=== PATIENT | male | born 1965 | race Caucasian/White ===

== ENCOUNTER → 2020-08-12 08:04 | Outpatient (CLI) | payer BC, SELFPAY ==
--- NOTE | 2020-08-12 08:07 | CT_ITS ---
Study: CT scan of the right lower extremity without contrast. COMPARISON: None. HISTORY: Right knee osteoarthritis, pain. TECHNIQUE: Axial images of the right hip, knee, and ankle were obtained without contrast. Images were reformatted and viewed in coronal and sagittal planes. Individualized dose optimization techniques were used for this CT. FINDINGS: There is no acute fracture or dislocation in the regional skeleton. Old avulsion fracture fragments are noted distal to the lateral malleolus. No lytic or sclerotic lesion is seen. There is no osseous erosion. Tricompartmental osteoarthritis of the right knee joint is noted. There is large knee joint effusion. The very large diverticulum is seen arising from the right aspect of the urinary bladder. CT/Extremity Lower without Contra IMPRESSION: CT scan of the right lower extremity performed per Makoplasty protocol for preoperative planning. Electronically Signed: Sourav Ya MD at 15:53 EDT Tel , Service support ,
== END ==
PROVIDERS: PCP Family Medicine; Referring Provider Orthopaedic Surgery; Visit Provider Orthopaedic Surgery
DX: M17.11 Unilateral primary osteoarthritis, right knee (principal)
CPT/HCPCS: 73700

== ENCOUNTER → 2020-09-10 15:26 | Outpatient (CLI) | payer BC, SELFPAY ==
--- NOTE | 2020-09-10 09:30 | KNEE_PTH ---
PATIENT: EMILIE MCDONALD LOC: [facility] U#:[id number] AGE/SX: 59/M ROOM: RE09/10/[address]: Dr. Lowell Alarcon MD : 1965 BED: DIS: SPEC #: [id number] RECD: 09/10/20 14:51 STATUS: ROJAS CRUZ #: [id number] LUPE: 09/10/20 09:[address]: Lowell Alarcon DEPT: SURGICAL PATHOLOGY RECD BY: Xiomara Banks ENTERED: 09/13/20 08:33 SP TYPE: TOTAL KNEE OTHR DR: Dr. Denton Gardner MD [facility] Tissues: Knee, NOS Procedures: Decalcification bone/plaque Surgery Specimen Level IV HEADER OPERATION: Robotic assisted right total knee arthroplasty PRE-OP DIAGNOSIS: Right knee severe primary osteoarthritis TISSUE SUBMITTED: Bone right knee MICROSCOPIC DIAGNOSIS Bone and tissue of right knee, total knee resection: Severe degenerative joint disease. Mild synovial hyperplasia. AM:ze 09/16/2020 MICROSCOPIC DESCRIPTION Slides are reviewed. GROSS DESCRIPTION Received is one container designated bone and soft tissue right knee. The specimen consists of multiple fragments of miller-yellow bone measuring in aggregate 11 x 11 x 3 cm. Also in the specimen container are multiple fragments of yellow-white soft tissue measuring in aggregate 9 x 9 x 3 cm. A number of bony fragments contain articular surfaces consistent with tibial plateau and femoral condyle and displaying prominent osteophyte formation, eburnation, and bone erosion. Truck Hopper sections are submitted in two cassettes as follows: 1 - soft tissue, 2 - bone after decalcification. / SJ:ze 09/13/20 TC:5 CPT: 22515, 68770
== END ==
PROVIDERS: PCP Family Medicine; Referring Provider Orthopaedic Surgery; Visit Provider Orthopaedic Surgery
DX: M17.11 Unilateral primary osteoarthritis, right knee (principal)
CPT/HCPCS: 88305; 88311

== ENCOUNTER 2021-01-04 08:30 | Outpatient (RCR) | payer BC, SELFPAY ==
[2020-12-14 09:35] VITALS: BP 199/98; PULSE 80; RESP 16; TEMP 36.4; BMI 20.9
--- NOTE | 2020-12-14 14:15 | PCM.WC.HP ---
History of Present Illness Date of Service: 12/14/20 Chief Complaint: Nonhealing, dehiscent surgical wound?right knee History of Wound: This is a 55-year-old male who was in his normal state of health until September 10, 2020. At that time, patient underwent knee replacement surgery. Surgery was performed at the [facility] by Dr. Lowell Alarcon. Patient's recovery has been largely uneventful, but for delayed healing of his surgical incision, which is a linear vertical incision anterior to the right knee. Patient denies significant drainage. He is ambulatory. He denies significant swelling in his distal right lower extremity, but the right knee joint is persistently swollen. Patient is a smoker, and smokes approximately 1-1/2 packs/day. [facility] Medical History (Updated 12/14/20 @ 14:[address] Mike Awan MD) Hypertension Nonhealing surgical wound Osteoarthritis, knee Swelling of knee joint, right Tobacco abuse Tobacco abuse counseling Wound dehiscence, surgical Home Medications aspirin 81 mg PO DAILY 12/14/20 [History Last Taken Unknown] ferrous sulfate 28 mg PO DAILY 12/14/20 [History Last Taken Unknown] yvqfrbyuiqu-fgqcxewzt-bnf C-Mn [Glucosamine 1500 Complex] 1 cap PO DAILY 12/14/20 [History Last Taken Unknown] ibuprofen [Motrin] 200 - 400 mg PO Q6H PRN 12/14/20 [History Last Taken Unknown] lisinopril 10 mg PO DAILY 12/14/20 [History Last Taken Unknown] lutein 20 mg PO DAILY 12/14/20 [History Last Taken Unknown] multivitamin 1 cap PO DAILY 12/14/20 [History Last Taken Unknown] turmeric 1 PO DAILY 12/14/20 [History Last Taken Unknown] Allergy/AdvReac Type Severity Reaction Status Date / Time No Known Allergies Allergy Verified 12/14/20 09:52 Social History Smoking Status: Current every day smoker Vital Signs Vital Signs Vital Signs: 12/14/20 09:35 Temperature 97.5 F L Temperature Source Temporal Pulse Rate 80 Respiratory Rate 16 Blood Pressure 199/98 H Blood Pressure Mean 131 Blood Pressure Source Monitor Blood Pressure Position Sitting Blood Pressure Location Right Arm Oxygen Delivery Method Room Air Weight Weight: 150 lb Body Mass Index (BMI) 20.9 Physical Exam Const alert, oriented x3, no apparent distress and well nourished Constitutional Narrative: The patient is of relatively normal body habitus. General Appearance: cooperative, comfortable, well kempt and well developed Orientation / Consciousness: awake, oriented to person, oriented to place and oriented to time Exam Limitations: no limitations HEENT normocephalic and head/scalp atraumatic Head and Scalp: normal to inspection, normocephalic and atraumatic External Ear: external ears normal Eyes PERRL and EOMs intact bilaterally General Eye: normal appearance of both eyes Resp normal respiratory effort, normal air movement, no retractions and no use of accessory muscles Effort and Inspection: able to speak in complete sentences Extremity no calf tenderness Extremity Narrative: A vertical linear incision is noted overlying the right knee. Significant swelling is noted about the right knee. General Extremity: Negative for clubbing or cyanosis Skin Wound Narrative: There are three small dehiscent areas within the upper portion of the patient's recent surgical incision related to right knee replacement surgery, performed on September 10, 2020. These dehiscent portions of the surgical wound are small in size, with a significant amount of overlying bioburden. There is no sign of infection or cellulitis. Dimensions are documented elsewhere. Neuro oriented x3, CN's II-XII intact bilaterally and moves all extremities Sensorium / Orientation: awake, alert, oriented to person, oriented to place and oriented to time Psych Appearance: grossly normal and appropriate Attitude: calm Activity / Motor Behavior: appropriate eye contact Speech: normal speech Mood & Affect: euthymic mood Thought Process: normal thought process Thought Content: normal thought content Attention / Concentration: attention grossly intact Debridement Note Debridement Note Wound debrided: Dehiscent right knee incision Laterality: Right Type of Debridement: Excisional debridement Anesthesia Used: 5% Lidocaine Gel Depth: Down to and including healthy tissue and in the subcutaneous layer Percentage of wound debrided: 100 Instrument Used: 3mm curette Tissue Removed: Bioburden Severity: Fat Layer Exposed Amount of bleeding with debridement: Mild Bleeding Controlled with: Compression and gauze Patient tolerated procedure: Patient tolerated procedure well Post-Debridement Measurements and Additional Note: Post-Debridement Measurements/Treatment SEMAJ - Nurse 1 - General Ulcer Assessment Start: 12/14/20 09:35 Freq: Status: Active Protocol: SHRUTI Activity Type Activity Date Activity User E-Sign Co-Sign Detail Recorded Client Recorded Date Recorded By Document 12/14/20 09:35 [facility] [id number] 12/14/20 09:45 BMF 12/14/20 09:35 WC - Today's Visit Information Type of service Initial Visit Arrival Mode Ambulatory Transfer Assistance None Patient Identification Verified (Name & Yes ) Patient Requires Transmission-Based No Precautions Height and Weight Height 5 ft 11 in Weight 150 lb Weight in Pounds 150.0 lbs Weight Measurement Method Estimated by Patient Body Mass Index (BMI) 20.9 BMI Classification Normal BSA - Jose 1.87 Vital Signs Temperature (97.8 F-99.1 F) 97.5 F L Temperature Source Temporal Pulse Rate (60-100) 80 Pulse Location Monitor Respiratory Rate (12-18) 16 Respiratory rate source Observation Oxygen Delivery Method Room Air Blood Pressure (90/60-120/80) 199/98 H Blood Pressure Mean 131 Source Monitor Position Sitting Blood Pressure Location Right Arm History Since Last Visit- (Skip if this is Patient's initial visit) Left Footwear Regular Shoe Right Footwear Regular Shoe Pain Scale: 0-10 Numeric Is Patient Pain Free? Yes Lower Extremity Assessment/ Foot Assessment/ Toe Nail Assessment Left -Posterior Tibial Palpable Yes -Posterior Tibial Doppler Multiphasic -Dorsalis Pedis Palpable Yes -Dorsalis Pedis Doppler Multiphasic -Extremity Color Pale -Hair Growth on Legs Yes -Hair Growth on Toes No -Thick Yes -Discolored Yes -Deformed No -Improper Length & Hygeine No Right -Posterior Tibial Palpable No -Posterior Tibial Doppler Multiphasic -Dorsalis Pedis Palpable No -Dorsalis Pedis Doppler Multiphasic -Extremity Color Red -Hair Growth on Legs Yes -Hair Growth on Toes No -Thick No -Discolored No -Deformed No -Improper Length & Hygeine No Neuropathy Assessment Feet - Top Side and Bottom <Entered> (a) Communication Assessment Preferred language Indonesian Power 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 Operator Required No Able to Read Yes Able to Write Yes Communication Tools None Right Hearing Abillity Normal Left Hearing Abillity Normal Visual Assistive Devices Glasses Teaching Assessment Preferences Verbal,Written, Audio/Visual, Demonstration Barriers to Learning None Readiness To Learn Excellent Willingness to Engage in Self Management High Activies Readiness to Engage in Self Management High Activities Anxiety Level Calm Cooperation Cooperative Perception Coherent Interest in Health Problem Asks Questions Education Importance Acknowledges Need Does Patient Smoke tobacco or other No substances Smoking Status Current every day smoker Is Patient Diabetic No Functional Assessment Recent Decline in Ability to Perform Denies Any Declines Culture/Holiness/Mailroom Assistant Cultural/Holiness Needs that may affect No Treatment Plan Teaching: Wound Center *Welcome to the Wound Center -Person Taught Patient -Teaching Method Discussion -Response to teaching Verbalize understanding Welcome to the Wound Care Center Indonesian (a) 1 - + WC - Nurse 1 - General Ulcer Measurement Start: 12/14/20 09:35 Freq: Status: Active Protocol: Activity Type Activity Date Activity User E-Sign Co-Sign Detail Recorded Client Recorded Date Recorded By Document 12/14/20 09:35 [facility] [id number] 12/14/20 09:45 BM 12/14/20 09:35 Wound Center Nurse 1 #1- R KNEE SURGICAL INCISION CLUSTER -Combined with other wound No -Current Size (cm) - Length 2.8 -Current Size (cm) - Width 0.7 -Current Size (cm) - Depth 0.2 -Total Square Cm 1.96 -Date of Last Picture (Recall this 12/14/20 field) -Photo Taken Yes -Epithelialization None Present -Tunneling No -Undermining/Tunneling No -Circular Undermining No -Exudate Amt Medium -Exudate Type Serosanguineous -Wound Margin Distinct, Outline Attached -Granulation Amt Small (1-33%) -Granulation Quality Red -Slough/Fibrin Yes -Necrosis Amt Large (67-100%) -Necrotic Tissue Type Adherent Slough -Texture (Aviva-wound Skin Appearance) Assessed, Localized Edema ,Scarring -Moisture (Aviva-wound Skin Appearance) Assessed -Color (Aviva-wound Skin Appearance) Assessed, Erythema -Temperature (Aviva-wound Skin No Abnormality Appearance) (Pt Warm) -Tenderness on Palpation (Aviva-wound No Skin Appearance) -Ulcer Cleansing Rinsed/ Irrigated with Saline -Foul Odor after Cleansing No -Anesthetic Used 4% Lidocaine Solution Lower Limb Edema Present Yes Right Calf (cm) 33.5 Right Ankle (cm) 22.4 Left Calf (cm) 33.5 Left Ankle (cm) 21 WC - Nurse 2 - General Ulcer CM Notes Start: 12/14/20 09:35 Freq: Status: Active Protocol: Activity Type Activity Date Activity User E-Sign Co-Sign Detail Recorded Client Recorded Date Recorded By Document 12/14/20 10:37 PL [id number] 12/14/20 10:39 PL 12/14/20 10:37 Wound Center Nurse 2 #1- R KNEE SURGICAL INCISION CLUSTER -Time 10:12 -Correct Patient Yes -Correct Side, Site, Position Yes -Correct Procedure Yes -Procedure Performed Yes -Type of Procedure Debridement -Clinical Debridement Subcutaneous -Tissue Removed Subcutaneous -Post Debridement (cm) - Length 2.8 -Post Debridement (cm) - Width 0.7 -Post Debridement (cm) - Depth 0.2 -Total Square (Post) (cm) 1.96 -Area of Debridement (cm) - Length 2.8 -Area of Debridement (cm) - Width 0.7 -Total Square (Area) (cm) 1.96 -Tunneling No -Undermining/Tunneling No -Circular Undermining No -Wound/Ulcer Outcome Not Healed -Ulcer Cleansing Rinsed/ Irrigated with Saline -Foul Odor after Cleansing No -Bioengineered Tissue No -Bleeding Controlled with Pressure -Treatment Response Procedure Tolerated Well -Debridement - Subq, 1st 20sq cm Yes Assessment/Plan Assessment/Plan (1) Nonhealing surgical wound: CODE(S): T81.89XA - Other complications of procedures, not elsewhere classified, initial encounter (2) Wound dehiscence, surgical: CODE(S): T81.31XA - Disruption of external operation (surgical) wound, not elsewhere classified, initial encounter (3) Swelling of knee joint, right: CODE(S): M25.461 - Effusion, right knee (4) Osteoarthritis, knee: CODE(S): M17.10 - Unilateral primary osteoarthritis, unspecified knee (5) Hypertension: CODE(S): I10 - Essential (primary) hypertension (6) Tobacco abuse: CODE(S): Z72.0 - Tobacco use (7) Tobacco abuse counseling: CODE(S): Z71.6 - Tobacco abuse counseling PLAN: This is a 55-year-old male who underwent right total knee replacement on September 10, 2020. He has recovered relatively uneventfully, but for surgical wound which have failed to heal appropriately. Evaluation reveals several small nonhealing portions of the surgical wound, in the upper portion of his linear vertical right knee incision. Excisional debridement has been performed, and we are to implement the use of Aquacel topically on a daily basis. Patient has been instructed in the appropriate means of application. Is to return in 1 week for reassessment. The patient is a smoker, and has been counseled as to the adverse effects of smoking, including impaired wound healing. Optimization of the patient's nutrition has been advised. Because the patient is generally healthy and active, metabolic abnormalities are not suspected, and laboratory testing will not be performed initially. Laboratory testing will be considered, however, if healing does not progress as expected. Patient is to return in 1 week for reassessment. Total time: 65 minutes
[2020-12-21 08:38] VITALS: BP 187/87; PULSE 82; RESP 16; TEMP 36.3; BMI 20.9
--- NOTE | 2020-12-21 09:13 | HP.PCM_ITS ---
History of Present Illness Date of Service: 12/21/20 Chief Complaint: Nonhealing, dehiscent surgical wound?right knee History of Wound: This is a 55-year-old male who was in his normal state of health until September 10, 2020. At that time, patient underwent knee replacement surgery. Surgery was performed at the [facility] by Dr. Lowell Alarcon. Patient's recovery has been largely uneventful, but for delayed healing of his surgical incision, which is a linear vertical incision anterior to the right knee. Patient denies significant drainage. He is ambulatory. He denies significant swelling in his distal right lower extremity, but the right knee joint is persistently swollen. Patient is a smoker, and smokes approximately 1-1/2 packs/day. [facility] Medical History Hypertension Nonhealing surgical wound Osteoarthritis, knee Swelling of knee joint, right Tobacco abuse Tobacco abuse counseling Wound dehiscence, surgical Home Medications aspirin 81 mg PO DAILY 12/14/20 [History Last Taken Unknown] ferrous sulfate 28 mg PO DAILY 12/14/20 [History Last Taken Unknown] [id number] C-Mn [Glucosamine 1500 Complex] 1 cap PO DAILY 12/14/20 [History Last Taken Unknown] ibuprofen [Motrin] 200 - 400 mg PO Q6H PRN 12/14/20 [History Last Taken Unknown] lisinopril 10 mg PO DAILY 12/14/20 [History Last Taken Unknown] lutein 20 mg PO DAILY 12/14/20 [History Last Taken Unknown] multivitamin 1 cap PO DAILY 12/14/20 [History Last Taken Unknown] turmeric 1 PO DAILY 12/14/20 [History Last Taken Unknown] Allergy/AdvReac Type Severity Reaction Status Date / Time No Known Allergies Allergy Verified 12/14/20 09:52 Social History Smoking Status: Current every day smoker Vital Signs Vital Signs Vital Signs: 12/21/20 08:38 Temperature 97.3 F L Temperature Source Temporal Pulse Rate 82 Respiratory Rate 16 Blood Pressure 187/87 H Blood Pressure Mean 120 Blood Pressure Source Monitor Blood Pressure Position Sitting Blood Pressure Location Right Arm Weight Weight: 150 lb Body Mass Index (BMI) 20.9 Physical Exam Const alert, oriented x3, no apparent distress and well nourished General Appearance: cooperative and well developed Orientation / Consciousness: awake, oriented to person, oriented to place and oriented to time HEENT normocephalic and head/scalp atraumatic Head and Scalp: normal to inspection, normocephalic and atraumatic External Ear: external ears normal Eyes PERRL and EOMs intact bilaterally General Eye: normal appearance of both eyes Resp normal respiratory effort, normal air movement, no retractions and no use of accessory muscles Effort and Inspection: able to speak in complete sentences Extremity no calf tenderness General Extremity: Negative for clubbing or cyanosis Skin Wound Narrative: The surgical wound on the patient's right anterior knee persists, though is smaller in size. Dimensions are documented elsewhere. There is a moderate amount of bioburden. There is no sign of infection or cellulitis. Neuro oriented x3 and CN's II-XII intact bilaterally Sensorium / Orientation: awake, alert, oriented to person, oriented to place and oriented to time Psych Appearance: grossly normal and appropriate Attitude: calm Activity / Motor Behavior: appropriate eye contact Speech: normal speech Mood & Affect: euthymic mood Thought Process: normal thought process Thought Content: normal thought content Attention / Concentration: attention grossly intact Debridement Note Debridement Note Wound debrided: Right anterior knee Laterality: Right Type of Debridement: Excisional debridement Anesthesia Used: 5% Lidocaine Gel Depth: Down to and including healthy tissue and in the subcutaneous layer Percentage of wound debrided: 100 Instrument Used: 3mm curette Tissue Removed: Bioburden Severity: Fat Layer Exposed Amount of bleeding with debridement: Mild Bleeding Controlled with: Compression and gauze Patient tolerated procedure: Patient tolerated procedure well Post-Debridement Measurements and Additional Note: Post-Debridement Measurements/Treatment - Nurse 1 - General Ulcer Assessment Start: 12/14/20 09:35 Freq: Status: Active Protocol: SHRUTI Activity Type Activity Date Activity User E-Sign Co-Sign Detail Recorded Client Recorded Date Recorded By Document 12/14/20 09:35 [facility] [id number] 12/14/20 09:45 [facility] Document 12/21/20 08:38 ML [id number] 12/21/20 08:45 ML 12/14/20 12/21/20 09:35 08:38 - Today's Visit Information Type of service Initial Visit Follow-up Visit (Physician/GAGE MAKER ) Arrival Mode Ambulatory Ambulatory Transfer Assistance None Patient Identification Verified (Name & Yes Yes ) Patient Requires Transmission-Based No No Precautions Safety Precautions NA Height and Weight Height 5 ft 11 in Weight 150 lb Weight in Pounds 150.0 lbs Weight Measurement Method Estimated by Patient Body Mass Index (BMI) 20.9 20.9 BMI Classification Normal Normal BSA - Jose 1.87 Vital Signs Temperature (97.8 F-99.1 F) 97.5 F L 97.3 F L Temperature Source Temporal Temporal Pulse Rate (60-100) 80 82 Pulse Location Monitor Monitor Respiratory Rate (12-18) 16 16 Respiratory rate source Observation Observation Oxygen Delivery Method Room Air Blood Pressure (90/60-120/80) 199/98 H 187/87 H Blood Pressure Mean 131 120 Source Monitor Monitor Position Sitting Sitting Blood Pressure Location Right Arm Right Arm Have you changed medications since your No last visit? Any new allergies or adverse reactions No Had a fall/change in ADL's that may No increase risk of falls Signs or symptoms of abuse and/or No neglect since last visit Have you been in the hospital since your No last visit? Has dressing in place as prescribed Yes Has compression in place as prescribed N/A Has offloadiing in place as prescribed N/A Experienced any changes in pain level or No management History Since Last Visit- (Skip if this is Patient's initial visit) Left Footwear Regular Shoe Regular Shoe Right Footwear Regular Shoe Regular Shoe Pain Scale: 0-10 Numeric Is Patient Pain Free? Yes Yes Lower Extremity Assessment/ Foot Assessment/ Toe Nail Assessment Left -Posterior Tibial Palpable Yes -Posterior Tibial Doppler Multiphasic -Dorsalis Pedis Palpable Yes -Dorsalis Pedis Doppler Multiphasic -Extremity Color Pale -Hair Growth on Legs Yes -Hair Growth on Toes No -Thick Yes -Discolored Yes -Deformed No -Improper Length & Hygeine No Right -Posterior Tibial Palpable No -Posterior Tibial Doppler Multiphasic -Dorsalis Pedis Palpable No -Dorsalis Pedis Doppler Multiphasic -Extremity Color Red -Hair Growth on Legs Yes -Hair Growth on Toes No -Thick No -Discolored No -Deformed No -Improper Length & Hygeine No Neuropathy Assessment Feet - Top Side and Bottom <Entered> (a) Communication Assessment Preferred language [place] [facility] Administrator Required No Able to Read Yes Able to Write Yes Communication Tools None Right Hearing Abillity Normal Left Hearing Abillity Normal Visual Assistive Devices Glasses Teaching Assessment Preferences Verbal,Written, Audio/Visual, Demonstration Barriers to Learning None Readiness To Learn Excellent Willingness to Engage in Self Management High Activies Readiness to Engage in Self Management High Activities Anxiety Level Calm Cooperation Cooperative Perception Coherent Interest in Health Problem Asks Questions Education Importance Acknowledges Need Does Patient Smoke tobacco or other No substances Smoking Status Current every day smoker Is Patient Diabetic No Functional Assessment Recent Decline in Ability to Perform Denies Any Declines 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 Cultural/Restorationist Needs that may affect No Treatment Plan Teaching: Wound Center *Welcome to the Wound Center -Person Taught Patient -Teaching Method Discussion -Response to teaching Verbalize understanding Welcome to the Wound Care Center Maced[place] (a) 1 - + WC - Nurse 1 - General Ulcer Measurement Start: 12/14/20 09:35 Freq: Status: Active Protocol: Activity Type Activity Date Activity User E-Sign Co-Sign Detail Recorded Client Recorded Date Recorded By Document 12/14/20 09:35 [facility] [id number] 12/14/20 09:45 [facility] Document 12/21/20 08:38 ML [id number] 12/21/20 08:45 ML 12/14/20 12/21/20 09:35 08:38 Wound Center Nurse 1 #1- R KNEE SURGICAL INCISION CLUSTER -Combined with other wound No -Current Size (cm) - Length 2.8 2 -Current Size (cm) - Width 0.7 0.1 -Current Size (cm) - Depth 0.2 0.1 -Total Square Cm 1.96 0.2 -Date of Last Picture (Recall this 12/14/20 field) -Photo Taken Yes -Epithelialization None Present -Tunneling No -Undermining/Tunneling No -Circular Undermining No -Exudate Amt Medium Small -Exudate Type Serosanguineous Serosanguineous -Wound Margin Distinct, Distinct, Outline Outline Attached Attached -Granulation Amt Small (1-33%) Small (1-33%) -Granulation Quality Red -Slough/Fibrin Yes No -Necrosis Amt Large (67-100%) None Present (0 %) -Necrotic Tissue Type Adherent Slough -Texture (Aviva-wound Skin Appearance) Assessed, Assessed Localized Edema ,Scarring -Moisture (Aviva-wound Skin Appearance) Assessed Assessed -Color (Aviva-wound Skin Appearance) Assessed, Assessed Erythema -Temperature (Aviva-wound Skin No Abnormality No Abnormality Appearance) (Pt Warm) (Pt Warm) -Tenderness on Palpation (Aviva-wound No No Skin Appearance) -Ulcer Cleansing Rinsed/ Rinsed/ Irrigated with Irrigated with Saline Saline -Foul Odor after Cleansing No -Anesthetic Used 4% Lidocaine 5% Lidocaine Solution Gel Lower Limb Edema Present Yes Right Calf (cm) 33.5 Right Ankle (cm) 22.4 Left Calf (cm) 33.5 Left Ankle (cm) 21 WC - Nurse 2 - General Ulcer CM Notes Start: 12/14/20 09:35 Freq: Status: Active Protocol: Activity Type Activity Date Activity User E-Sign Co-Sign Detail Recorded Client Recorded Date Recorded By Document 12/14/20 10:37 PL [id number] 12/14/20 10:39 PL 12/14/20 10:37 Wound Center Nurse 2 -Time 10:12 -Correct Patient Yes -Correct Side, Site, Position Yes -Correct Procedure Yes -Procedure Performed Yes -Type of Procedure Debridement -Clinical Debridement Subcutaneous -Tissue Removed Subcutaneous -Post Debridement (cm) - Length 2.8 -Post Debridement (cm) - Width 0.7 -Post Debridement (cm) - Depth 0.2 -Total Square (Post) (cm) 1.96 -Area of Debridement (cm) - Length 2.8 -Area of Debridement (cm) - Width 0.7 -Total Square (Area) (cm) 1.96 -Tunneling No -Undermining/Tunneling No -Circular Undermining No -Wound/Ulcer Outcome Not Healed -Ulcer Cleansing Rinsed/ Irrigated with Saline -Foul Odor after Cleansing No -Bioengineered Tissue No -Bleeding Controlled with Pressure -Treatment Response Procedure Tolerated Well -Debridement - Subq, 1st 20sq cm Yes Assessment/Plan Assessment/Plan (1) Nonhealing surgical wound: CODE(S): T81.89XA - Other complications of procedures, not elsewhere classified, initial encounter (2) Wound dehiscence, surgical: CODE(S): T81.31XA - Disruption of external operation (surgical) wound, not elsewhere classified, initial encounter (3) Tobacco abuse counseling: CODE(S): Z71.6 - Tobacco abuse counseling (4) Tobacco abuse: CODE(S): Z72.0 - Tobacco use (5) Hypertension: CODE(S): I10 - Essential (primary) hypertension (6) Osteoarthritis, knee: CODE(S): M17.10 - Unilateral primary osteoarthritis, unspecified knee (7) Swelling of knee joint, right: CODE(S): M25.461 - Effusion, right knee PLAN: This is a 55-year-old male who underwent right total knee replacement on September 10, 2020. He has recovered relatively uneventfully, but for surgical wound which have failed to heal appropriately. Evaluation reveals several small nonhealing portions of the surgical wound, in the upper portion of his linear vertical right knee incision. Excisional debridement has been performed, and we are to continue the use of Aquacel topically on a daily basis. Patient has been instructed in the appropriate means of application. He is to return in 1 week for reassessment. The patient is a smoker, and has been counseled as to the adverse effects of smoking, including impaired wound healing. Optimization of the patient's nutrition has been advised. Because the patient is generally healthy and active, metabolic abnormalities are not suspected, and laboratory testing will not be performed initially. Laboratory testing will be considered, however, if healing does not progress as expected. Patient is to return in 1 week for reassessment. Total time: 29 minutes
[2020-12-28 09:14] VITALS: BP 179/90; PULSE 82; RESP 18; TEMP 36.3; BMI 20.9
--- NOTE | 2020-12-28 13:48 | HP.PCM_ITS ---
History of Present Illness Date of Service: 12/28/20 Chief Complaint: Nonhealing, dehiscent surgical wound?right knee History of Wound: This is a 55-year-old male who was in his normal state of health until September 10, 2020. At that time, patient underwent knee replacement surgery. Surgery was performed at the [facility] by Dr. Lowell Alarcon. Patient's recovery has been largely uneventful, but for delayed healing of his surgical incision, which is a linear vertical incision anterior to the right knee. Patient denies significant drainage. He is ambulatory. He denies significant swelling in his distal right lower extremity, but the right knee joint is persistently swollen. Patient is a smoker, and smokes approximately 1-1/2 packs/day. [facility] Medical History Hypertension Nonhealing surgical wound Osteoarthritis, knee Swelling of knee joint, right Tobacco abuse Tobacco abuse counseling Wound dehiscence, surgical Home Medications aspirin 81 mg PO DAILY 12/14/20 [History Last Taken Unknown] ferrous sulfate 28 mg PO DAILY 12/14/20 [History Last Taken Unknown] yzcdjpozube-skjlnjhly-wrw C-Mn [Glucosamine 1500 Complex] 1 cap PO DAILY 12/14/20 [History Last Taken Unknown] ibuprofen [Motrin] 200 - 400 mg PO Q6H PRN 12/14/20 [History Last Taken Unknown] lisinopril 10 mg PO DAILY 12/14/20 [History Last Taken Unknown] lutein 20 mg PO DAILY 12/14/20 [History Last Taken Unknown] multivitamin 1 cap PO DAILY 12/14/20 [History Last Taken Unknown] turmeric 1 PO DAILY 12/14/20 [History Last Taken Unknown] Allergy/AdvReac Type Severity Reaction Status Date / Time No Known Allergies Allergy Verified 12/14/20 09:52 Social History Smoking Status: Current every day smoker Vital Signs Vital Signs Vital Signs: 12/28/20 09:14 Temperature 97.3 F L Temperature Source Temporal Pulse Rate 82 Respiratory Rate 18 Blood Pressure 179/90 H Blood Pressure Mean 119 Blood Pressure Source Monitor Weight Weight: 150 lb Body Mass Index (BMI) 20.9 Physical Exam Const alert, oriented x3, no apparent distress and well nourished General Appearance: cooperative and well developed Orientation / Consciousness: awake, oriented to person, oriented to place and oriented to time HEENT normocephalic and head/scalp atraumatic Head and Scalp: normal to inspection, normocephalic and atraumatic External Ear: external ears normal Eyes PERRL and EOMs intact bilaterally General Eye: normal appearance of both eyes Resp normal respiratory effort, normal air movement, no retractions and no use of accessory muscles Effort and Inspection: able to speak in complete sentences Extremity no calf tenderness General Extremity: Negative for clubbing or cyanosis Skin Wound Narrative: Slight swelling and edema are noted about the right knee. A vertical surgical incision is noted at the level of the right knee. It is generally well approximated, but for several very small areas of dehiscence and lack of healing. These areas are generally pink and healthy in appearance, with no evidence of erythema or cellulitis. There is a small amount of bioburden. Dimensions are documented elsewhere. Neuro oriented x3 and CN's II-XII intact bilaterally Sensorium / Orientation: awake, alert, oriented to person, oriented to place and oriented to time Psych Appearance: grossly normal and appropriate Attitude: calm Activity / Motor Behavior: appropriate eye contact Speech: normal speech Mood & Affect: euthymic mood Thought Process: normal thought process Thought Content: normal thought content Attention / Concentration: attention grossly intact Debridement Note Debridement Note Wound debrided: Right knee incision Laterality: Right Type of Debridement: Excisional debridement Anesthesia Used: 5% Lidocaine Gel Depth: Down to and including healthy tissue and in the subcutaneous layer Percentage of wound debrided: 100 Instrument Used: 5mm curette Tissue Removed: Bioburden Severity: Fat Layer Exposed Amount of bleeding with debridement: Mild Bleeding Controlled with: Compression and gauze Patient tolerated procedure: Patient tolerated procedure well Post-Debridement Measurements and Additional Note: Post-Debridement Measurements/Treatment SEMAJ - Nurse 1 - General Ulcer Assessment Start: 12/14/20 09:35 Freq: Status: Active Protocol: SHRUTI Activity Type Activity Date Activity User E-Sign Co-Sign Detail Recorded Client Recorded Date Recorded By Document 12/14/20 09:35 BMF [id number] 12/14/20 09:45 BMF Document 12/21/20 08:38 ML [id number] 12/21/20 08:45 ML Document 12/28/20 09:14 DL [id number] 12/28/20 09:21 DL 12/14/20 12/21/20 12/28/20 09:35 08:38 09:14 WC - Today's Visit Information Type of service Initial Visit Follow-up Visit Follow-up Visit (Physician/GLOBAL MARKETING SPECIALIST (Physician/GLOBAL MARKETING SPECIALIST ) ) Arrival Mode Ambulatory Ambulatory Ambulatory Transfer Assistance None None Patient Identification Verified (Name & Yes Yes Yes ) Patient Requires Transmission-Based No No No Precautions Safety Precautions NA Height and Weight Height 5 ft 11 in Weight 150 lb Weight in Pounds 150.0 lbs Weight Measurement Method Estimated by Patient Body Mass Index (BMI) 20.9 20.9 20.9 BMI Classification Normal Normal Normal BSA - Jose 1.87 Vital Signs Temperature (97.8 F-99.1 F) 97.5 F L 97.3 F L 97.3 F L Temperature Source Temporal Temporal Temporal Pulse Rate (60-100) 80 82 82 Pulse Location Monitor Monitor Monitor Respiratory Rate (12-18) 16 16 18 Respiratory rate source Observation Observation Observation Oxygen Delivery Method Room Air Blood Pressure (90/60-120/80) 199/98 H 187/87 H 179/90 H Blood Pressure Mean 131 120 119 Source Monitor Monitor Monitor Position Sitting Sitting Blood Pressure Location Right Arm Right Arm Have you changed medications since your No No last visit? Any new allergies or adverse reactions No No Had a fall/change in ADL's that may No No increase risk of falls Signs or symptoms of abuse and/or No No neglect since last visit Have you been in the hospital since your No No last visit? Has dressing in place as prescribed Yes Yes Has compression in place as prescribed N/A Yes Has offloadiing in place as prescribed N/A Yes Experienced any changes in pain level or No No management History Since Last Visit- (Skip if this is Patient's initial visit) Left Footwear Regular Shoe Regular Shoe Right Footwear Regular Shoe Regular Shoe Pain Scale: 0-10 Numeric Is Patient Pain Free? Yes Yes Yes Lower Extremity Assessment/ Foot Assessment/ Toe Nail Assessment Left -Posterior Tibial Palpable Yes -Posterior Tibial Doppler Multiphasic -Dorsalis Pedis Palpable Yes -Dorsalis Pedis Doppler Multiphasic -Extremity Color Pale -Hair Growth on Legs Yes -Hair Growth on Toes No -Thick Yes -Discolored Yes -Deformed No -Improper Length & Hygeine No Right -Posterior Tibial Palpable No -Posterior Tibial Doppler Multiphasic -Dorsalis Pedis Palpable No -Dorsalis Pedis Doppler Multiphasic -Extremity Color Red -Hair Growth on Legs Yes -Hair Growth on Toes No -Thick No -Discolored No -Deformed No -Improper Length & Hygeine No Neuropathy Assessment Feet - Top Side and Bottom <Entered> (a) Communication Assessment Preferred language Malay Core Cleaner Required No Able to Read Yes Able to Write Yes Communication Tools None Right Hearing Abillity Normal Left Hearing Abillity Normal Visual Assistive Devices Glasses Teaching Assessment Preferences Verbal,Written, Audio/Visual, Demonstration Barriers to Learning None Readiness To Learn Excellent Willingness to Engage in Self Management High Activies Readiness to Engage in Self Management High Activities Anxiety Level Calm Cooperation Cooperative Perception Coherent Interest in Health Problem Asks Questions Education Importance Acknowledges Need Does Patient Smoke tobacco or other No substances Smoking Status Current every day smoker Is Patient Diabetic No Functional Assessment Recent Decline in Ability to Perform Denies Any Declines Culture/Nondenominational/Insurance Appraiser Cultural/Nondenominational Needs that may affect No Treatment Plan Teaching: Wound Center *Welcome to the Wound Center -Person Taught Patient -Teaching Method Discussion -Response to teaching Verbalize understanding Welcome to the Wound Care Center Malay (a) 1 - + WC - Nurse 1 - General Ulcer Measurement Start: 12/14/20 09:35 Freq: Status: Active Protocol: Activity Type Activity Date Activity User E-Sign Co-Sign Detail Recorded Client Recorded Date Recorded By Document 12/14/20 09:35 BMF [id number] 12/14/20 09:45 BMF Document 12/21/20 08:38 ML [id number] 12/21/20 08:45 ML Document 12/28/20 09:14 DL [id number] 12/28/20 09:21 DL 12/14/20 12/21/20 12/28/20 09:35 08:38 09:14 Wound Center Nurse 1 #1- R KNEE SURGICAL INCISION CLUSTER -Combined with other wound No -Current Size (cm) - Length 2.8 2 1.8 -Current Size (cm) - Width 0.7 0.1 0.3 -Current Size (cm) - Depth 0.2 0.1 0.1 -Total Square Cm 1.96 0.2 0.54 -Date of Last Picture (Recall this 12/14/20 field) -Photo Taken Yes No -Epithelialization None Present -Tunneling No -Undermining/Tunneling No -Circular Undermining No -Exudate Amt Medium Small None Present -Exudate Type Serosanguineous Serosanguineous -Wound Margin Distinct, Distinct, Thickened Outline Outline Attached Attached -Granulation Amt Small (1-33%) Small (1-33%) None Present (0 %) -Granulation Quality Red -Slough/Fibrin Yes No -Necrosis Amt Large (67-100%) None Present (0 Large (67-100%) %) -Necrotic Tissue Type Adherent Slough Adherent Slough -Structure Exposed N/A -Texture (Aviva-wound Skin Appearance) Assessed, Assessed Localized Edema Localized Edema ,Scarring ,Scarring -Moisture (Aviva-wound Skin Appearance) Assessed Assessed No Abnormality -Color (Aviva-wound Skin Appearance) Assessed, Assessed No Abnormality Erythema -Temperature (Aviva-wound Skin No Abnormality No Abnormality No Abnormality Appearance) (Pt Warm) (Pt Warm) (Pt Warm) -Tenderness on Palpation (Aviva-wound No No No Skin Appearance) -Ulcer Cleansing Rinsed/ Rinsed/ Soap and Water Irrigated with Irrigated with Saline Saline -Foul Odor after Cleansing No Yes, Due to Product Use -Anesthetic Used 4% Lidocaine 5% Lidocaine 4% Lidocaine Solution Gel Solution Lower Limb Edema Present Yes Right Calf (cm) 33.5 Right Ankle (cm) 22.4 Left Calf (cm) 33.5 Left Ankle (cm) 21 WC - Nurse 2 - General Ulcer CM Notes Start: 12/14/20 09:35 Freq: Status: Active Protocol: Activity Type Activity Date Activity User E-Sign Co-Sign Detail Recorded Client Recorded Date Recorded By Document 12/14/20 10:37 PL [id number] 12/14/20 10:39 PL Document 12/21/20 12:13 PL [id number] 12/21/20 12:14 PL Document 12/28/20 10:11 PL [id number] 12/28/20 10:12 PL 12/14/20 12/21/20 12/28/20 10:37 12:13 10:11 Wound Center Nurse 2 -Time 10:12 09:00 09:30 -Correct Patient Yes Yes Yes -Correct Side, Site, Position Yes Yes Yes -Correct Procedure Yes Yes Yes -Procedure Performed Yes Yes Yes -Type of Procedure Debridement Debridement Debridement -Clinical Debridement Subcutaneous Subcutaneous Subcutaneous -Tissue Removed Subcutaneous Subcutaneous Subcutaneous -Post Debridement (cm) - Length 2.8 2.0 0.5 -Post Debridement (cm) - Width 0.7 0.1 0.4 -Post Debridement (cm) - Depth 0.2 0.1 0.1 -Total Square (Post) (cm) 1.96 0.20 0.20 -Area of Debridement (cm) - Length 2.8 2.0 0.5 -Area of Debridement (cm) - Width 0.7 0.1 0.4 -Total Square (Area) (cm) 1.96 0.20 0.20 -Tunneling No No No -Undermining/Tunneling No No No -Circular Undermining No No No -Wound/Ulcer Outcome Not Healed Not Healed Not Healed -Ulcer Cleansing Rinsed/ Rinsed/ Rinsed/ Irrigated with Irrigated with Irrigated with Saline Saline Saline -Foul Odor after Cleansing No No No -Bioengineered Tissue No No No -Bleeding Controlled with Pressure Pressure Pressure -Treatment Response Procedure Procedure Procedure Tolerated Well Tolerated Well Tolerated Well -Debridement - Subq, 1st 20sq cm Yes Yes Yes - Nurse 3 - General Ulcer D/C NN Start: 12/14/20 09:35 Freq: Status: Active Protocol: Activity Type Activity Date Activity User E-Sign Co-Sign Detail Recorded Client Recorded Date Recorded By Document 12/21/20 09:12 [facility] [id number] 12/21/20 09:13 [facility] Document 12/28/20 09:39 [id number] 12/28/20 09:39 MW 12/21/20 12/28/20 09:12 09:39 Wound Care Nurse 3 #1- R KNEE SURGICAL INCISION CLUSTER -Ulcer Cleansing Rinsed/ Rinsed/ Irrigated with Irrigated with Saline Saline -Foul Odor after Cleansing No No -Negative Pressure Wound Therapy N/A -Primary Dressing Applied Aquacel Extra Aquacel Extra -Primary Dressing Covered/Secured with Dry Gauze,Other Dry Gauze & Roll Gauze, Secured with Tape -Other Covering secured w/ alem -Aquacel Extra 1 1 Right -Other pts own alem applied Treatment Response Procedure Procedure Tolerated Well Tolerated Well Pain Scale: 0-10 Numeric Is Patient Pain Free? Yes Yes Teaching: Wound Center Dressing Your Wound -Person Taught Patient -Teaching Method Discussion -Response to teaching Verbalize understanding WC - Visit Discharge Discharge Condition Stable Stable Ambulatory Status Ambulatory Ambulatory Transportation Private Auto Private Auto Accompanied by self Medication Reconcilliation completed & No provided to patient/care provider Clinical Summary of Care Provided Yes Assessment/Plan Assessment/Plan (1) Nonhealing surgical wound: CODE(S): T81.89XA - Other complications of procedures, not elsewhere classified, initial encounter (2) Wound dehiscence, surgical: CODE(S): T81.31XA - Disruption of external operation (surgical) wound, not elsewhere classified, initial encounter (3) Swelling of knee joint, right: CODE(S): M25.461 - Effusion, right knee (4) Tobacco abuse: CODE(S): Z72.0 - Tobacco use (5) Tobacco abuse counseling: CODE(S): Z71.6 - Tobacco abuse counseling (6) Hypertension: CODE(S): I10 - Essential (primary) hypertension (7) Osteoarthritis, knee: CODE(S): M17.10 - Unilateral primary osteoarthritis, unspecified knee PLAN: This is a 55-year-old male who underwent right total knee replacement on September 10, 2020. He has recovered relatively uneventfully, but for surgical wound which have failed to heal appropriately. Evaluation reveals several small nonhealing portions of the surgical wound, in the upper portion of his linear vertical right knee incision. Excisional debridement has been performed, and we are to continue the use of Aquacel topically on a daily basis. Patient has been instructed in the appropriate means of application. He is to return in 1 week for reassessment. The patient is a smoker, and has been counseled as to the adverse effects of smoking, including impaired wound healing. Optimization of the patient's nutrition has been advised. Because the patient is generally healthy and active, metabolic abnormalities are not suspected, and laboratory testing will not be performed initially. Laboratory testing will be considered, however, if healing does not progress as expected. Patient is to return in 1 week for reassessment. Total time: 29 minutes
[2021-01-04 08:40] VITALS: BP 190/80; PULSE 80; RESP 16; TEMP 36.6; BMI 20.9
--- NOTE | 2021-01-04 14:47 | HP.PCM_ITS ---
History of Present Illness Date of Service: 01/04/21 Chief Complaint: Nonhealing, dehiscent surgical wound?right knee History of Wound: This is a 55-year-old male who was in his normal state of health until September 10, 2020. At that time, patient underwent knee replacement surgery. Surgery was performed at the [facility] by Dr. Lowell Alarcon. Patient's recovery has been largely uneventful, but for delayed healing of his surgical incision, which is a linear vertical incision anterior to the right knee. Patient denies significant drainage. He is ambulatory. He denies significant swelling in his distal right lower extremity, but the right knee joint is persistently swollen. Patient is a smoker, and smokes approximately 1-1/2 packs/day. [facility], [facility] Medical History Hypertension Nonhealing surgical wound Osteoarthritis, knee Swelling of knee joint, right Tobacco abuse Tobacco abuse counseling Wound dehiscence, surgical Home Medications aspirin 81 mg PO DAILY 12/14/20 [History Last Taken Unknown] ferrous sulfate 28 mg PO DAILY 12/14/20 [History Last Taken Unknown] pkkgaiwkbpr-revgkimtt-jbk C-Mn [Glucosamine 1500 Complex] 1 cap PO DAILY 12/14/20 [History Last Taken Unknown] ibuprofen [Motrin] 200 - 400 mg PO Q6H PRN 12/14/20 [History Last Taken Unknown] lisinopril 10 mg PO DAILY 12/14/20 [History Last Taken Unknown] lutein 20 mg PO DAILY 12/14/20 [History Last Taken Unknown] multivitamin 1 cap PO DAILY 12/14/20 [History Last Taken Unknown] turmeric 1 PO DAILY 12/14/20 [History Last Taken Unknown] Allergy/AdvReac Type Severity Reaction Status Date / Time No Known Allergies Allergy Verified 12/14/20 09:52 Social History Smoking Status: Current every day smoker Vital Signs Vital Signs Vital Signs: 01/04/21 08:40 Temperature 97.8 F Temperature Source Temporal Pulse Rate 80 Respiratory Rate 16 Blood Pressure 190/80 H Blood Pressure Mean 116 Blood Pressure Source Monitor Blood Pressure Position Sitting Blood Pressure Location Left Arm Oxygen Delivery Method Room Air Weight Weight: 150 lb Body Mass Index (BMI) 20.9 Physical Exam Const alert, oriented x3, no apparent distress and well nourished General Appearance: cooperative and well developed Orientation / Consciousness: awake, oriented to person, oriented to place and oriented to time HEENT normocephalic and head/scalp atraumatic Head and Scalp: normal to inspection, normocephalic and atraumatic External Ear: external ears normal Eyes PERRL and EOMs intact bilaterally General Eye: normal appearance of both eyes Resp normal respiratory effort, normal air movement, no retractions and no use of accessory muscles Effort and Inspection: able to speak in complete sentences Extremity no calf tenderness General Extremity: Negative for clubbing or cyanosis Skin Wound Narrative: The open surgical wound/dehiscence appears improved. There are only 2 small openings near the superior pole of the longitudinal incision. These are quite small in size. Dimensions are documented elsewhere. There is no sign of infection or cellulitis. There is a small amount of bioburden. Neuro oriented x3 and CN's II-XII intact bilaterally Sensorium / Orientation: awake, alert, oriented to person, oriented to place and oriented to time Psych Appearance: grossly normal and appropriate Attitude: calm Activity / Motor Behavior: appropriate eye contact Speech: normal speech Mood & Affect: euthymic mood Thought Process: normal thought process Thought Content: normal thought content Attention / Concentration: attention grossly intact Debridement Note Debridement Note Wound debrided: Right anterior knee Laterality: Right Type of Debridement: Excisional debridement Anesthesia Used: 5% Lidocaine Gel Depth: Down to and including healthy tissue and in the subcutaneous layer Percentage of wound debrided: 100 Instrument Used: 3mm curette Tissue Removed: Bioburden Severity: Fat Layer Exposed Amount of bleeding with debridement: Mild Bleeding Controlled with: Compression and gauze Patient tolerated procedure: Patient tolerated procedure well Post-Debridement Measurements and Additional Note: Post-Debridement Measurements/Treatment SEMAJ - Nurse 1 - General Ulcer Assessment Start: 12/14/20 09:35 Freq: Status: Active Protocol: SHRUTI Activity Type Activity Date Activity User E-Sign Co-Sign Detail Recorded Client Recorded Date Recorded By Document 12/14/20 09:35 BMF [id number] 12/14/20 09:45 BMF Document 12/21/20 08:38 ML [id number] 12/21/20 08:45 ML Document 12/28/20 09:14 DL [id number] 11/16/21 09:21 DL Document 01/04/21 08:40 [facility] [id number] 01/04/21 08:47 BMF 12/14/20 12/21/20 12/28/20 09:35 08:38 09:14 WC - Today's Visit Information Type of service Initial Visit Follow-up Visit Follow-up Visit (Physician/CATTLE EXAMINER (Physician/CATTLE EXAMINER ) ) Arrival Mode Ambulatory Ambulatory Ambulatory Transfer Assistance None None Patient Identification Verified (Name & Yes Yes Yes ) Patient Requires Transmission-Based No No No Precautions Safety Precautions NA Height and Weight Height 5 ft 11 in Weight 150 lb Weight in Pounds 150.0 lbs Weight Measurement Method Estimated by Patient Body Mass Index (BMI) 20.9 20.9 20.9 BMI Classification Normal Normal Normal BSA - Jose 1.87 Vital Signs Temperature (97.8 F-99.1 F) 97.5 F L 97.3 F L 97.3 F L Temperature Source Temporal Temporal Temporal Pulse Rate (60-100) 80 82 82 Pulse Location Monitor Monitor Monitor Respiratory Rate (12-18) 16 16 18 Respiratory rate source Observation Observation Observation Oxygen Delivery Method Room Air Blood Pressure (90/60-120/80) 199/98 H 187/87 H 179/90 H Blood Pressure Mean 131 120 119 Source Monitor Monitor Monitor Position Sitting Sitting Blood Pressure Location Right Arm Right Arm Have you changed medications since your No No last visit? Any new allergies or adverse reactions No No Had a fall/change in ADL's that may No No increase risk of falls Signs or symptoms of abuse and/or No No neglect since last visit Have you been in the hospital since your No No last visit? Has dressing in place as prescribed Yes Yes Has compression in place as prescribed N/A Yes Has offloadiing in place as prescribed N/A Yes Experienced any changes in pain level or No No management History Since Last Visit- (Skip if this is Patient's initial visit) Left Footwear Regular Shoe Regular Shoe Right Footwear Regular Shoe Regular Shoe Pain Scale: 0-10 Numeric Is Patient Pain Free? Yes Yes Yes Lower Extremity Assessment/ Foot Assessment/ Toe Nail Assessment Left -Posterior Tibial Palpable Yes -Posterior Tibial Doppler Multiphasic -Dorsalis Pedis Palpable Yes -Dorsalis Pedis Doppler Multiphasic -Extremity Color Pale -Hair Growth on Legs Yes -Hair Growth on Toes No -Thick Yes -Discolored Yes -Deformed No -Improper Length & Hygeine No Right -Posterior Tibial Palpable No -Posterior Tibial Doppler Multiphasic -Dorsalis Pedis Palpable No -Dorsalis Pedis Doppler Multiphasic -Extremity Color Red -Hair Growth on Legs Yes -Hair Growth on Toes No -Thick No -Discolored No -Deformed No -Improper Length & Hygeine No Neuropathy Assessment Feet - Top Side and Bottom <Entered> (a) Communication Assessment Preferred language Tristanian Maintenance Team Leader Required No Able to Read Yes Able to Write Yes Communication Tools None Right Hearing Abillity Normal Left Hearing Abillity Normal Visual Assistive Devices Glasses Teaching Assessment Preferences Verbal,Written, Audio/Visual, Demonstration Barriers to Learning None Readiness To Learn Excellent Willingness to Engage in Self Management High Activies Readiness to Engage in Self Management High Activities Anxiety Level Calm Cooperation Cooperative Perception Coherent Interest in Health Problem Asks Questions Education Importance Acknowledges Need Does Patient Smoke tobacco or other No substances Smoking Status Current every day smoker Is Patient Diabetic No Functional Assessment Recent Decline in Ability to Perform Denies Any Declines Culture/Taoist/Microsoft Dynamics Ax Developer Cultural/Taoist Needs that may affect No Treatment Plan Teaching: Wound Center *Welcome to the Wound Center -Person Taught Patient -Teaching Method Discussion -Response to teaching Verbalize understanding Welcome to the Wound Care Center Tristanian 01/04/21 08:40 WC - Today's Visit Information Type of service Follow-up Visit (Physician/CATTLE EXAMINER ) Arrival Mode Ambulatory Transfer Assistance None Patient Identification Verified (Name & Yes ) Patient Requires Transmission-Based No Precautions Safety Precautions Height and Weight Height Weight Weight in Pounds Weight Measurement Method Body Mass Index (BMI) 20.9 BMI Classification Normal BSA - Jose Vital Signs Temperature (97.8 F-99.1 F) 97.8 F Temperature Source Temporal Pulse Rate (60-100) 80 Pulse Location Monitor Respiratory Rate (12-18) 16 Respiratory rate source Observation Oxygen Delivery Method Room Air Blood Pressure (90/60-120/80) 190/80 H Blood Pressure Mean 116 Source Monitor Position Sitting Blood Pressure Location Left Arm Have you changed medications since your No last visit? Any new allergies or adverse reactions No Had a fall/change in ADL's that may No increase risk of falls Signs or symptoms of abuse and/or No neglect since last visit Have you been in the hospital since your No last visit? Has dressing in place as prescribed Yes Has compression in place as prescribed No Has offloadiing in place as prescribed N/A Experienced any changes in pain level or No management History Since Last Visit- (Skip if this is Patient's initial visit) Left Footwear Regular Shoe Right Footwear Regular Shoe Pain Scale: 0-10 Numeric Is Patient Pain Free? Yes Lower Extremity Assessment/ Foot Assessment/ Toe Nail Assessment Left -Posterior Tibial Palpable -Posterior Tibial Doppler -Dorsalis Pedis Palpable -Dorsalis Pedis Doppler -Extremity Color -Hair Growth on Legs -Hair Growth on Toes -Thick -Discolored -Deformed -Improper Length & Hygeine Right -Posterior Tibial Palpable -Posterior Tibial Doppler -Dorsalis Pedis Palpable -Dorsalis Pedis Doppler -Extremity Color -Hair Growth on Legs -Hair Growth on Toes -Thick -Discolored -Deformed -Improper Length & Hygeine Neuropathy Assessment Feet - Top Side and Bottom Communication Assessment Preferred speech language pathologist prn Required Able to Read Able to Write Communication Tools Right Hearing Abillity Left Hearing Abillity Visual Assistive Devices Teaching Assessment Preferences Barriers to Learning Readiness To Learn Willingness to Engage in Self Management Activies Readiness to Engage in Self Management Activities Anxiety Level Cooperation Perception Interest in Health Problem Education Importance Does Patient Smoke tobacco or other substances Smoking Status Is Patient Diabetic Functional Assessment Recent Decline in Ability to Perform Culture/Taoist/Microsoft Dynamics Ax Developer Cultural/Taoist Needs that may affect Treatment Plan Teaching: Wound Center *Welcome to the Wound Center -Person Taught -Teaching Method -Response to teaching Welcome to the Wound Care Center (a) 1 - + WC - Nurse 1 - General Ulcer Measurement Start: 12/14/20 09:35 Freq: Status: Active Protocol: Activity Type Activity Date Activity User E-Sign Co-Sign Detail Recorded Client Recorded Date Recorded By Document 12/14/20 09:35 BMF [id number] 12/14/20 09:45 BMF Document 12/21/20 08:38 ML [id number] 12/21/20 08:45 ML Document 12/28/20 09:14 DL [id number] 12/28/20 09:21 DL Document 01/04/21 08:40 BMF [id number] 01/04/21 08:47 BMF 12/14/20 12/21/20 12/28/20 09:35 08:38 09:14 Wound Center Nurse 1 #1- R KNEE SURGICAL INCISION CLUSTER -Combined with other wound No -Current Size (cm) - Length 2.8 2 1.8 -Current Size (cm) - Width 0.7 0.1 0.3 -Current Size (cm) - Depth 0.2 0.1 0.1 -Total Square Cm 1.96 0.2 0.54 -Date of Last Picture (Recall this 12/14/20 field) -Photo Taken Yes No -Epithelialization None Present -Tunneling No -Undermining/Tunneling No -Circular Undermining No -Exudate Amt Medium Small None Present -Exudate Type Serosanguineous Serosanguineous -Wound Margin Distinct, Distinct, Thickened Outline Outline Attached Attached -Granulation Amt Small (1-33%) Small (1-33%) None Present (0 %) -Granulation Quality Red -Slough/Fibrin Yes No -Necrosis Amt Large (67-100%) None Present (0 Large (67-100%) %) -Necrotic Tissue Type Adherent Slough Adherent Slough -Structure Exposed N/A -Texture (Aviva-wound Skin Appearance) Assessed, Assessed Localized Edema Localized Edema ,Scarring ,Scarring -Moisture (Aviva-wound Skin Appearance) Assessed Assessed No Abnormality -Color (Aviva-wound Skin Appearance) Assessed, Assessed No Abnormality Erythema -Temperature (Aviva-wound Skin No Abnormality No Abnormality No Abnormality Appearance) (Pt Warm) (Pt Warm) (Pt Warm) -Tenderness on Palpation (Aviva-wound No No No Skin Appearance) -Ulcer Cleansing Rinsed/ Rinsed/ Soap and Water Irrigated with Irrigated with Saline Saline -Foul Odor after Cleansing No Yes, Due to Product Use -Anesthetic Used 4% Lidocaine 5% Lidocaine 4% Lidocaine Solution Gel Solution Lower Limb Edema Present Yes Right Calf (cm) 33.5 Right Ankle (cm) 22.4 Left Calf (cm) 33.5 Left Ankle (cm) 21 01/04/21 08:40 Wound Center Nurse 1 #1- R KNEE SURGICAL INCISION CLUSTER -Combined with other wound No -Current Size (cm) - Length 1.5 -Current Size (cm) - Width 0.3 -Current Size (cm) - Depth 0.2 -Total Square Cm 0.45 -Date of Last Picture (Recall this field) -Photo Taken No -Epithelialization None Present -Tunneling No -Undermining/Tunneling No -Circular Undermining No -Exudate Amt Small -Exudate Type Serosanguineous -Wound Margin Distinct, Outline Attached -Granulation Amt None Present (0 %) -Granulation Quality -Slough/Fibrin Yes -Necrosis Amt Large (67-100%) -Necrotic Tissue Type Adherent Slough -Structure Exposed -Texture (Aviva-wound Skin Appearance) Assessed, Localized Edema ,Scarring -Moisture (Aviva-wound Skin Appearance) Assessed -Color (Aviva-wound Skin Appearance) Assessed -Temperature (Aviva-wound Skin No Abnormality Appearance) (Pt Warm) -Tenderness on Palpation (Aviva-wound No Skin Appearance) -Ulcer Cleansing Soap and Water -Foul Odor after Cleansing No -Anesthetic Used 5% Lidocaine Gel Lower Limb Edema Present Right Calf (cm) Right Ankle (cm) Left Calf (cm) Left Ankle (cm) WC - Nurse 2 - General Ulcer CM Notes Start: 12/14/20 09:35 Freq: Status: Active Protocol: Activity Type Activity Date Activity User E-Sign Co-Sign Detail Recorded Client Recorded Date Recorded By Document 12/14/20 10:37 PL [id number] 12/14/20 10:39 PL Document 12/21/20 12:13 PL [id number] 12/21/20 12:14 PL Document 12/28/20 10:11 PL [id number] 12/28/20 10:12 PL Document 01/04/21 13:49 PL [id number] 01/04/21 13:49 PL 12/14/20 12/21/20 12/28/20 10:37 12:13 10:11 Wound Center Nurse 2 -Time 10:12 09:00 09:30 -Correct Patient Yes Yes Yes -Correct Side, Site, Position Yes Yes Yes -Correct Procedure Yes Yes Yes -Procedure Performed Yes Yes Yes -Type of Procedure Debridement Debridement Debridement -Clinical Debridement Subcutaneous Subcutaneous Subcutaneous -Tissue Removed Subcutaneous Subcutaneous Subcutaneous -Post Debridement (cm) - Length 2.8 2.0 0.5 -Post Debridement (cm) - Width 0.7 0.1 0.4 -Post Debridement (cm) - Depth 0.2 0.1 0.1 -Total Square (Post) (cm) 1.96 0.20 0.20 -Area of Debridement (cm) - Length 2.8 2.0 0.5 -Area of Debridement (cm) - Width 0.7 0.1 0.4 -Total Square (Area) (cm) 1.96 0.20 0.20 -Tunneling No No No -Undermining/Tunneling No No No -Circular Undermining No No No -Wound/Ulcer Outcome Not Healed Not Healed Not Healed -Ulcer Cleansing Rinsed/ Rinsed/ Rinsed/ Irrigated with Irrigated with Irrigated with Saline Saline Saline -Foul Odor after Cleansing No No No -Bioengineered Tissue No No No -Bleeding Controlled with Pressure Pressure Pressure -Treatment Response Procedure Procedure Procedure Tolerated Well Tolerated Well Tolerated Well -Debridement - Subq, 1st 20sq cm Yes Yes Yes 01/04/21 13:49 Wound Center Nurse 2 -Time 08:56 -Correct Patient Yes -Correct Side, Site, Position Yes -Correct Procedure Yes -Procedure Performed Yes -Type of Procedure Debridement -Clinical Debridement Subcutaneous -Tissue Removed Subcutaneous -Post Debridement (cm) - Length 1.5 -Post Debridement (cm) - Width 0.3 -Post Debridement (cm) - Depth 0.2 -Total Square (Post) (cm) 0.45 -Area of Debridement (cm) - Length 1.5 -Area of Debridement (cm) - Width 0.3 -Total Square (Area) (cm) 0.45 -Tunneling No -Undermining/Tunneling No -Circular Undermining No -Wound/Ulcer Outcome Not Healed -Ulcer Cleansing Rinsed/ Irrigated with Saline -Foul Odor after Cleansing No -Bioengineered Tissue No -Bleeding Controlled with Pressure -Treatment Response Procedure Tolerated Well -Debridement - Subq, 1st 20sq cm Yes WC - Nurse 3 - General Ulcer D/C NN Start: 12/14/20 09:35 Freq: Status: Active Protocol: Activity Type Activity Date Activity User E-Sign Co-Sign Detail Recorded Client Recorded Date Recorded By Document 12/21/20 09:12 [facility] [id number] 12/21/20 09:13 BMF Document 12/28/20 09:39 MW [id number] 12/28/20 09:39 MW Document 01/04/21 09:11 [place] [id number] 01/04/21 09:11 [place] 12/21/20 12/28/20 01/04/21 09:12 09:39 09:11 Wound Care Nurse 3 #1- R KNEE SURGICAL INCISION CLUSTER -Ulcer Cleansing Rinsed/ Rinsed/ Rinsed/ Irrigated with Irrigated with Irrigated with Saline Saline Saline -Foul Odor after Cleansing No No No -Negative Pressure Wound Therapy N/A N/A -Primary Dressing Applied Aquacel Extra Aquacel Extra Promogran -Primary Dressing Covered/Secured with Dry Gauze,Other Dry Gauze & Dry Gauze & Roll Gauze, Roll Gauze, Secured with Secured with Tape Tape -Other Covering secured w/ alem -Aquacel Extra 1 1 -Promogran 1 Right -Other pts own alem applied Treatment Response Procedure Procedure Tolerated Well Tolerated Well Pain Scale: 0-10 Numeric Is Patient Pain Free? Yes Yes Teaching: Wound Center Dressing Your Wound -Person Taught Patient -Teaching Method Discussion -Response to teaching Verbalize understanding WC - Visit Discharge Discharge Condition Stable Stable Ambulatory Status Ambulatory Ambulatory Transportation Private Auto Private Auto Accompanied by self Medication Reconcilliation completed & No provided to patient/care provider Clinical Summary of Care Provided Yes Assessment/Plan Assessment/Plan (1) Wound dehiscence, surgical: CODE(S): T81.31XA - Disruption of external operation (surgical) wound, not elsewhere classified, initial encounter (2) Nonhealing surgical wound: CODE(S): T81.89XA - Other complications of procedures, not elsewhere classified, initial encounter (3) Swelling of knee joint, right: CODE(S): M25.461 - Effusion, right knee (4) Tobacco abuse counseling: CODE(S): Z71.6 - Tobacco abuse counseling (5) Tobacco abuse: CODE(S): Z72.0 - Tobacco use (6) Hypertension: CODE(S): I10 - Essential (primary) hypertension (7) Osteoarthritis, knee: CODE(S): M17.10 - Unilateral primary osteoarthritis, unspecified knee PLAN: This is a 55-year-old male who underwent right total knee replacement on September 10, 2020. He has recovered relatively uneventfully, but for surgical wound which have failed to heal appropriately. Evaluation reveals several small nonhealing portions of the surgical wound, in the upper portion of his linear vertical right knee incision. Excisional debridement has been performed, and we are to transition to the use of Promogran which will be applied topically on a daily basis. Patient has been instructed in the appropriate means of application. He is to return in 2 weeks for reassessment. The patient is a smoker, and has been counseled as to the adverse effects of sm oking, including impaired wound healing. Optimization of the patient's nutrition has been advised. Because the patient is generally healthy and active, metabolic abnormalities are not suspected, and laboratory testing will not be performed initially. Laboratory testing will be considered, however, if healing does not progress as expected. Patient is to return in 2 weeks for reassessment. Total time: 28 minutes
== END 2021-01-11 23:59 ==
LOC: WC 08:30
PROVIDERS: PCP Family Medicine; Visit Provider Surgery
DX: T81.31XA Disruption of external operation (surgical) wound, not elsewhere classified, initial encounter (principal); T81.89XA Other complications of procedures, not elsewhere classified, initial encounter; M17.11 Unilateral primary osteoarthritis, right knee; M25.461 Effusion, right knee; Z71.6 Tobacco abuse counseling; I10 Essential (primary) hypertension; F17.210 Nicotine dependence, cigarettes, uncomplicated; Z79.1 Long term (current) use of non-steroidal anti-inflammatories (NSAID); Z79.82 Long term (current) use of aspirin; Z79.899 Other long term (current) drug therapy
CPT/HCPCS: 11042; 99213; G0463

== ENCOUNTER 2021-02-08 08:15 | Outpatient (RCR) | payer BC, SELFPAY ==
[2021-01-12 00:10] VITALS: BP 190/80; PULSE 80; RESP 16; TEMP 36.6; BMI 20.9
[2021-01-18 08:24] VITALS: BP 143/89; PULSE 79; TEMP 36.2; BMI 20.9
--- NOTE | 2021-01-18 10:10 | HP.PCM_ITS ---
History of Present Illness Date of Service: 01/18/21 Chief Complaint: Nonhealing, dehiscent surgical wound?right knee History of Wound: This is a 55-year-old male who was in his normal state of health until September 10, 2020. At that time, patient underwent knee replacement surgery. Surgery was performed at the [facility] by Dr. Lowell Alarcon. Patient's recovery has been largely uneventful, but for delayed healing of his surgical incision, which is a linear vertical incision anterior to the right knee. Patient denies significant drainage. He is ambulatory. He denies significant swelling in his distal right lower extremity, but the right knee joint is persistently swollen. Patient is a smoker, and smokes approximately 1-1/2 packs/day. [facility] Medical History Hypertension Nonhealing surgical wound Osteoarthritis, knee Swelling of knee joint, right Tobacco abuse Tobacco abuse counseling Wound dehiscence, surgical Home Medications aspirin 81 mg PO DAILY 12/14/20 [History Last Taken Unknown] ferrous sulfate 28 mg PO DAILY 12/14/20 [History Last Taken Unknown] [id number]-xkc C-Mn [Glucosamine 1500 Complex] 1 cap PO DAILY 12/14/20 [History Last Taken Unknown] ibuprofen [Motrin] 200 - 400 mg PO Q6H PRN 12/14/20 [History Last Taken Unknown] lisinopril 10 mg PO DAILY 12/14/20 [History Last Taken Unknown] lutein 20 mg PO DAILY 12/14/20 [History Last Taken Unknown] multivitamin 1 cap PO DAILY 12/14/20 [History Last Taken Unknown] turmeric 1 PO DAILY 12/14/20 [History Last Taken Unknown] Allergy/AdvReac Type Severity Reaction Status Date / Time No Known Allergies Allergy Verified 12/14/20 09:52 Social History Smoking Status: Current every day smoker Vital Signs Vital Signs Vital Signs: 01/18/21 08:24 Temperature 97.2 F L Temperature Source Temporal Pulse Rate 79 Blood Pressure 143/89 H Blood Pressure Mean 107 Blood Pressure Source Monitor Blood Pressure Position Sitting Blood Pressure Location Left Arm Weight Weight: 150 lb Body Mass Index (BMI) 20.9 Physical Exam Const alert, oriented x3, no apparent distress and well nourished General Appearance: cooperative and well developed Orientation / Consciousness: awake, oriented to person, oriented to place and oriented to time HEENT normocephalic and head/scalp atraumatic Head and Scalp: normal to inspection, normocephalic and atraumatic External Ear: external ears normal Eyes PERRL and EOMs intact bilaterally General Eye: normal appearance of both eyes Resp normal respiratory effort, normal air movement, no retractions and no use of accessory muscles Effort and Inspection: able to speak in complete sentences Extremity no calf tenderness General Extremity: Negative for clubbing or cyanosis Skin Wound Narrative: There appears to be some progress in the healing of the dehiscent surgical wound on the patient's right anterior knee. The dehiscent portion of the longitudinal incision appears to be smaller in size. There is evidence of epithelialization. Dimensions are documented elsewhere. There is no sign of infection or cellulitis. There is a small amount of bioburden. Neuro oriented x3, CN's II-XII intact bilaterally and moves all extremities Sensorium / Orientation: awake, alert, oriented to person, oriented to place and oriented to time Psych Appearance: grossly normal and appropriate Attitude: calm Activity / Motor Behavior: appropriate eye contact Speech: normal speech Mood & Affect: euthymic mood Thought Process: normal thought process Thought Content: normal thought content Attention / Concentration: attention grossly intact Debridement Note Debridement Note Wound debrided: Right anterior knee, dehiscent surgical incision Laterality: Right Type of Debridement: Excisional debridement Anesthesia Used: 5% Lidocaine Gel Depth: Down to and including healthy tissue and in the subcutaneous layer Percentage of wound debrided: 100 Instrument Used: 3mm curette Tissue Removed: Bioburden Severity: Fat Layer Exposed Amount of bleeding with debridement: Mild Bleeding Controlled with: Compression and gauze Patient tolerated procedure: Patient tolerated procedure well Post-Debridement Measurements and Additional Note: Post-Debridement Measurements/Treatment SEMAJ - Nurse 1 - General Ulcer Assessment Start: 01/18/21 08:22 Freq: Status: Active Protocol: SHRUTI Activity Type Activity Date Activity User E-Sign Co-Sign Detail Recorded Client Recorded Date Recorded By Document 01/18/21 08:24 JOSE [id number] 01/18/21 08:26 JOSE 01/18/21 08:24 - Today's Visit Information Type of service Follow-up Visit (Physician/SALES AND MERCHANDISING REPRESENTATIVE ) Arrival Mode Ambulatory Patient Identification Verified (Name & Yes ) Height and Weight Body Mass Index (BMI) 20.9 BMI Classification Normal Vital Signs Temperature (97.8 F-99.1 F) 97.2 F L Temperature Source Temporal Pulse Rate (60-100) 79 Pulse Location Monitor Blood Pressure (90/60-120/80) 143/89 H Blood Pressure Mean 107 Source Monitor Position Sitting Blood Pressure Location Left Arm History Since Last Visit- (Skip if this is Patient's initial visit) Have you changed medications since your No last visit? Any new allergies or adverse reactions No Had a fall/change in ADL's that may No increase risk of falls Signs or symptoms of abuse and/or No neglect since last visit Have you been in the hospital since your No last visit? Has dressing in place as prescribed Yes Has compression in place as prescribed N/A Has offloadiing in place as prescribed N/A Experienced any changes in pain level or No management Left Footwear Regular Shoe Right Footwear Regular Shoe Pain Scale: 0-10 Numeric Is Patient Pain Free? Yes WC - Nurse 1 - General Ulcer Measurement Start: 01/18/21 08:22 Freq: Status: Active Protocol: Activity Type Activity Date Activity User E-Sign Co-Sign Detail Recorded Client Recorded Date Recorded By Document 01/18/21 08:24 JOSE [id number] 01/18/21 08:26 JOSE 01/18/21 08:24 Wound Center Nurse 1 #1- R KNEE SURGICAL INCISION CLUSTER -Current Size (cm) - Length 0.4 -Current Size (cm) - Width 0.2 -Current Size (cm) - Depth 0.1 -Total Square Cm 0.08 -Exudate Amt None Present -Wound Margin Distinct, Outline Attached -Granulation Amt Small (1-33%) -Granulation Quality [place] -Necrosis Amt None Present (0 %) -Texture (Aviva-wound Skin Appearance) Assessed, Scarring -Moisture (Aviva-wound Skin Appearance) Assessed,Dry/ Scaly -Color (Aviva-wound Skin Appearance) No Abnormality, Assessed -Temperature (Aviva-wound Skin No Abnormality Appearance) (Pt Warm) -Tenderness on Palpation (Aviva-wound No Skin Appearance) -Ulcer Cleansing Wound Cleanser -Foul Odor after Cleansing No -Anesthetic Used 5% Lidocaine Gel WC - Nurse 2 - General Ulcer CM Notes Start: 12/07/21 08:22 Freq: Status: Active Protocol: Activity Type Activity Date Activity User E-Sign Co-Sign Detail Recorded Client Recorded Date Recorded By Document 01/18/21 08:50 PL [id number] 01/18/21 08:51 PL 01/18/21 08:50 Wound Center Nurse 2 -Time 08:36 -Correct Patient Yes -Correct Side, Site, Position Yes -Correct Procedure Yes -Procedure Performed Yes -Type of Procedure Debridement -Clinical Debridement Subcutaneous -Tissue Removed Subcutaneous -Post Debridement (cm) - Length 0.4 -Post Debridement (cm) - Width 0.2 -Post Debridement (cm) - Depth 0.1 -Total Square (Post) (cm) 0.08 -Area of Debridement (cm) - Length 0.4 -Area of Debridement (cm) - Width 0.2 -Total Square (Area) (cm) 0.08 -Tunneling No -Undermining/Tunneling No -Circular Undermining No -Wound/Ulcer Outcome Not Healed -Ulcer Cleansing Rinsed/ Irrigated with Saline -Foul Odor after Cleansing No -Bioengineered Tissue No -Bleeding Controlled with Pressure -Treatment Response Procedure Tolerated Well -Debridement - Subq, 1st 20sq cm Yes WC - Nurse 3 - General Ulcer D/C NN Start: 01/18/21 08:22 Freq: Status: Active Protocol: Activity Type Activity Date Activity User E-Sign Co-Sign Detail Recorded Client Recorded Date Recorded By Document 01/18/21 08:41 [facility] [id number] 01/18/21 08:42 [facility] 01/18/21 08:41 Wound Care Nurse 3 -Ulcer Cleansing Rinsed/ Irrigated with Saline -Foul Odor after Cleansing No -Primary Dressing Applied Promogran -Primary Dressing Covered/Secured with Dry Gauze & Roll Gauze, Secured with Tape -Other Covering 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 Yes WC - Visit Discharge Discharge Condition Stable Ambulatory Status Ambulatory Transportation Private Auto Assessment/Plan Assessment/Plan (1) Wound dehiscence, surgical: CODE(S): T81.31XA - Disruption of external operation (surgical) wound, not elsewhere classified, initial encounter (2) Nonhealing surgical wound: CODE(S): T81.89XA - Other complications of procedures, not elsewhere classified, initial encounter (3) Osteoarthritis, knee: CODE(S): M17.10 - Unilateral primary osteoarthritis, unspecified knee (4) Tobacco abuse counseling: CODE(S): Z71.6 - Tobacco abuse counseling (5) Tobacco abuse: CODE(S): Z72.0 - Tobacco use (6) Hypertension: CODE(S): I10 - Essential (primary) hypertension (7) Swelling of knee joint, right: CODE(S): M25.461 - Effusion, right knee PLAN: This is a 55-year-old male who underwent right total knee replacement on September 10, 2020. He has recovered relatively uneventfully, but for his surgical wound which has failed to heal appropriately. Evaluation reveals several small nonhealing portions of the surgical wound, in his linear vertical right knee incision. Excisional debridement has been performed, and we are to continue the use of Promogran which will be applied topically on a daily basis. The patient has been instructed in the appropriate means of application. He is to return in 2 weeks for reassessment. The patient is a smoker, and has been counseled as to the adverse effects of smoking, including impaired wound healing. Optimization of the patient's nutrition has been advised. Because the patient is generally healthy and active, metabolic abnormalities are not suspected, and laboratory testing will not be performed initially. Laboratory testing will be considered, however, if healing does not progress as expected. Patient is to return in 2 weeks for reassessment. Total time: 29 minutes
[2021-02-08 08:19] VITALS: BP 189/69; PULSE 76; TEMP 36.6; BMI 20.9
--- NOTE | 2021-02-08 08:39 | HP.PCM_ITS ---
History of Present Illness Date of Service: 02/08/21 Chief Complaint: Nonhealing, dehiscent surgical wound?right knee History of Wound: This is a 55-year-old male who was in his normal state of health until September 10, 2020. At that time, patient underwent knee replacement surgery. Surgery was performed at the [facility] by Dr. Lowell Alarcon. Patient's recovery has been largely uneventful, but for delayed healing of his surgical incision, which is a linear vertical incision anterior to the right knee. Patient denies significant drainage. He is ambulatory. He denies significant swelling in his distal right lower extremity, but the right knee joint is persistently swollen. Patient is a smoker, and smokes approximately 1-1/2 packs/day. [facility] Medical History Hypertension Nonhealing surgical wound Osteoarthritis, knee Swelling of knee joint, right Tobacco abuse Tobacco abuse counseling Wound dehiscence, surgical Home Medications aspirin 81 mg PO DAILY 12/14/20 [History Last Taken Unknown] ferrous sulfate 28 mg PO DAILY 12/14/20 [History Last Taken Unknown] qjekhsjwxrl-rnlupafxr-rsg C-Mn [Glucosamine 1500 Complex] 1 cap PO DAILY 12/14/20 [History Last Taken Unknown] ibuprofen [Motrin] 200 - 400 mg PO Q6H PRN 12/14/20 [History Last Taken Unknown] lisinopril 10 mg PO DAILY 12/14/20 [History Last Taken Unknown] lutein 20 mg PO DAILY 12/14/20 [History Last Taken Unknown] multivitamin 1 cap PO DAILY 12/14/20 [History Last Taken Unknown] turmeric 1 PO DAILY 12/14/20 [History Last Taken Unknown] Allergy/AdvReac Type Severity Reaction Status Date / Time No Known Allergies Allergy Verified 12/14/20 09:52 Social History Smoking Status: Current every day smoker Vital Signs Vital Signs Vital Signs: 02/08/21 08:19 Temperature 97.8 F Temperature Source Temporal Pulse Rate 76 Blood Pressure 189/69 H Blood Pressure Mean 109 Blood Pressure Source Monitor Blood Pressure Position Sitting Blood Pressure Location Left Arm Weight Weight: 150 lb Body Mass Index (BMI) 20.9 Physical Exam Const alert, oriented x3, no apparent distress, average body habitus and well nouris hed General Appearance: cooperative, comfortable, well kempt and well developed Orientation / Consciousness: awake, oriented to person, oriented to place and oriented to time HEENT normocephalic and head/scalp atraumatic Head and Scalp: normal to inspection, normocephalic and atraumatic External Ear: external ears normal Eyes PERRL and EOMs intact bilaterally General Eye: normal appearance of both eyes Resp normal respiratory effort, normal air movement, no retractions and no use of accessory muscles Effort and Inspection: able to speak in complete sentences Extremity no calf tenderness General Extremity: Negative for clubbing or cyanosis Skin Wound Narrative: The dehiscent right knee surgical incision now appears to be totally healed and epithelialized. There is no sign of infection or cellulitis. The right knee remains slightly swollen as result of recent knee replacement surgery. Neuro oriented x3, CN's II-XII intact bilaterally, moves all extremities and no focal motor deficits Sensorium / Orientation: awake, alert, oriented to person and oriented to place Psych Appearance: grossly normal and appropriate Attitude: calm Activity / Motor Behavior: appropriate eye contact Speech: normal speech Mood & Affect: euthymic mood Thought Process: normal thought process Thought Content: normal thought content Attention / Concentration: attention grossly intact Debridement Note Debridement Note No debridement was completed: No debridement was completed today Post-Debridement Measurements and Additional Note: Post-Debridement Measurements/Treatment - Nurse 1 - General Ulcer Assessment Start: 01/18/21 08:22 Freq: Status: Active Protocol: .SHANTANU Activity Type Activity Date Activity User E-Sign Co-Sign Detail Recorded Client Recorded Date Recorded By Document 01/18/21 08:24 [id number] 01/18/21 08:26 Document 02/08/21 08:19 [facility] [id number] 02/08/21 08:24 [facility] 01/18/21 02/08/21 08:24 08:19 - Today's Visit Information Type of service Follow-up Visit Follow-up Visit (Physician/RETORT SETTER (Physician/RETORT SETTER ) ) Arrival Mode Ambulatory Ambulatory Patient Identification Verified (Name & Yes Yes ) Height and Weight Body Mass Index (BMI) 20.9 20.9 BMI Classification Normal Normal Vital Signs Temperature (97.8 F-99.1 F) 97.2 F L 97.8 F Temperature Source Temporal Temporal Pulse Rate (60-100) 79 76 Pulse Location Monitor Monitor Blood Pressure (90/60-120/80) 143/89 H 189/69 H Blood Pressure Mean 107 109 Source Monitor Monitor Position Sitting Sitting Blood Pressure Location Left Arm Left Arm History Since Last Visit- (Skip if this is Patient's initial visit) Have you changed medications since your No No last visit? Any new allergies or adverse reactions No No Had a fall/change in ADL's that may No No increase risk of falls Signs or symptoms of abuse and/or No No neglect since last visit Have you been in the hospital since your No No last visit? Has dressing in place as prescribed Yes Yes Has compression in place as prescribed N/A N/A Has offloadiing in place as prescribed N/A N/A Experienced any changes in pain level or No No management Left Footwear Regular Shoe Regular Shoe Right Footwear Regular Shoe Regular Shoe Pain Scale: 0-10 Numeric Is Patient Pain Free? Yes Yes WC - Nurse 1 - General Ulcer Measurement Start: 01/18/21 08:22 Freq: Status: Active Protocol: Activity Type Activity Date Activity User E-Sign Co-Sign Detail Recorded Client Recorded Date Recorded By Document 01/18/21 08:24 [id number] 01/18/21 08:26 KR Document 02/08/21 08:19 [facility] [id number] 02/08/21 08:24 BM 01/18/21 02/08/21 08:24 08:19 Wound Center Nurse 1 #1- R KNEE SURGICAL INCISION CLUSTER -Current Size (cm) - Length 0.4 0.1 -Current Size (cm) - Width 0.2 0.1 -Current Size (cm) - Depth 0.1 0.1 -Total Square Cm 0.08 0.01 -Exudate Amt None Present None Present -Wound Margin Distinct, Distinct, Outline Outline Attached Attached -Granulation Amt Small (1-33%) None Present (0 %) -Granulation Quality [place] -Necrosis Amt None Present (0 None Present (0 %) %) -Texture (Aviva-wound Skin Appearance) Assessed, Assessed, Scarring Scarring -Moisture (Aviva-wound Skin Appearance) Assessed,Dry/ Assessed,Dry/ Scaly Scaly -Color (Aviva-wound Skin Appearance) No Abnormality, No Abnormality, Assessed Assessed -Temperature (Aviva-wound Skin No Abnormality No Abnormality Appearance) (Pt Warm) (Pt Warm) -Tenderness on Palpation (Aviva-wound No No Skin Appearance) -Ulcer Cleansing Wound Cleanser Rinsed/ Irrigated with Saline -Foul Odor after Cleansing No No -Anesthetic Used 5% Lidocaine 5% Lidocaine Gel Gel WC - Nurse 2 - General Ulcer CM Notes Start: 01/18/21 08:22 Freq: Status: Active Protocol: Activity Type Activity Date Activity User E-Sign Co-Sign Detail Recorded Client Recorded Date Recorded By Document 01/18/21 08:50 PL [id number] 01/18/21 08:51 PL 01/18/21 08:50 Wound Center Nurse 2 -Time 08:36 -Correct Patient Yes -Correct Side, Site, Position Yes -Correct Procedure Yes -Procedure Performed Yes -Type of Procedure Debridement -Clinical Debridement Subcutaneous -Tissue Removed Subcutaneous -Post Debridement (cm) - Length 0.4 -Post Debridement (cm) - Width 0.2 -Post Debridement (cm) - Depth 0.1 -Total Square (Post) (cm) 0.08 -Area of Debridement (cm) - Length 0.4 -Area of Debridement (cm) - Width 0.2 -Total Square (Area) (cm) 0.08 -Tunneling No -Undermining/Tunneling No -Circular Undermining No -Wound/Ulcer Outcome Not Healed -Ulcer Cleansing Rinsed/ Irrigated with Saline -Foul Odor after Cleansing No -Bioengineered Tissue No -Bleeding Controlled with Pressure -Treatment Response Procedure Tolerated Well -Debridement - Subq, 1st 20sq cm Yes WC - Nurse 3 - General Ulcer D/C NN Start: 01/18/21 08:22 Freq: Status: Active Protocol: Activity Type Activity Date Activity User E-Sign Co-Sign Detail Recorded Client Recorded Date Recorded By Document 01/18/21 08:41 BM [id number] 01/18/21 08:42 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 Yes WC - Visit Discharge Discharge Condition Stable Ambulatory Status Ambulatory Transportation Private Auto Assessment/Plan Assessment/Plan (1) Wound dehiscence, surgical: CODE(S): T81.31XA - Disruption of external operation (surgical) wound, not elsewhere classified, initial encounter (2) Nonhealing surgical wound: CODE(S): T81.89XA - Other complications of procedures, not elsewhere classified, initial encounter (3) Tobacco abuse counseling: CODE(S): Z71.6 - Tobacco abuse counseling (4) Tobacco abuse: CODE(S): Z72.0 - Tobacco use (5) Hypertension: CODE(S): I10 - Essential (primary) hypertension (6) Osteoarthritis, knee: CODE(S): M17.10 - Unilateral primary osteoarthritis, unspecified knee (7) Swelling of knee joint, right: CODE(S): M25.461 - Effusion, right knee PLAN: This is a 55-year-old male who underwent right total knee replacement on September 10, 2020. He has recovered relatively uneventfully, but for his surgical wound which has failed to heal appropriately. As of today's visit, the patient's right knee surgical dehiscent wound is completely healed and epithelialized. He is to be discharged, and will follow-up henceforth on an as- needed basis. Total time: 26 minutes
== END 2021-02-08 09:53 | disposition home or self-care (01) ==
LOC: WC 08:15
PROVIDERS: PCP Family Medicine; Visit Provider Surgery
DX: T81.31XA Disruption of external operation (surgical) wound, not elsewhere classified, initial encounter (principal); T81.89XA Other complications of procedures, not elsewhere classified, initial encounter; M17.11 Unilateral primary osteoarthritis, right knee; Z71.6 Tobacco abuse counseling; I10 Essential (primary) hypertension; M25.461 Effusion, right knee; F17.210 Nicotine dependence, cigarettes, uncomplicated; Z79.1 Long term (current) use of non-steroidal anti-inflammatories (NSAID); Z79.82 Long term (current) use of aspirin
CPT/HCPCS: 11042; 99213; G0463

== ENCOUNTER 2021-02-25 07:42 | Outpatient (CLI) | payer BC, SELFPAY ==
--- NOTE | 2021-02-25 07:49 | CDU_ITS ---
Reason For Study: Amaurosis Fugax Rt. Velocities/BP Lt. Velocities/BP Prox CCA 94.3/14.7 cm/sec. Prox CCA 125.7/22.6 cm/sec. Mid CCA 86.5/17.3 cm/sec. Mid CCA 112.6/24.8 cm/sec. Dist CCA 83.9/18.6 cm/sec. Dist CCA 81.9/18.2 cm/sec. Prox ICA 231.3/60.4 cm/sec. Prox ICA 68.1/13.3 cm/sec. Mid ICA 208/42.2 cm/sec. Mid ICA 130.2/35.3 cm/sec. Dist ICA 151/24.1 cm/sec. Dist ICA 137.5/38.9 cm/sec. Rt. ICA/CCA = 2.67. Lt. ICA/CCA = 1.22. Prox ECA 135.7/18.8 cm/sec. Prox ECA 84.6/11.5 cm/sec. Rt. Vert. 38.6/9 cm/sec. Lt. Vert. 52/11.3 cm/sec. Right Extracranial There is homogeneous, smooth atherosclerotic plaque noted in the right common carotid artery. There is heterogeneous, irregular atherosclerotic plaque noted in the right internal carotid artery. The atherosclerotic plaque causes acoustic shadowing. There is homogeneous, smooth atherosclerotic plaque noted in the right external carotid artery. Antegrade flow is noted in the right vertebral artery. Left Extracranial There is heterogeneous, smooth atherosclerotic plaque noted in the left common carotid artery. There is heterogeneous, irregular atherosclerotic plaque noted in the left internal carotid artery. The atherosclerotic plaque causes acoustic shadowing. There is heterogeneous, irregular atherosclerotic plaque noted in the left external carotid artery. Antegrade flow is noted in the left vertebral artery. Procedure Carotid Duplex [id number]. This is a Carotid Duplex examination using B-mode, color flow and specral Doppler. Exam performed in department. VL/Carotid Duplex Ultrasound Interpretation Summary Irregular calcific plaque with significant shadowing at the proximal right inte rnal carotid artery and greater than 70% stenosis of the right internal carotid artery Less than 50% stenosis right external carotid artery Irregular calcific plaque with shadowing at the proximal left internal carotid artery with 50 to 69% stenosis of the left internal carotid artery Less than 50% stenosis left external carotid artery Patent antegrade vertebral arteries bilaterally Ordering Physician: Dangelo Flores Referring Physician: Denton Gardner MD Performed By: Katelyn Eric RVT
== END 2021-02-25 23:59 | disposition short-term general hospital (02) ==
PROVIDERS: PCP Family Medicine; Referring Provider Ophthalmology; Visit Provider Ophthalmology
DX: G45.3 Amaurosis fugax (principal)
CPT/HCPCS: 93880

== ENCOUNTER 2021-03-18 07:34 | Outpatient (CLI) | payer BC, SELFPAY ==
--- NOTE | 2021-03-18 07:49 | CT_ITS ---
STUDY: CTA NECK WITH CONTRAST REASON FOR EXAM: Male, 55 years old. Bilateral carotid stenosis. Visual changes more prominent on the right side. RADIATION DOSAGE (If Supplied By Facility): CTDIvol = ( 22.40 ) mGy, DLP = ( 550.89 ) mGycm TECHNIQUE: CT angiography with multi-detector data acquisition was performed from the aortic arch to the skull base following intravenous administration of IV 75mL Isovue-370. MIP images were reconstructed from the axial data set. Post-processing of the angiographic images was performed, with multiplanar reformation and 3D reconstruction. Individualized dose optimization techniques were used for this CT. COMPARISON: None. FINDINGS: AORTIC ARCH: There is atherosclerotic calcific plaque formation of the aortic arch and great vessels arising from the aortic arch, without a hemodynamically significant stenosis. There is a bovine origin of the great vessels with a common origin of the brachiocephalic and left common carotid artery. Normal origin of the left subclavian artery. Atherosclerotic plaque formation at the origin of the left common carotid artery. Nonstenotic atherosclerotic plaque formation at the origin of the right brachiocephalic artery and right subclavian artery. RIGHT CAROTID ARTERIES: Normal right common carotid artery (CCA). Normal right common carotid bulb. There is extensive atherosclerotic plaque formation of the origin of the right internal carotid artery with an estimated stenosis of greater than 70%. Normal visualized cervical portion of the right internal carotid artery. Normal origin of the right external carotid artery (ECA). LEFT CAROTID ARTERIES: Normal left common carotid artery (CCA). Normal left common carotid bulb. There is extensive atherosclerotic plaque formation of the origin of the left internal carotid artery with an estimated stenosis of greater than 70%. Normal visualized cervical portion of the left internal carotid artery. Normal origin of the left external carotid artery (ECA). VERTEBRAL ARTERIES: Normal bilateral vertebral arteries. CT/CTA Neck W/WO Contrast IMPRESSION: High-grade stenosis at the origins of both the right and left internal carotid arteries caused by densely calcified plaques. Electronically Signed: Meng Miranda MD at 9:09 EST ,
[2021-03-18 08:11] LABS: CREATININE FINGERSTICK 0.8 mg/dL (0.70-1.30); EGFR FINGERSTICK > 60.0000 mL/min (>60)
[2021-03-18 10:10] LABS: Cholesterol 165 mg/dL (200); High Density Lipoprotein 92 mg/dL; Triglycerides 33 mg/dL; Very Low Density Lipoprotein 7 mg/dL (5-40)
== END 2021-03-18 23:59 | disposition short-term general hospital (02) ==
PROVIDERS: PCP Family Medicine; Referring Provider Surgery; Visit Provider Surgery
DX: I65.23 Occlusion and stenosis of bilateral carotid arteries (principal)
CPT/HCPCS: 36415; 70498; 80061; Q9967; A4216

== ENCOUNTER 2021-04-13 05:26 | Inpatient (IN) | payer BC, SELFPAY ==
--- NOTE | 2021-04-08 09:06 | EKG12_ITS ---
Test Reason : PRE OP Blood Pressure : / mmHG Vent. Rate : 075 BPM Atrial Rate : 075 BPM P-R Int : 124 ms QRS Dur : 092 ms QT Int : 378 ms P-R-T Axes : 065 080 085 degrees QTc Int : 422 ms Normal sinus rhythm Consider voltage criteria for LVH Confirmed by CAROLINA NELSON, GEETHA ([id number]), pictures editor FATOU GONZALES ([id number]) on 04/11/2021 11:05:16 AM Referred By: NOEMI Confirmed By:GEETHA FIGUEROA MD
[2021-04-08 10:30] LABS: Hematocrit 32.3 % (40-54); Hemoglobin 11.2 g/dL (13.0-16.5); Mean Corp Hgb Conc 34.7 g/dL (32-36); Mean Corpuscular Hgb 34.4 pg (27.0-32.0); Mean Corpuscular Volume 99.1 fL (80-94); Mean Platelet Vol. 8.5 fl (6.2-12.0); Platelet Count 275 K/mm3 (150-450); RBC Distribution Width CV 12.3 % (11.6-14.6); RBC Distribution Width SD 44.6 fl (35.1-43.9); Red Blood Count 3.26 M/mm3 (4.6-6.2); White Blood Count 6.6 K/mm3 (4.4-11.0)
[2021-04-08 10:41] LABS: International Normalized Ratio 0.9; Prothrombin Time (Protime)PT. 11.9 SECONDS (11.7-14.9)
[2021-04-08 10:42] LABS: Partial Thromboplast Time 30.1 Seconds (24.1-36.2)
[2021-04-08 10:55] LABS: Anion Gap 5 (5-15); BUN 12 mg/dL (7-18); BUN/Creat Ratio 15.2 RATIO (10-20); Calcium,Total 9.4 mg/dL (8.5-10.1); Chloride 99 mmol/L (98-107); Creatinine, Serum 0.79 mg/dL (0.70-1.30); EST Glomerular Filtration Rate 108 mL/min (>60); Est Glom Filt Rate - Afr Amer 131 mL/min (>60); Glucose 101 mg/dL (74-106); Potassium 3.8 mmol/L (3.5-5.1); Sodium Level 130 mmol/L (136-145)
[2021-04-08 11:02] LABS: AST(SGOT) 20 U/L (15-37); Alanine Aminotransfer ALT/SGPT 19 U/L (16-61); Albumin, Serum 3.9 g/dL (3.2-5.0); Alkaline Phosphatase 92 U/L (45-117); Bilirubin, Direct 0.15 mg/dL (0.00-0.30); Globulin 3.7 g/dL (2.2-4.2); Protein, Total 7.6 g/dL (6.4-8.2)
[2021-04-11 10:12] LABS: Thyroid Stim Hormone (TSH) 0.92 uIU/mL (0.358-3.74)
[2021-04-13] VITALS (30 sets, daily range): BP systolic 146–184; BP diastolic 75–97; PULSE 75–108; RESP 14–18; TEMP 36.4–37.4; O2SAT 96–100; BMI 21.8
[2021-04-13] MEDS: 0.9% Normal Saline 1,000 ML 15 ML IV (05:50)
--- NOTE | 2021-04-13 05:53 | PCM.HP.BLA ---
History and Physical Date of Admission: 04/13/21 Intake Intake Visit Reasons: DISCUSS CTA RESULTS 03/18 Chief Complaint: Discuss CTA Results 03/18 [place] Former Required: No Is patient in pain?: No Allergies No Known Allergies Allergy (Verified 03/24/21 09:53) Medications aspirin 81 mg PO DAILY 12/14/20 [History Confirmed 03/24/21] wkigewhrzea-nidgdjwri-mxh C-Mn [Glucosamine 1500 Complex] 1 cap PO DAILY 12/14/20 [History Confirmed 03/24/21] ibuprofen [Motrin] 200 - 400 mg PO Q6H PRN 12/14/20 [History Confirmed 03/24/21] lisinopril 10 mg PO DAILY 12/14/20 [History Confirmed 03/24/21] lutein 20 mg PO DAILY 12/14/20 [History Confirmed 03/24/21] multivitamin 1 cap PO DAILY 12/14/20 [History Confirmed 03/24/21] ferrous sulfate 27 mg iron tablet 65 mg PO DAILY tab 03/14/21 [History Confirmed 03/24/21] turmeric root extract 500 mg capsule 500 mg PO DAILY 03/14/21 [History Confirmed 03/24/21] varenicline 1 mg tablet 1 mg PO BID 03/24/21 [History Confirmed 03/24/21] PFSH Medical History Carotid stenosis, bilateral Carotid stenosis, bilateral Hypertension Nonhealing surgical wound Osteoarthritis, knee Swelling of knee joint, right Tobacco abuse Tobacco abuse counseling Wound dehiscence, surgical Surgical History History of colonoscopy History of hernia surgery History of right knee joint replacement Family History Father Myocardial infarction Heart disease Mother Diabetes Hypertension CVA (cerebral vascular accident) Brother Colon cancer Hypertension Social History (Updated 03/24/21 @ 09:52 by Zelda Sunday) Smoking Status: Current every day smoker tobacco type: cigarettes how long ago did patient quit smoking: pt is currently trying to quit smoking, is on Chantix alcohol intake: current details: 6-8 beers per day substance use type: does not use HPI HPI HPI: EMILIE MCDONALD, is a 55 M who presents to the office today for ongoing surgical consultation regarding extracranial carotid artery occlusive disease. Laboratory as of March 18, 2021 demonstrates a triglyceride level of 33 and a cholesterol level of 165 and an LDL of 66 with a VLDL of 7 and a HDL cholesterol of 92 He will again be seeing Dr. Dangelo Flores in the near future. He does not typically describe additional vision problems but does continue to believe that the issues are bilateral. I have personally reviewed the patient's carotid duplex examination and the imaging on his CTA of the neck. I concur that he has high-grade stenosis of the right internal carotid and it is a long narrow stenosis over approximately 2 to 2-1/2 cm. On the left unfortunately there is tortuosity and calcific plaque making it very difficult to determine the actual degree of stenosis within the proximal left internal carotid artery. March 18, 2021 STUDY: CTA NECK WITH CONTRAST REASON FOR EXAM: Male, 55 years old. Bilateral carotid stenosis. Visual changes more prominent on the right side. RADIATION DOSAGE (If Supplied By Facility): CTDIvol = ( 22.40 ) mGy, DLP = ( 550.89 ) mGycm TECHNIQUE: CT angiography with multi-detector data acquisition was performed from the aortic arch to the skull base following intravenous administration of IV 75mL Isovue-370. MIP images were reconstructed from the axial data set. Post-processing of the angiographic images was performed, with multiplanar reformation and 3D reconstruction. Individualized dose optimization techniques were used for this CT. COMPARISON: None. FINDINGS: AORTIC ARCH: There is atherosclerotic calcific plaque formation of the aortic arch and great vessels arising from the aortic arch, without a hemodynamically significant stenosis. There is a bovine origin of the great vessels with a common origin of the brachiocephalic and left common carotid artery. Normal origin of the left subclavian artery. Atherosclerotic plaque formation at the origin of the left common carotid artery. Nonstenotic atherosclerotic plaque formation at the origin of the right brachiocephalic artery and right subclavian artery. RIGHT CAROTID ARTERIES: Normal right common carotid artery (CCA). Normal right common carotid bulb. There is extensive atherosclerotic plaque formation of the origin of the right internal carotid artery with an estimated stenosis of greater than 70%. Normal visualized cervical portion of the right internal carotid artery. Normal origin of the right external carotid artery (ECA). LEFT CAROTID ARTERIES: Normal left common carotid artery (CCA). Normal left common carotid bulb. There is extensive atherosclerotic plaque formation of the origin of the left internal carotid artery with an estimated stenosis of greater than 70%. Normal visualized cervical portion of the left internal carotid artery. Normal origin of the left external carotid artery (ECA). VERTEBRAL ARTERIES: Normal bilateral vertebral arteries. CT/CTA Neck W/WO Contrast IMPRESSION: High-grade stenosis at the origins of both the right and left internal carotid arteries caused by densely calcified plaques. Electronically Signed: Meng Miranda MD at 9:09 EST , My recent notes of March 14, 2021 reflect the following Intake Visit Reasons: CAROTID US 02/25 [facility] Chief Complaint: Carotid US 02/25 [facility] [place] Former Required: No Is patient in pain?: No Allergies No Known Allergies Allergy (Verified 03/14/21 15:10) Medications aspirin 81 mg PO DAILY 12/14/20 [History Confirmed 03/14/21] oslgnotninn-fbtrozfax-uts C-Mn [Glucosamine 1500 Complex] 1 cap PO DAILY 12/14/20 [History Confirmed 03/14/21] ibuprofen [Motrin] 200 - 400 mg PO Q6H PRN 12/14/20 [History Confirmed 03/14/21] lisinopril 10 mg PO DAILY 12/14/20 [History Confirmed 03/14/21] lutein 20 mg PO DAILY 12/14/20 [History Confirmed 03/14/21] multivitamin 1 cap PO DAILY 12/14/20 [History Confirmed 03/14/21] ferrous sulfate 27 mg iron tablet 65 mg PO DAILY tab 03/14/21 [History Confirmed 03/14/21] turmeric root extract 500 mg capsule 500 mg PO DAILY 03/14/21 [History Confirmed 03/14/21] [facility] Medical History (Updated 03/14/21 @ 15:[address] Harpreet Mitchell MD) Carotid stenosis, bilateral Carotid stenosis, bilateral Hypertension Nonhealing surgical wound Osteoarthritis, knee Swelling of knee joint, right Tobacco abuse Tobacco abuse counseling Wound dehiscence, surgical Surgical History (Updated 03/14/21 @ 15:01 by Zelda Sunday) History of colonoscopy History of hernia surgery History of right knee joint replacement Family History (Updated 03/14/21 @ 15:04 by Zelda Sunday) Father Myocardial infarction Heart disease Mother Diabetes Hypertension CVA (cerebral vascular accident) Brother Colon cancer Hypertension Social History Smoking Status: Current every day smoker tobacco type: cigarettes alcohol intake: current details: 6-8 beers per day substance use type: does not use HPI HPI HPI: EMILIE MCDONALD, is a 55 M who presents to the office today for surgical consultation regarding spots in vision.. The patient is referred by Dr. Dangelo Flores and a written copy of my surgical consult and recommendations will be returned to him. On ophthalmologic examination scattered defects were noted in both eyes. Drusen, cholesterol deposits. On February 25 the patient had carotid duplex imaging at the [facility]. There was felt to be irregular heterogenous plaque within the proximal right internal carotid artery with a peak systolic velocity of 231 cm/s flow and an end-diastolic velocity of 60 cm/s. On the left the maximum velocity in the mid internal carotid artery was 137 cm/s flow with an end-diastolic velocity of 38 cm/s. Findings were felt to be consistent with greater than 70% stenosis of the right internal carotid and 50 to 69% stenosis of the left internal carotid. He has been a long-term tobacco user and he continues to smoke at least a pack and 1/2/day.. He is just recently received assistance at the wound care center because of difficulties with healing a right knee wound. This was delayed healing of a right total knee incision. He has had no symptoms that would correlate like a bovine being brought down in front of his vision or sudden complete cut off of his vision. He states that previously when he had cholesterol levels checked that his good cholesterol always out balanced his poor cholesterol. He has been on a low-dose 81 mg aspirin for at least 5 years. He is not required any statin medication. 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 He states that despite his tobacco use he always has had a good diet. He denies any previous history of TIA or stroke or myocardial infarction. He does not complain of vascular claudication but right now his ambulation is hindered by difficulty status post a right total knee replacement with swelling and loss of range of motion and just recent secondary wound healing of the vertical incision. He has chronic swelling of the right lower extremity. Although initially he wore support hose he claims that those were very difficult to keep in position Just this past month the patient received his original and secondary COVID-19 vaccination injections. ROS General General: No weight change, appetite, fatigue, colon cancer, breast cancer or weakness HEENT HEENT: No difficulty swallowing, eye injury, eye surgery, swollen glands or hoarseness Endo Endocrine: No thyroid disease, diabetes mellitus, thyroid cancer, Hair loss, heat intolerance or cold intolerance Skin Skin: No rash or changing moles Musc Musculoskeletal: No back problems, arthritis, rheumatoid arthritis, gout or joint pain Cardio Cardiovascular: Yes high blood pressure; No murmur, pacemaker, heart disease, atrial fibrillation, heart attack, heart stent, palpitations, shortness of breat with exertion or chest pain Psych Psychiatric: No depression, anxiety or hearing voices Resp Respiratory: No shortness of breath, No sleep apnea, No cough, No COPD, No asthma, No emphysema and No wheezing Gastro Gastrointestinal: No abdominal pain, No nausea or vomiting, No diarrhea, No constipation, No blood in stool, No acid reflux, No hemorrhoids, No ulcers, No gallbladder problem and No black,tarry stools Daniel Hematologic: No blood thinners, No blood disorders, No bleeding, No anemia and No blood clots Neuro Neurologic: No system reviewed and no additional complaints, except as documented, No as per HPI, No abnormal gait, No abnormal hearing, No abnormal movements, No abnormal speech, No behavioral changes, No burning sensations, No confusion, No convulsions, No disequilibrium, No dizziness, No localized weakness, No frequent falls, No headache(s), No lack of coordination, No loss of vision, No memory loss, No numbness, No other visual disturbances, No radicular pain, No restless legs, No sensory deficit, No syncope, No tingling, No tremor(s), No weakness and No other Exam Const General: cooperative, comfortable and no acute distress Nutritional Appearance: average body habitus Orientation: alert and awake [facility] Head: normal to inspection Eyes General: appearance normal, both eyes and all related structures Neck Other: Neck is supple, carotids are easily palpated 3+ bilateral, no carotid bruits noted Chest Other: Increased anterior posterior diameter. Resp Effort & Inspection: normal respiratory effort Auscultation: clear to auscultation bilaterally Cardio Rate: regular rate Rhythm: regular rhythm Other: Bilateral radials are 3+. Bilateral brachials 3+. Bilateral femorals 3+. GI Other: Soft, nondistended, nontender, not pulsatile or expansile, no bruit noted Musc Cervical Spine: normal cervical lordosis Skin Other: Bilateral forearms demonstrate scattered areas of excoriation consistent with superficial injury Neuro General: patient alert and patient awake Extrem Other: Significantly swollen right lower extremity, nontender, mild swelling left lower extremity Psych Appearance: grossly normal Assessment and Plan Assessment and Plan (1) Tobacco abuse: Status: Acute (2) Hypertension: Status: Chronic Qualifiers: Hypertension type: unspecified Qualified Code(s): I10 - Essential (primary) hypertension (3) Bilateral carotid artery disease: Status: Acute Qualifiers: Carotid artery disease type: stenosis Qualified Code(s): I65.23 - Occlusion and stenosis of bilateral carotid arteries Orders: Orders: Lipid Profile Today I65. CTA Neck W/WO Contrast Today I65. Plan - Dr. Harpreet Mitchell MD: Greater than 70% stenosis right extracranial internal carotid artery and 50 to 69% stenosis of the left extracranial internal carotid artery. I do not believe that his vision concerns however are related to his carotid disease therefore categorizing his carotid stenosis as asymptomatic. It is unclear at the moment as to what the patient's lipid status is. He has ongoing problems with tobacco abuse and admits to 1.5 packs/day for 30 years. I have encouraged the patient to obtain a fasting lipid panel. I have encouraged the patient to cease his tobacco use and have encouraged him to work with Dr. Denton Gardner if needed for assistance. I will copy Dr. Denton Gardner with this note in hopes that the patient might be placed on a low-dose statin medication to help stabilize his carotid plaque and in addition to the bilateral drusen identified on ophthalmologic evaluation I recommended the patient that we obtain a CTA of the carotids. I will then utilize information obtained from the carotid duplex imaging in the CTA to help better advise the patient regarding treatment options. I have discussed with him today technique, benefit, risk and alternatives of medical maximization of his care in comparison to carotid endarterectomy in comparison to carotid artery stenting. At age 55 I would not be in significant favor of his having carotid artery stenting particularly in light if he is unable to cease his tobacco use. He has had an opportunity to ask and have questions answered. We will provide additional information instruction upon obtaining his lipid profile and carotid CTA. Copy: Dr. Dangelo Flores and Dr. Denton Gardner Time spent: 60 minutes Harpreet Mitchell M.D., F.A.C.S. Assessment and Plan Assessment and Plan (1) Bilateral carotid artery disease: Status: Acute Qualifiers: Carotid artery disease type: stenosis Qualified Code(s): I65.23 - Occlusion and stenosis of bilateral carotid arteries Plan - Dr. Harpreet Mitchell MD: I spent 30 minutes [id number] with the patient today. I have reviewed carotid duplex imaging and CTA of the carotids with him. It is not completely clear to me that either of his bilateral eye issues are related to his carotids. I believe that he certainly has greater than 70% stenosis over a long narrowed area of stenosis of his right internal carotid. At age 55 I would propose for him a right carotid endarterectomy with bovine patch angioplasty and arterial line monitoring and in detail I have discussed the technique, benefit, risk, alternatives. We will maintain him on his 81 mg aspirin up until the time of surgery. No guarantees of success have been offered. Regarding his left internal carotid it is less clear to me that this is a critical stenosis. I believe that the calcium on his CT scan and tortuosity is shadowing and making it difficult for absolute determination and the carotid duplex exam does not suggest greater than 70% stenosis on the left. Therefore for his left internal carotid likely plan future follow-up carotid duplex imaging but at a shorter time interval. As noted the patient has an updated appointment with Dr. Dangelo Flores ophthalmology regarding his eye issues. The patient is attempting to slow down and stop his cigarette smoking. He has been provided medication per primary care. He has had an opportunity to ask and have questions answered. We will schedule procedure at his discretion. I appreciate the opportunity of assisting with the surgical care. Copy: Dr. Denton Mitchell M.D., F.A.C.S. I have re-examined the patient. There are no clinical changes since date of exam.
--- NOTE | 2021-04-13 06:04 | SUR.PREOP ---
Dr. Mitchell and JULIAN in room placing arterial line at this time.
--- NOTE | 2021-04-13 06:16 | OP.PCM_ITS ---
Problems Associated Problem List Diagnoses (1) Bilateral carotid artery disease: Report of Operation Date of Procedure: 04/13/21 Pre-Operative Diagnosis: Severe bilateral extracranial carotid artery occlusive disease worse on the right Post-Operative Diagnosis: Same Surgery/Procedure Performed:: Right radial line placement Right carotid endarterectomy with bovine patch angioplasty Vascu-Guard 0.8 x 8 cm patch. Reference number [id number], lot number [id number], expiry date 05/17/2025 Description of Surgical Findings:: Timeout informed consent was obtained. At the bedside right wrist was gently extended demonstrating adequate ulnar flow. The wrist was prepped with Betadine. Ultrasound guidance 1% lidocaine was used as local anesthetic. 1 cc was used. Then a 20-gauge arrow Angiocath under ultrasound guidance was advanced into the right radial artery. Was easily advanced with Seldinger wire technique. It was secured skin with 3-0 silk. Was connected to pressure tubing. Good waveform was obtained. OpSite dressing applied followed by Maggi wrap. He tolerated the procedure well no apparent complication hand was viable at the completion. The patient was subsequently taken the operating room placed supine on the table. He underwent general endotracheal intubation anesthesia. Ancef 2 g were given intravenously. The right neck was sterilely prepped and draped. An oblique incision was made along the anterior border of the sternocleidomastoid. Sharp dissection carried down through the subtenons tissue. Sternocleidomastoid was reflected laterally as sharp dissection was performed directly down upon the common carotid. Crossing facial vein was secured with 3-0 Vicryl. Dissection was performed to identified common carotid carotid bulb proximal internal carotid and external carotid. The amount of disease of the internal carotid artery was quite a long length. Fortunately because of the patient's slender body habitus I was able to mobilize the hypoglossal nerve and gain quite a significant line of cephalad access upon the internal carotid artery. A Dacron tape and Jonn tourniquet was placed. The vessel loop was placed around the external carotid and a 3-0 Vicryl tie around the superior thyroid artery. Long tie of Dacron placed on the common carotid. Answers of occasions identified and protected. Vagus nerve identified protected and the hypoglossal nerve identified protected. The patient received 7000 Ancef heparin and then based upon ACT measurements during the procedure he received another 1000 units. After adequate circulating time a Dodson clamp was placed on the internal carotid and peripheral vascular clamps were placed on the common carotid and external carotid and eleven blade was used to make an arteriotomy which was extended with Long scissors. A #8 USCI style shunt was placed cephalad and proximally. Time to place the shunt was 2 minutes. Then an endarterectomy was formed with a layer of the external elastic lamina. The plaque was sharply transected proximally and then carefully elevated with an elevator. [place] that I got the vast majority of the plaque and was able to get it feathered nicely at the internal carotid with good visualization of that area. The inversion endarterectomy was performed of the external carotid. Further debris was carefully removed with fine forceps. The cephalad internal carotid intima was secured with a single tacking suture of 7-0 Prolene. Then the bovine patch was shaped to form slightly narrowing it. A patch angioplasty was performed with a running 6-0 Prolene. Prior to completion the shunt was removed the vessel was irrigated there was good retrograde flow from the internal carotid external carotid good antegrade flow from the common carotid. Patch angioplasty was completed. Time for shunt removal was 3 minutes. A couple repair sutures of 6-0 Prolene were required. Hemostasis was then intact. The patient then had heparin reversal with 20 mg of protamine IV. Hemostasis was intact. Wound was closed by approximate the platysma with a running 3-0 Vicryl. Skin edges approximated running septic or 5-0 Vicryl. Periincisional area was anesthetized with 20 cc of 0.5% Marcaine. Steri-Strips Telfa tape dressings were applied. He tolerated the procedure well was grossly neurologically intact and was taken to the recovery area in satisfactory addition without apparent complication Specimen plaque. Drains none. Blood loss 200 cc. Harpreet Mitchell M.D., F.A.C.S. Surgeon: Harpreet Mitchell Type of Anesthesia: General and Local Anesthesiologist: Joe Pierson
--- NOTE | 2021-04-13 06:19 | DCINST_ITS ---
Discharge Instructions Diet Discharge Diet: Light diet - advance as tolerated Activity Discharge Activity: May Not Drive (For 5 to 7 days), May Not Shower (For 3 days) and May Take a Tub Bath Weight Bearing Status: Full weight bearing Additional Activity Instructions:: May shower on Sunday carefully padding the right neck dry with a clean towel. Leave the Steri-Strips in place for 1 week Dressing / Incision Call your doctor if your incision/area has: Continuous Slow Oozing, Sudden Increased Bleeding and Increased Pain/ Swelling Call your doctor if you observe: Fever of 101 or Higher Suture Line Care: Avoid Pulling/Pushing Change Dressing in: 1 day (You may apply a dry gauze cover dressing to your incision as needed to protect from clothing irritation. Change as needed) Remove Dressing in: 1 week (Leave your Steri-Strips in place for 1 week then you may remove) Follow Up Care Please Follow Up With: Harpreet Mitchell MD When: Approximately 10 days. Please call [phone] to arrange for an ap pointment Test Results: Please follow-up with urology Dr García at his instructions.. Please also contact Dr. Denton Gardner for routine primary care follow-up parti cularly in regards to blood pressure control Discharge Plan Admission Admit Date/Time: 04/13/21 05:26 Primary Reason for Your Visit: Severe stenosis right greater than left carotid artery Attending Provider: Harpreet Mitchell Primary Care Provider: Denton Gardner Discharge Orders/Prescriptions Prescriptions: Continued turmeric root extract 500 mg capsule 500 mg PO DAILY RF: 0 varenicline 1 mg tablet 1 mg PO BID RF: 0 ibuprofen 100 mg Tablet 200 - 400 mg PO Q6H PRN (Reason: Pain) RF: 0 lisinopril 10 mg Tablet 10 mg PO DAILY RF: 0 aspirin 81 mg Tablet 81 mg PO DAILY RF: 0 multivitamin Capsule 1 cap PO DAILY RF: 0 xjhjjccjbyx-hrdgbfodv-ewa C-Mn 500-400 mg Capsule 1 cap PO DAILY RF: 0 lutein 20 mg Capsule 20 mg PO DAILY RF: 0 ferrous sulfate 27 mg iron tablet 65 mg PO DAILY RF: 0 Referrals / Follow Up: Denton Gardner MD [Primary Care Provider] - Disposition Discharge Orders: Discharge Patient (Routine); Ordered 04/14/21 Ordered By: Dr. Harpreet Mitchell
[2021-04-13] MEDS: Cefazolin 2 GM in 0.9% Normal Saline 100 ML IV (07:28)
--- NOTE | 2021-04-13 07:30 | PLAQ_PTH ---
PATIENT: EMILIE MCDONALD LOC: MS3 U#:[id number] AGE/SX: 55/M ROOM: [facility] RE04/13/[address]: Dr. Harpreet Mitchell MD : 1965 BED: 1 DIS: 04/14/2021 SPEC #: [id number] RECD: 04/13/21 10:39 STATUS: ROJAS CRUZ #: [id number] LUPE: 04/13/21 07:[address]: Harpreet Mitchell DEPT: SURGICAL PATHOLOGY RECD BY: Xiomara Banks ENTERED: 04/13/21 11:10 SP TYPE: PLAQUE OTHR DR: Dr. Denton Gardner MD Tissues: PLAQUE Procedures: Decalcification bone/plaque Surgery Specimen Level III HEADER OPERATION: Carotid endarterectomy with patch angioplasty PRE-OP DIAGNOSIS: Bilateral carotid artery disease TISSUE SUBMITTED: Plaque right carotid MICROSCOPIC DIAGNOSIS Right carotid plaque, endarterectomy: Calcified atheromatous plaque. Focal pigmented macrophages, benign. See comment. AM:ze 04/18/2021 COMMENT The findings are consistent with severe stenosis. Clinical correlation is suggested. GROSS DESCRIPTION Received in fixative is one container labeled with the patient's name and designated plaque right carotid. The specimen consists of a previously opened tubular piece of miller-yellowish indurated tissue measuring 3 cm in length and up to 1 cm in diameter. The specimen cuts with gritty sensation. The entire specimen is submitted in one cassette after decalcification. / SJ:ze 04/13/2021 TC:5 CPT: 29360, 31101
[2021-04-13] MEDS: Heparin Injection (Vial) 5,000 UNIT/ML VIAL 5000 UNIT (09:14)
[2021-04-13] MEDS: Bupivacaine Mpf 0.5% 30 ML VIAL (09:15)
--- NOTE | 2021-04-13 12:54 | PCM.CONS.U ---
Assessment & Plan Assessment/Plan (1) Meatal stenosis: PLAN: We will have to dilate the meatus and place a catheter today (2) Urinary retention: PLAN: We will start her on Flomax and we can probably do a voiding trial tomorrow morning HPI Consult Data Date of Consult: 04/13/21 HPI Narrative HPI Narrative: EMILIE MCDONALD, is a 55 M who, underwent a carotid endarterectomy, in the PACU setting that developed retention of urine and the nursing staff was not able to place a catheter he is found to have a very tight meatal stenosis as a result of his injury when he was a child, he has never seen a urologist before but he was aware of his very tight meatus. [facility] Medical History (Updated 04/13/21 @ 12:[address] Andrew García MD) Alcohol use Arthritis Back pain Carotid stenosis, bilateral Carotid stenosis, bilateral History of edema Hypertension Low iron Nonhealing surgical wound Osteoarthritis, knee Smoker Swelling of knee joint, right Tobacco abuse Tobacco abuse counseling Wears dentures Wears glasses Wound dehiscence, surgical Home Medications aspirin 81 mg PO DAILY 12/14/20 [History Last Taken Unknown] xfwisbppaox-anslbhbtz-izq C-Mn [Glucosamine 1500 Complex] 1 cap PO DAILY 12/14/20 [History Last Taken Unknown] ibuprofen [Motrin] 200 - 400 mg PO Q6H PRN 12/14/20 [History Last Taken Unknown] lisinopril 10 mg PO DAILY 12/14/20 [History Last Taken 04/13/21 04:00] lutein 20 mg PO DAILY 12/14/20 [History Last Taken Unknown] multivitamin 1 cap PO DAILY 12/14/20 [History Last Taken Unknown] ferrous sulfate 27 mg iron tablet 65 mg PO DAILY tab 03/14/21 [History Last Taken Unknown] turmeric root extract 500 mg capsule 500 mg PO DAILY 03/14/21 [History Last Taken Unknown] varenicline 1 mg tablet 1 mg PO BID 03/24/21 [History Last Taken Unknown] Allergy/AdvReac Type Severity Reaction Status Date / Time No Known Allergies Allergy Verified 04/13/21 06:18 Family History Father Myocardial infarction Heart disease Mother Diabetes Hypertension CVA (cerebral vascular accident) Brother Colon cancer Hypertension Surgical History History of colonoscopy History of hernia surgery History of right knee joint replacement Social History (Updated 03/24/21 @ 09:52 by Zelda Sunday) Smoking Status: Current every day smoker tobacco type: cigarettes how long ago did patient quit smoking: pt is currently trying to quit smoking, is on Chantix alcohol intake: current details: 6-8 beers per day substance use type: does not use ROS Constitutional Constitutional: Denies chills, fever(s) or malaise Eyes Eyes: Denies blurry vision or change in vision ENT HEENT: Reports none Cardiovascular Cardiovascular: Denies chest pain or palpitations Respiratory/Chest Respiratory/Chest: Denies cough or shortness of breath with exertion Gastrointestinal Gastrointestinal: Denies abdominal pain, constipation or diarrhea Musculoskeletal Musculoskeletal: Denies back pain, joint stiffness or joint swelling Integumentary Integumentary: Denies dry skin, jaundice, lesions or rash Neurologic Neurologic: Denies confusion, syncope or weakness Psychiatric Psychiatric: Reports none; Denies anxiety or depression Endocrine Endocrinology: Denies excessive sweating, fatigue or flushing Hematologic/Lymphatic Hematologic/Lymphatic: Denies anemia, easy bleeding or easy bruising Physical Exam Const alert and oriented x3 General Appearance: cooperative HEENT normocephalic, head/scalp atraumatic, EAC's normal and TM's normal bilaterally Eyes PERRL and EOMs intact bilaterally Pupil: sluggish Neck no lymphadenopathy, supple and no JVD General: trachea midline Lymph Lymphatic: no lymphadenopathy noted, lymphedema and lymphadenopathy Resp normal respiratory effort, normal air movement and clear to auscultation bilaterally Cardio regular rate, regular rhythm and peripheral pulses 2+ throughout GI soft to palpation, non-tender and non-distended Extremity normal capillary refill and no clubbing, cyanosis or edema General Extremity: no tenderness to palpation of joints or extremities Skin no rashes or lesions noted General Skin Exam: turgor normal Lesions: no lesions Rashes: no rashes Neuro CN's II-XII intact bilaterally Speech: speech normal Motor Exam: strength 5/5 throughout; Negative for general weakness Psych thought process normal, cooperative and affect normal Appearance: appropriate Lab / Micro Data Result Diagrams: 04/08/21 09:19 04/08/21 09:19
--- NOTE | 2021-04-13 12:55 | OP.PCM_ITS ---
Report of Operation Date of Procedure: 04/13/21 Pre-Operative Diagnosis: Meatal stenosis Post-Operative Diagnosis: Same Surgery/Procedure Performed:: Dilation of meatal stenosis and placement of a Wolfe catheter Description of Surgical Findings:: At the bedside the penis was prepped and draped in usual sterile fashion I then used a Glidewire and advanced it through the type meatal stenosis then over the Glidewire I used a the sounds in the Bard urology kit and dilated a very tight meatal stenosis it was pinpoint tight at the dilated from 12 Montenegrin up to 18 Montenegrin using the Bard kit sounds. After this was done then I was able to place a 16 Montenegrin bishop paiute tip catheter into the bladder 10 cc were placed in the balloon and this was placed to gravity drainage. Surgeon: minerva Type of Anesthesia: General Drains: wolfe Admit VTE Documentation VTE Present on Admission: No VTE Mechan Device Prophylaxis: SCD's VTE Pharm Prophylaxis ordered?: No
[2021-04-13] MEDS: Nitroglycerin Oint 1 INCH PACKET 0.5 INCH TD ×2 (13:29→22:32)
[2021-04-13] MEDS: Lactated Ringers 1,000 ML 30 ML IV (13:57)
[2021-04-13] MEDS: Varenicline 1 MG Tablet PO ×2 (14:46→22:29)
[2021-04-13] MEDS: Cefazolin 1 GM/50 ML BAG IV ×2 (15:08→22:29)
[2021-04-13 15:15] LABS: ACT Activated Clotting Time 142 sec (74-137)
[2021-04-13 15:17] LABS: ACT Activated Clotting Time 231 sec (74-137)
[2021-04-13 15:18] LABS: ACT Activated Clotting Time 202 sec (74-137)
--- NOTE | 2021-04-13 16:22 | PCM.PN.SRG ---
Subjective Subjective Patient currently feels well. No complaints. He has minimal tenderness right neck. Objective Data Objective Data Vital Signs: Vital Signs Temp Pulse Resp BP Pulse Ox 98.2 F 97 16 172/84 H 99 04/13/21 15:43 04/13/21 15:43 04/13/21 15:43 04/13/21 15:43 04/13/21 15:43 Oxygen Delivery Method Room Air Weight: 152 lb 1.903 oz Body Mass Index (BMI) 21.8 Intake & Output: Intake and Output for Last 24 Hours 04/11/21 04/12/21 04/13/21 23:59 23:59 23:59 Intake Total 1089.75 / 1089.75 Output Total 3650 / 3650 Balance -2560.25 / -2560.25 Lab / Micro Data Result Diagrams: 04/08/21 09:19 04/08/21 09:19 Labs: Laboratory Results - last 24 hr 04/13/21 06:46: Activated Clotting Time 142 H 04/13/21 08:03: Activated Clotting Time 231 H 04/13/21 08:38: Activated Clotting Time 202 H Physical Exam Narrative Right neck is supple, dressings intact clean and dry Assessment & Plan Assessment/Plan (1) Urinary retention: (2) Meatal stenosis: (3) Bilateral carotid artery disease: QUALIFIERS: Carotid artery disease type: stenosis Qualified Code(s): I65.23 - Occlusion and stenosis of bilateral carotid arteries PLAN: The patient had postoperative urinary retention. Damico catheter could not be placed by nursing and so was consulted and by verbal report was able to place a Damico catheter albeit with some effort. The patient had greater than 3000 cc of urine. This suggests a very chronic problem. The patient is neurologically intact from his right carotid enterectomy Hypertension being treated in the PACU with labetalol without much effect as well as hydralazine and then subsequently sent to the floor with a small amount of Nitropaste. I will again treat with IV hydralazine now and as needed. The patient however is quite stable currently. Patient is aware of plan rounds early tomorrow morning anticipate discharge tomorrow morning. I appreciate the assistance of and suspect the patient will require outpatient follow-up for catheter management. Harpreet Mitchell M.D., F.A.C.S.
[2021-04-13] MEDS: hydrALAZINE 20 MG/ML Vial 10 MG IV (17:28)
[2021-04-13] MEDS: Tamsulosin HCl 0.4 MG Capsule PO (17:55)
[2021-04-13] MEDS: Acetaminophen 325 MG Tablet PO (22:28)
[2021-04-14] VITALS (11 sets, daily range): BP systolic 162–187; BP diastolic 84–92; PULSE 85–103; RESP 16–18; TEMP 36.7–37.1; O2SAT 96–99
[2021-04-14] MEDS: hydrALAZINE 20 MG/ML Vial 10 MG IV ×2 (03:03→10:59)
[2021-04-14] MEDS: 0.9% Saline Lock 10 ML Syringe IV (03:03)
[2021-04-14] MEDS: Acetaminophen 325 MG Tablet PO ×2 (03:06→11:17)
--- NOTE | 2021-04-14 06:20 | PCM.PN.SRG ---
Subjective Subjective Patient has no complaints. Tylenol was all that was required for his right neck incision. Neurologically remains intact. Objective Data Objective Data Vital Signs: Vital Signs Temp Pulse Resp BP Pulse Ox 98.1 F 96 18 177/84 H 98 04/14/21 04:39 04/14/21 04:39 04/14/21 04:39 04/14/21 04:39 04/14/21 04:39 Oxygen Delivery Method Room Air Weight: 152 lb 1.903 oz Body Mass Index (BMI) 21.8 Intake & Output: Intake and Output for Last 24 Hours 04/12/21 04/13/21 04/14/21 23:59 23:59 23:59 Intake Total 1989.75 / 2789.75 800 / 800 Output Total 6250 / 7350 1100 / 1100 Balance -4260.25 / -4560.25 -300 / -300 Lab / Micro Data Result Diagrams: 04/08/21 09:19 04/08/21 09:19 Labs: Laboratory Results - last 24 hr 04/13/21 06:46: Activated Clotting Time 142 H 04/13/21 08:03: Activated Clotting Time 231 H 04/13/21 08:38: Activated Clotting Time 202 H Physical Exam Narrative Right neck very clean supple incision. Narrative: Damico catheter in place large volume urine output Assessment & Plan Assessment/Plan (1) Urinary retention: (2) Bilateral carotid artery disease: QUALIFIERS: Carotid artery disease type: stenosis Qualified Code(s): I65.23 - Occlusion and stenosis of bilateral carotid arteries PLAN: Recommend discharge this morning with urology follow-up as per Dr. García The patient will use ekzy-kpq-tceciwq medicines for discomfort. He is instructed to resume his aspirin therapy in addition to his other medications. I plan surgical follow-up in 10 days. We will closely monitor his left carotid stenosis. Will recommend follow-up with Dr. Denton Gardner to the patient still mildly elevated blood pressure. Harpreet Mitchell M.D., F.A.C.S.
[2021-04-14] MEDS: Nitroglycerin Oint 1 INCH PACKET 0.5 INCH TD (06:27)
[2021-04-14] MEDS: Aspirin 81 MG TAB.CHEW PO (08:16)
[2021-04-14] MEDS: Varenicline 1 MG Tablet PO (08:16)
[2021-04-14] MEDS: Lisinopril 10 MG Tablet PO (08:16)
--- NOTE | 2021-04-14 10:15 | CASEMGMT ---
VINH CUI Face to Face with patient for initial transition planning/care coordination assessment. RN CM introduced self and role at [facility]. Patient sitting in chair, alert and oriented. Patient willing to participate in assessment and is able to answer all questions appropriately. Care providers, pharmacy, and demographics verified. Patient wishes to discharge home, denies need for home health at this time. Patient states he has no further needs or concerns at this time. CM to follow for discharge planning needs that may arise. PCP: Jj Specialists: Paula, surgeon; Ricky, urologist Preferred Pharmacy: [facility]; [facility] retail at discharge Insurance: [employer] Prescription Benefit: yes Living Will/HPOA: none LNOK: brothers Living Arrangements: Patient lives alone in a 2 story home with bed and bath on first floor. Patient states he is independent and able to ambulate at home. Transportation: self, brother DME/HHC: patient states he has shower chair, raised toilet, cane, crutches, grab bars, walker, and wheelchair at home. Patient denies previous HHC or SNF Disposition Plan: Patient to discharge home with family support and follow plans in place. Katelyn ACUNA, RN, CM
--- NOTE | 2021-04-14 12:50 | NURSING ---
wolfe removed at 0830 - pt has drank approx 1600ml of fluid, walked halls x1, up in room, sitting in chair. no feeling of the need to void. bladder scanned for 581.. Call placed to Dr. García.
== END 2021-04-14 17:03 | disposition home or self-care (01) | DRG 39 ==
LOC: ACINP 05:31 → MS3 04-14 09:55
PROVIDERS: Anesthesiology; Admitting Provider Surgery; PCP Family Medicine; Referring Provider Surgery; Visit Provider Surgery
PROC: 03CK0ZZ Extirpation of Matter from Right Internal Carotid Artery, Open Approach (ICD-10-PCS; CPT 35301; principal; 2021-04-13 07:10)
DX: I65.23 Occlusion and stenosis of bilateral carotid arteries (principal); F17.210 Nicotine dependence, cigarettes, uncomplicated; I10 Essential (primary) hypertension; M19.90 Unspecified osteoarthritis, unspecified site; Z96.651 Presence of right artificial knee joint; Z79.82 Long term (current) use of aspirin; R33.9 Retention of urine, unspecified; Z79.899 Other long term (current) drug therapy; N35.911 Unspecified urethral stricture, male, meatal
CPT/HCPCS: 36415; 80048; 80076; 84443; 85027; 85347; 85610; 85730; 88304; 88311; 93005; 99251; J7030; J7040; J7120; A4216; C1758; G0463; J2405

== ENCOUNTER 2021-05-13 08:55 | Outpatient (CLI) | payer BC, SELFPAY ==
--- NOTE | 2021-05-13 09:05 | CDUL_ITS ---
Reason For Study: Stenosis Rt. Velocities/BP Prox CCA 96.9/17.3 cm/sec. Mid CCA 78.6/14.7 cm/sec. Dist CCA 81.2/21.3 cm/sec. Prox ICA 64.2/15.1 cm/sec. Mid ICA 66.7/16.3 cm/sec. Dist ICA 76.5/24.9 cm/sec. Rt. ICA/CCA = 0.97. Prox ECA 167.4/22.6 cm/sec. Rt. Vert. 42.8/7.5 cm/sec. Right Extracranial There is heterogeneous, irregular atherosclerotic plaque noted in the right common carotid artery. There is heterogeneous, smooth atherosclerotic plaque noted in the right internal carotid artery. There is heterogeneous, irregular atherosclerotic plaque noted in the right external carotid artery. Antegrade flow is noted in the right vertebral artery. Procedure Carotid Duplex 87561. This is a Carotid Duplex examination using B-mode, color flow and specral Doppler. Exam performed in department. VL/Carotid Unilateral Interpretation Summary Post operative changes right carotid bulb and proximal internal carotid with <5 0% stenosis <50% stenosis right external carotid Patent antegrade right vertebral Ordering Physician: Katie Thompson Referring Physician: Edgar Gardner M.D. Performed By: Katelyn Eric RVT
== END 2021-05-13 23:59 | disposition home or self-care (01) ==
LOC: CVS 08:56
PROVIDERS: PCP Family Medicine; Referring Provider Physician Assistant; Visit Provider Physician Assistant
DX: Z98.890 Other specified postprocedural states (principal); I65.22 Occlusion and stenosis of left carotid artery
CPT/HCPCS: 93882

== ENCOUNTER → 2021-07-01 | Outpatient (CLI) | payer BC, SELFPAY ==
[2021-07-01 11:26] LABS: Synovial Fld Mononuclear WBC % 84.9 %; Synovial Fld Polynuclear WBC # 0.016 10^3/uL; Synovial Fld Polynuclear WBC % 15.1 %
[2021-07-01 11:26] LABS: Erythrocyte Sedimentation Rate 15 mm/hr (0-20)
[2021-07-01 11:28] LABS: Absolute Lymphocyte Count 1.03 X10^3/uL (0.83-4.51); Absolute Neutrophil Count 4.9 X10^3/uL (2.0-7.7); Basophil# 0.04 X10^3/uL; Basophil% 0.6 % (0-1); Eosinophil# 0.01 X10^3/uL; Eosinophils% 0.1 % (0-5); Hematocrit 34.7 % (40-54); Hemoglobin 12.1 g/dL (13.0-16.5); Lymphocyte # 1.03 X10^3/ul (0.83-4.51); Lymphocyte % 15.3 % (19-41); Mean Corp Hgb Conc 34.9 g/dL (32-36); Mean Corpuscular Hgb 34.8 pg (27.0-32.0); Mean Corpuscular Volume 99.7 fL (80-94); Mean Platelet Vol. 8.3 fl (6.2-12.0); Monocyte# 0.73 X10^3/uL; Monocyte% 10.8 % (0-10); NRBC Flagged by Analyzer 0 % (0-5); Neutrophil # 4.91 X10^3/uL (2.7-7.7); Neutrophil % 72.8 % (47-70); Platelet Count 291 K/mm3 (150-450); RBC Distribution Width CV 12.7 % (11.6-14.6); RBC Distribution Width SD 46.5 fl (35.1-43.9); Red Blood Count 3.48 M/mm3 (4.6-6.2); White Blood Count 6.8 K/mm3 (4.4-11.0)
[2021-07-01 11:29] LABS: RBC /Synovial Fluid 0.007 10^6/uL (0)
[2021-07-01 11:30] LABS: AUTO B FLUID DILUENT BKGD CT WBC <0.1 RBC <0.01 (W<.1,R<.01); Appearance /Synovial Fluid Sl hazy (CLEAR); Color / Synovial Fluid Pink (Pale Yellow); Source / Synovial Fluid R KNEE; Viscosity / Synovial Fluid Sl. Viscous (HIGH)
[2021-07-01 11:53] LABS: CRP < 2.90 mg/L (0.0-3.0)
[2021-07-01 11:54] LABS: Lymph 58 %; Monocyte /Synovial Fluid 4 %; Neutrophil 38 % (0-25)
[2021-07-01 12:02] LABS: Body Fluid QC Type(s) BF1Q
[2021-07-05 09:13] LABS: Pathologist Comment Reviewed
== END | disposition home or self-care (01) ==
LOC: LAB 10:29
PROVIDERS: PCP Family Medicine; Referring Provider Specialist; Visit Provider Specialist
DX: Z96.651 Presence of right artificial knee joint (principal)
CPT/HCPCS: 36415; 85025; 85652; 86140; 87015; 87070; 87075; 87101; 87116; 87205; 87206; 89050; 89051

== ENCOUNTER 2021-08-10 15:45 | Observation (INO) | payer BC, SELFPAY ==
[2021-08-03 17:05] LABS: Anion Gap 6 (5-15); BUN 12 mg/dL (7-18); Calcium,Total 9.3 mg/dL (8.5-10.1); Chloride 99 mmol/L (98-107); Creatinine, Serum 0.75 mg/dL (0.70-1.30); EST Glomerular Filtration Rate 115 mL/min (>60); Est Glom Filt Rate - Afr Amer 139 mL/min (>60); Glucose 109 mg/dL (74-106); Potassium 4.1 mmol/L (3.5-5.1); Sodium Level 132 mmol/L (136-145)
[2021-08-10] VITALS (9 sets, daily range): BP systolic 132–187; BP diastolic 58–97; PULSE 65–94; RESP 16–20; TEMP 36.4–37.4; O2SAT 98–100; BMI 21.4
[2021-08-10] MEDS: Lactated Ringers 1,000 ML 15 ML IV ×2 (11:00)
--- NOTE | 2021-08-10 12:45 | PROS_PTH ---
PATIENT: EMILIE MCDONALD LOC: MS3 U#:[id number] AGE/SX: 55/M ROOM: [facility] RE08/10/[address]: Dr. Adnrew García MD : 1965 BED: 1 DIS: 08/11/2021 SPEC #: [id number] RECD: 08/11/21 09:13 STATUS: ROJAS CRUZ #: [id number] LUPE: 08/10/21 12:[address]: Andrew García DEPT: SURGICAL PATHOLOGY RECD BY: Xiomara Banks ENTERED: 08/11/21 13:25 SP TYPE: TURP OTHR DR: Dr. Denton Gardner MD Tissues: A - Prostate, NOS B - Urinary bladder, NOS Procedures: Surgery Specimen Level IV HEADER OPERATION: Robotic bladder diverticulectomy PRE-OP DIAGNOSIS: Urinary retention, BPH with obstruction/lower urinary tract symptoms, bladder diverticulum TISSUE SUBMITTED: A ? Prostate tissue, B ? Bladder diverticulum MICROSCOPIC DIAGNOSIS A. Prostate, transurethral resection: Benign nodular hyperplasia. Chronic inflammation. Urothelium with associated chronic inflammation. B. Urinary bladder diverticulum, excision: Chronic inflammation. AM:ze 08/12/2021 MICROSCOPIC DESCRIPTION Slides are reviewed. GROSS DESCRIPTION A - Received is one container labeled with the patient's name and designated prostate tissue. The specimen consists of multiple irregular fragments of pink-miller, rubbery, soft tissue that in aggregate weigh 4 gm and measure in aggregate 4 x 3.5 x 1.5 cm. The entire specimen is submitted in five cassettes. B - Received in fixative is one container labeled with the patient's name and designated bladder diverticulum. The specimen consists of two pieces of miller soft tissue measuring in aggregate 10.5 x 6.5 x 0.4 cm. No mass lesion is identified. One surface appears to be mucosal surface without any mass lesion. Senior It Specialist sections are submitted in two cassettes. / SJ:ze 08/11/2021 TC:3 CPT: 00429 x2
[2021-08-10] MEDS: Cefazolin 2 GM in 0.9% Normal Saline 100 ML IV (13:30)
--- NOTE | 2021-08-10 13:35 | HP.PCM_ITS ---
HPI - General General Chief Complaint: BPH with obstruction and bladder diverticulum HPI Narrative EMILIE MCDONALD, is a 55 M who presents robotic removal of a bladder diverticulum placement of a ureteral catheter in the left side and TURP [facility] Medical History (Updated 08/10/21 @ 13:[address] Andrew García MD) Alcohol use Arthritis Back pain Carotid stenosis, bilateral Carotid stenosis, bilateral History of edema Hypertension Low iron Nonhealing surgical wound Osteoarthritis, knee Pressure ulcer Smoker Swelling of knee joint, right Tobacco abuse Tobacco abuse counseling Wears dentures Wears glasses Wound dehiscence, surgical Home Medications aspirin 81 mg tablet 81 mg PO DAILY SUPPLEMENT 12/14/20 [History Last Taken 08/09/21] zyirzuexzbb-pcjxwstgr-ykl C-Mn 500 mg-400 mg capsule 1 cap PO DAILY SUPPLEMENT 12/14/20 [History Last Taken 08/09/21] lisinopril 10 mg tablet 10 mg PO DAILY BP 12/14/20 [History Last Taken 04/13/21 04:00] lutein 20 mg capsule 20 mg PO DAILY SUPPLEMENT 12/14/20 [History Last Taken 08/09/21] multivitamin 1 cap PO DAILY SUPPLEMENT 12/14/20 [History Last Taken 08/09/21] ferrous sulfate 27 mg iron tablet 65 mg PO DAILY SUPPLEMENT 03/14/21 [History Last Taken 08/09/21] turmeric root extract 500 mg capsule 500 mg PO DAILY SUPPLEMENT 03/14/21 [ History Last Taken 08/09/21] calcium 100 mg capsule mg PO 08/03/21 [History Last Taken 08/09/21] potassium 75 mg tablet mg PO 08/03/21 [History Last Taken 08/09/21] ciprofloxacin HCl 500 mg tablet (Cipro) 500 mg PO BID #14 tabs 08/10/21 [Rx Last Taken Unknown] docusate sodium 100 mg capsule (Colace) 100 mg PO BID #20 caps 08/10/21 [Rx Last Taken Unknown] oxycodone-acetaminophen 5 mg-325 mg tablet 1 tab PO Q6H PRN pain 7 days #14 tabs 08/10/21 [Rx Last Taken Unknown] Allergy/AdvReac Type Severity Reaction Status Date / Time No Known Allergies Allergy Verified 08/10/21 11:03 Family History Father Myocardial infarction Heart disease Mother Diabetes Hypertension CVA (cerebral vascular accident) Brother Colon cancer Hypertension Surgical History (Updated 04/20/21 @ 13:32 by Lynnette Carranza) History of colonoscopy History of hernia surgery History of right knee joint replacement History of right-sided carotid endarterectomy Social History Smoking Status: Current every day smoker tobacco type: cigarettes how long ago did patient quit smoking: pt is currently trying to quit smoking, is on Chantix alcohol intake: current details: 6-8 beers per day substance use type: does not use ROS Constitutional Constitutional: Denies chills, fever(s) or malaise Eyes Eyes: Denies blurry vision or change in vision ENT HEENT: Reports none Cardiovascular Cardiovascular: Denies chest pain or palpitations Respiratory/Chest Respiratory/Chest: Denies cough or shortness of breath with exertion Gastrointestinal Gastrointestinal: Denies abdominal pain, constipation or diarrhea Musculoskeletal Musculoskeletal: Denies back pain, joint stiffness or joint swelling Integumentary Integumentary: Denies dry skin, jaundice, lesions or rash Neurologic Neurologic: Denies confusion, syncope or weakness Psychiatric Psychiatric: Reports none; Denies anxiety or depression Endocrine Endocrinology: Denies excessive sweating, fatigue or flushing Hematologic/Lymphatic Hematologic/Lymphatic: Denies anemia, easy bleeding or easy bruising Vital Signs Vital Signs Vital Signs: 08/10/21 11:06 08/10/21 11:06 Temperature 99.4 F H Temperature Source Temporal Pulse Rate 82 Respiratory Rate 20 H Respiratory Pattern Normal Blood Pressure 158/97 H Blood Pressure Mean 117 Blood Pressure Source Monitor Blood Pressure Position Semi-Fowlers Blood Pressure Location Left Arm Pulse Ox 99 Oxygen Delivery Method Room Air Weight Weight: 68 kg Body Mass Index (BMI) 21.4 Physical Exam Const alert and oriented x3 General Appearance: cooperative HEENT normocephalic and head/scalp atraumatic Eyes PERRL and EOMs intact bilaterally Neck supple, no JVD and no carotid bruits Resp normal respiratory effort, normal air movement and clear to auscultation bilaterally Cardio regular rate and no murmurs GI normal to inspection, nondistended, normoactive bowel sounds and soft to palpation Extremity normal capillary refill General Extremity: no tenderness to palpation of joints or extremities; Negative for edema Skin no rashes or lesions noted and no wounds General Skin Exam: no breakdown Neuro CN's II-XII intact bilaterally Psych affect normal Appearance: appropriate Results Lab / Micro Data Result Diagrams: 08/03/21 16:09 Assessment & Plan Assessment/Plan (1) Urinary retention: (2) BPH with obstruction/lower urinary tract symptoms: (3) Bladder diverticulum: PLAN: Removal of bladder diverticulum transurethral resection of the prostate and placement of ureteral catheter.
--- NOTE | 2021-08-10 13:37 | PCM.DC ---
Discharge Instructions Diet Discharge Diet: No restrictions, Light diet - advance as tolerated and Soft diet Activity Discharge Activity: May Shower Return to work on:: 09/07/21 Lifting Restrictions: no lifting > 10 lbs Dressing / Incision Call your doctor if your incision/area has: Sudden Increased Bleeding and Swelling at the incision site Call your doctor if you observe: Fever of 101 or Higher Cleanse incision/area with: Keep Dressing Clean & Dry Catheter: Damico to leg bag and Damico to large bag Drain: [place] Follow Up Care Please Follow Up With: Andrew García MD When: next Test Results: Test results from this visit will be discussed in further detail at your follow-up appointment, if applicable. Discharge Plan Admission Primary Reason for Your Visit: bladder surgery and turp Attending Provider: Andrew García Primary Care Provider: Denton Gardner Discharge Orders/Prescriptions Prescriptions: New ciprofloxacin HCl [Cipro] 500 mg tablet 500 mg PO BID Qty: 14 0RF docusate sodium [Colace] 100 mg capsule 100 mg PO BID Qty: 20 0RF oxycodone-acetaminophen 5-325 mg tablet 1 tab PO Q6H PRN (Reason: pain) 7 Days Qty: 14 0RF Continued turmeric root extract 500 mg capsule 500 mg PO DAILY lisinopril 10 mg Tablet 10 mg PO DAILY multivitamin Capsule 1 cap PO DAILY rnqzstuszbu-xjqaobcjl-abu C-Mn 500-400 mg Capsule 1 cap PO DAILY lutein 20 mg Capsule 20 mg PO DAILY ferrous sulfate 27 mg iron tablet 65 mg PO DAILY potassium 75 mg Tablet PO calcium 100 mg Capsule PO Held aspirin 81 mg Tablet 81 mg PO DAILY Hold Instructions: Resume on 08/24/21. Discontinued tamsulosin [Flomax] 0.4 mg capsule 0.4 mg PO QHS Referrals / Follow Up: Andrew García MD [STAFF PHYSICIAN] - Detnon Gardner MD [Primary Care Provider] - Disposition Disposition (needs filled in before D/C Order can be placed): Home, Self Care
[2021-08-10] MEDS: Lubricating Jelly 60 GM Tube 30 GM (14:30)
--- NOTE | 2021-08-10 15:44 | OP.PCM_ITS ---
Report of Operation Date of Procedure: 08/10/21 Pre-Operative Diagnosis: Large right bladder diverticulum and BPH with obstruct ion Post-Operative Diagnosis: The same Surgery/Procedure Performed:: Transurethral section of the prostate, robotic assisted bladder diverticulectomy, cystoscopy and right ureteral catheter placement Description of Surgical Findings:: In the preoperative setting I discussed with the patient how the surgery would b e done with expect afterwards. We discussed how a prostate resection is done and we discussed the risk of the surgery including, bleeding, infection, retrograde ejaculation, changes with ejaculation or intercourse,. We discussed the possibility that the resection of the prostate may not alleviate his urinary symptoms. We discussed the small risk of developing scar tissue along the urethral channel and strictures. We also discussed the chance of the prostate could grow back and he may need further surgery or treatment in the future for prostate problems. Patient was taken back to the operating room, timeout procedure was performed, he was identified and marked and placed on the operating room table. He underwent general anesthesia. He was placed in dorsolithotomy position. Penis and testicles were prepped and draped in usual sterile fashion. Went into the bladder using the visual obturator with a resectoscope. Once inside the bladder identified the right and left ureteral orifice. I then identified the prostate and the anatomy of the prostate. I marked out the area of the sphincter and the verumontanum was identified. I then proceeded with the prostate resection first resected the median lobe. And then resected the right lobe of the prostate. Then to resect the left lobe of the prostate. I then resected the apical tissue of the prostate. This was a complete resection of all obstructive tissue to improve voiding and relieve obstruction. I then made sure that there was no injury to the sphincter or the verumontanum was still intact. At the end of the resection all the chips were Ellik out of the bladder. I then identified the left and right ureteral orifice and these were confirmed to be in good position and effluxing and not injured. Then I went back into the bladder using a 21 Lebanese rigid cystourethroscope with a 30 degree lens entire length of the urethra was clear the sphincter had been spared during the resection of the prostate, nice coapting tissue, I then identified the right ureteral orifice that was next to the right bladder diverticulum and advanced a Pollick catheter up the right ureteral orifice over the Glidewire we then left this in place and then proceeded with the robotic surgery to remove the bladder diverticulum. The abdomen was already prepped and draped in the usual sterile fashion, infiltrated the umbilicus with lidocaine made a small incision in the umbilicus and then placed my camera trocar through the umbilicus right arm trocar left arm trocar in the second left arm trocar and then 8 mm air seal port. The bladder was then this distended this then allowed the visualization of the very large diverticulum that was pushing on the peritoneum on the right side of the bladder I then incised the peritoneum and opened up the fat and then dissected down to the diverticular sac I then dissected off the sac from the lateral wall anterior wall posterior wall all the way until I reached the os where the sac was conne cted to the bladder and then we excised the diverticular Clayton sac off the os I then excised the sac further and then we pulled the sac out and put it into a grasper and pulled it out to the trocar then we could see the very large opening into the bladder I closed this first in 2 layers of the first layer was a 2-0 Vicryl in interrupted fashion and then the second layer was 3-0 Vicryl with a continuous fashion to close the opening of the bladder into the diverticulum the diverticulum has been removed the opening into the diverticulum was closed we did a test to make sure that it was watertight we filled the bladder up with 240 cc of there is no leakage from the site that we closed I then closed the peritoneum where I had opened up to get to the diverticular sac. And then all the ports were removed I did closed the umbilical port with a stitch using 0 Vicryl stitch and then we closed all the other ports with subcuticular stitches we did closed the fascia in the umbilical port since he was so thin to prevent hernia. After the surgery was done I then removed the Pollick catheter and the patient anesthetic was reversed and is taken back to PACU in good place we left the Wolfe catheter in place it was a 20 Lebanese Wolfe catheter draining the bladder he will go home with a catheter for a week to let it heal and then will take the catheter out for voiding trial next week. Surgeon: Andrew García Type of Anesthesia: General Drains: 20 fr wolfe
[2021-08-10] MEDS: Ketorolac 15 MG/ML Vial IV ×2 (16:28→23:13)
[2021-08-10] MEDS: Lactated Ringers 1,000 ML 125 ML IV ×2 (16:41→23:13)
[2021-08-10] MEDS: Acetaminophen 325 MG Suppository RC (20:34)
[2021-08-10] MEDS: Ciprofloxacin 500 MG Tablet PO (21:39)
[2021-08-11] MEDS: Acetaminophen 325 MG Suppository RC (02:34)
[2021-08-11 03:15] VITALS: BP 164/93; PULSE 72; RESP 17; TEMP 36.8; O2SAT 98
[2021-08-11] MEDS: Ketorolac 15 MG/ML Vial IV ×2 (05:23→11:08)
--- NOTE | 2021-08-11 07:29 | PCM.PN.BLA ---
Progress Note Status post surgery for TURP and removal of bladder diverticulum he can go home today with a Damico catheter given instruction to call my office next week to have the catheter removed.
[2021-08-11 08:46] VITALS: BP 179/97; PULSE 73; RESP 20; TEMP 36.6; O2SAT 100
[2021-08-11] MEDS: Lisinopril 10 MG Tablet PO (09:08)
[2021-08-11] MEDS: oxyCODONE 5 MG Tablet PO (09:30)
[2021-08-11] MEDS: Ciprofloxacin 500 MG Tablet PO (09:30)
[2021-08-11] MEDS: 0.9% Saline Lock 10 ML Syringe IV (11:08)
== END 2021-08-11 13:08 | disposition home or self-care (01) ==
LOC: MS3 08-11 06:21 → SDC 08-11 06:26 → MS3 08-11 06:26
PROVIDERS: Anesthesiology; Admitting Provider Urology; PCP Family Medicine; Referring Provider Urology; Visit Provider Urology
PROC: 0TBB4ZZ Excision of Bladder, Percutaneous Endoscopic Approach (ICD-10-PCS; CPT 51999; principal; 2021-08-10 12:15)
PROC: (CPT 52601; 2021-08-10 12:15)
DX: N40.1 Benign prostatic hyperplasia with lower urinary tract symptoms (principal); F17.210 Nicotine dependence, cigarettes, uncomplicated; I10 Essential (primary) hypertension; R33.8 Other retention of urine; N13.9 Obstructive and reflux uropathy, unspecified; N32.3 Diverticulum of bladder; Z79.899 Other long term (current) drug therapy; Z79.82 Long term (current) use of aspirin; M19.90 Unspecified osteoarthritis, unspecified site
CPT/HCPCS: 52601; S2900; 52305; 00914; 36415; 80048; 88305; 96361; 96374; 96376; 99218; 99406; J7120; A4216; C1769; G0378; J2405

== ENCOUNTER → 2021-10-19 | Outpatient (CLI) | payer BC, SELFPAY ==
--- NOTE | 2021-10-19 09:00 | CDU_ITS ---
Reason For Study: CAROTID STENOSIS Rt. Velocities/BP Lt. Velocities/BP Prox CCA 96.2/16.8 cm/sec. Prox CCA 121.6/15.7 cm/sec. Mid CCA 92.3/22.0 cm/sec. Mid CCA 119.8/15.7 cm/sec. Dist CCA 121.7/19.4 cm/sec. Dist CCA 83.0/15.5 cm/sec. Prox ICA 96.5/24.1 cm/sec. Prox ICA 64.9/12.2 cm/sec. Mid ICA 66.6/17.1 cm/sec. Mid ICA 145.4/34.0 cm/sec. Dist ICA 99.0/26.5 cm/sec. Dist ICA 119.1/29.7 cm/sec. Rt. ICA/CCA = 99.0/92.3=1.07. Lt. ICA/CCA = 145.4/119.8=1.21. Prox ECA 187.8/16.7 cm/sec. Prox ECA 96.1/13.9 cm/sec. Rt. Vert. 79.3/8.1 cm/sec. Lt. Vert. 65.5/13.8 cm/sec. Right Extracranial There is heterogeneous, irregular atherosclerotic plaque noted in the right common carotid artery. There is heterogeneous, irregular atherosclerotic plaque noted in the right internal carotid artery. There is homogeneous, smooth atherosclerotic plaque noted in the right external carotid artery. Antegrade flow is noted in the right vertebral artery. Left Extracranial There is heterogeneous, smooth atherosclerotic plaque noted in the left common carotid artery. There is heterogeneous, irregular atherosclerotic plaque noted in the left internal carotid artery. The atherosclerotic plaque causes acoustic shadowing. There is homogeneous, irregular atherosclerotic plaque noted in the left external carotid artery. Antegrade flow is noted in the left vertebral artery. Procedure Carotid Duplex [id number]. Exam performed in department. Image #49 is the LT MID ICA. VL/Carotid Duplex Ultrasound Interpretation Summary April 13 postoperative changes of the right carotid bulb and proximal internal c arotid artery with less than 50% stenosis. Less than 50% stenosis right external carotid artery Irregular calcific plaque at the proximal left internal carotid artery with 50 to 69% stenosis. Less than 50% stenosis left external carotid artery Patent and antegrade vertebral arteries bilaterally No changes on the right from the previous examination of May 13, 2021 and the change on the left from February 25, 2021 Ordering Physician: Harpreet Mitchell Referring Physician: Denton Gardner Performed By: Aileen Rausch, BRANDT, RVT
== END | disposition home or self-care (01) ==
LOC: CVS 08:55
PROVIDERS: PCP Family Medicine; Referring Provider Surgery; Visit Provider Surgery
DX: I65.23 Occlusion and stenosis of bilateral carotid arteries (principal)
CPT/HCPCS: 93880

== ENCOUNTER → 2022-03-22 | Outpatient (CLI) | payer BC, SELFPAY ==
[2022-03-22 15:38] LABS: Absolute Lymphocyte Count 1.33 X10^3/uL (0.83-4.51); Absolute Neutrophil Count 4.1 X10^3/uL (2.0-7.7); Basophil# 0.04 X10^3/uL; Basophil% 0.6 % (0-1); Eosinophil# 0.06 X10^3/uL; Eosinophils% 0.9 % (0-5); Hematocrit 30.7 % (40-54); Hemoglobin 10.9 g/dL (13.0-16.5); Lymphocyte # 1.33 X10^3/ul (0.83-4.51); Lymphocyte % 20.8 % (19-41); Mean Corp Hgb Conc 35.5 g/dL (32-36); Mean Corpuscular Volume 98.7 fL (80-94); Mean Platelet Vol. 8.2 fl (6.2-12.0); Monocyte# 0.81 X10^3/uL; Monocyte% 12.7 % (0-10); NRBC Flagged by Analyzer 0 % (0-5); Neutrophil # 4.12 X10^3/uL (2.7-7.7); Neutrophil % 64.7 % (47-70); Platelet Count 249 K/mm3 (150-450); RBC Distribution Width CV 12.6 % (11.6-14.6); RBC Distribution Width SD 45.3 fl (35.1-43.9); Red Blood Count 3.11 M/mm3 (4.6-6.2); White Blood Count 6.4 K/mm3 (4.4-11.0)
[2022-03-22 15:56] LABS: Erythrocyte Sedimentation Rate 10 mm/hr (0-20)
[2022-03-22 16:21] LABS: Synovial Fld Mononuclear WBC # 0.042 10^3/ul; Synovial Fld Polynuclear WBC # 0.018 10^3/uL
[2022-03-22 16:40] LABS: CRP < 2.90 mg/L (0.0-3.0)
[2022-03-22 18:01] LABS: RBC /Synovial Fluid 0.005 10^6/uL (0)
[2022-03-22 18:33] LABS: Lymph 30 %; Monocyte /Synovial Fluid 28 %; Neutrophil 14 % (0-25); Other Cell /Synovial Fluid 28 %
[2022-03-22 18:34] LABS: AUTO B FLUID DILUENT BKGD CT WBC <0.1 RBC <0.01 (W<.1,R<.01); Source / Synovial Fluid RIGHT KNEE
[2022-03-22 18:35] LABS: Color / Synovial Fluid YELLOW/PINK (Pale Yellow)
[2022-03-22 18:36] LABS: Appearance /Synovial Fluid Cloudy (CLEAR); Body Fluid QC Type(s) BF1Q
[2022-03-23 13:59] LABS: Pathologist Comment Reviewed
== END | disposition home or self-care (01) ==
LOC: LAB 14:34
PROVIDERS: PCP Family Medicine; Visit Provider Specialist
DX: Z96.651 Presence of right artificial knee joint (principal)
CPT/HCPCS: 36415; 85025; 85652; 86140; 87015; 87070; 87075; 87102; 87116; 87205; 87206; 89050; 89051

== ENCOUNTER → 2022-04-21 | Outpatient (CLI) | payer BC, SELFPAY ==
--- NOTE | 2022-04-21 09:05 | CDU_ITS ---
Reason For Study: Carotid stenosis Rt. Velocities/BP Lt. Velocities/BP Prox CCA 94.9/20.1 cm/sec. Prox CCA 113.8/18.8 cm/sec. Mid CCA 94.9/23.4 cm/sec. Mid CCA 117.4/22.5 cm/sec. Dist CCA 121.9/20 cm/sec. Dist CCA 96.1/26.2 cm/sec. Prox ICA 59.7/14.6 cm/sec. Prox ICA 75.1/22.3 cm/sec. Mid ICA 93.8/32.2 cm/sec. Mid ICA 123.6/44.6 cm/sec. Dist ICA 92.7/31.1 cm/sec. Dist ICA 133.9/48 cm/sec. Rt. ICA/CCA = 0.99. Lt. ICA/CCA = 1.18. Prox ECA 137.5/24.3 cm/sec. Prox ECA 85.1/12.6 cm/sec. Rt. Vert. 35.2/7.2 cm/sec. Lt. Vert. 52/16.8 cm/sec. Right Extracranial There is heterogeneous, irregular atherosclerotic plaque noted in the right common carotid artery. There is heterogeneous, smooth atherosclerotic plaque noted in the right internal carotid artery. There is homogeneous, smooth atherosclerotic plaque noted in the right external carotid artery. Antegrade flow is noted in the right vertebral artery. Left Extracranial There is heterogeneous, smooth atherosclerotic plaque noted in the left common carotid artery. There is heterogeneous, irregular atherosclerotic plaque noted in the left internal carotid artery. There is heterogeneous, irregular atherosclerotic plaque noted in the left external carotid artery. Antegrade flow is noted in the left vertebral artery. Procedure Carotid Duplex [id number]. This is a Carotid Duplex examination using B-mode, color flow and specral Doppler. Exam performed in department. VL/Carotid Duplex Ultrasound Interpretation Summary Postoperative changes of the right carotid bulb and proximal internal carotid a rtery with less than 50% stenosis Less than 50% stenosis right external carotid artery Irregular calcific plaque at the proximal left internal carotid artery with 50 to 69% stenosis. Less than 50% stenosis left external carotid artery Patent and antegrade vertebral arteries bilaterally No change from the previous examination of October 19, 2021 Ordering Physician: Harpreet Mitchell Referring Physician: Denton Gardner MD Performed By: Елена Branch RCS
== END | disposition home or self-care (01) ==
LOC: CVS 09:05
PROVIDERS: PCP Family Medicine; Visit Provider Surgery
DX: I65.29 Occlusion and stenosis of unspecified carotid artery (principal)
CPT/HCPCS: 93880

== ENCOUNTER 2022-12-12 16:24 | Outpatient (CLI) | payer BC, SELFPAY ==
[2022-12-12 17:58] LABS: PSA,Total- Diagnostic 0.18 ng/mL (0.0-4.0)
== END 2022-12-12 23:59 | disposition home or self-care (01) ==
LOC: LAB 16:25
PROVIDERS: PCP Family Medicine; Referring Provider Urology; Visit Provider Urology
DX: R97.20 Elevated prostate specific antigen [PSA] (principal)
CPT/HCPCS: 36415; 84153

== ENCOUNTER → 2023-04-09 | Outpatient (CLI) | payer BC, SELFPAY ==
[2023-04-09 17:11] LABS: Absolute Lymphocyte Count 1.02 X10^3/uL (0.83-4.51); Absolute Neutrophil Count 4.8 X10^3/uL (2.0-7.7); Basophil# 0.04 X10^3/uL; Basophil% 0.6 % (0-1); Eosinophil# 0.07 X10^3/uL; Hematocrit 33.1 % (40-54); Hemoglobin 11.7 g/dL (13.0-16.5); Lymphocyte # 1.02 X10^3/ul (0.83-4.51); Lymphocyte % 15.2 % (19-41); Mean Corp Hgb Conc 35.3 g/dL (32-36); Mean Corpuscular Hgb 33.6 pg (27.0-32.0); Mean Corpuscular Volume 95.1 fL (80-94); Mean Platelet Vol. 7.8 fl (6.2-12.0); Monocyte# 0.75 X10^3/uL; Monocyte% 11.2 % (0-10); NRBC Flagged by Analyzer 0 % (0-5); Neutrophil # 4.76 X10^3/uL (2.7-7.7); Neutrophil % 71.1 % (47-70); Platelet Count 308 K/mm3 (150-450); RBC Distribution Width CV 13.7 % (11.6-14.6); RBC Distribution Width SD 47.6 fl (35.1-43.9); Red Blood Count 3.48 M/mm3 (4.6-6.2); White Blood Count 6.7 K/mm3 (4.4-11.0)
[2023-04-09 17:21] LABS: Erythrocyte Sedimentation Rate 26 mm/hr (0-20)
== END | disposition home or self-care (01) ==
LOC: LAB 16:39
PROVIDERS: PCP Family Medicine; Referring Provider Specialist; Visit Provider Specialist
DX: T84.032A Mechanical loosening of internal right knee prosthetic joint, initial encounter (principal); M25.461 Effusion, right knee; Z96.651 Presence of right artificial knee joint
CPT/HCPCS: 36415; 85025; 85652; 86140

== ENCOUNTER → 2023-04-12 | Outpatient (CLI) | payer BC, SELFPAY ==
[2023-04-12 14:49] LABS: Synovial Fld Mononuclear WBC # 0.195 10^3/ul; Synovial Fld Mononuclear WBC % 72.7 %; Synovial Fld Polynuclear WBC # 0.073 10^3/uL; Synovial Fld Polynuclear WBC % 27.3 %
[2023-04-12 15:02] LABS: RBC /Synovial Fluid 0.012 10^6/uL (0)
[2023-04-12 15:41] LABS: AUTO B FLUID DILUENT BKGD CT WBC <0.1 RBC <0.01 (W<.1,R<.01); Appearance /Synovial Fluid Clear (CLEAR); Color / Synovial Fluid Red (Pale Yellow); Lymph 32 %; Monocyte /Synovial Fluid 13 %; Neutrophil 54 % (0-25); Other Cell /Synovial Fluid 1 %; Source / Synovial Fluid RIGHT KNEE
[2023-04-12 15:42] LABS: Body Fluid QC Type(s) BF1Q
[2023-04-13 14:28] LABS: Pathologist Comment Reviewed
== END | disposition home or self-care (01) ==
LOC: LABSPEC 13:37
PROVIDERS: PCP Family Medicine; Referring Provider Specialist; Visit Provider Specialist
DX: T84.032A Mechanical loosening of internal right knee prosthetic joint, initial encounter (principal); M25.461 Effusion, right knee; Z96.651 Presence of right artificial knee joint
CPT/HCPCS: 87015; 87070; 87075; 87101; 87116; 87205; 87206; 89050; 89051

== ENCOUNTER → 2023-04-23 | Outpatient (CLI) | payer BC, SELFPAY ==
--- NOTE | 2023-04-23 14:40 | CDU_ITS ---
Reason For Study: Carotid Stenosis Rt. Velocities/BP Lt. Velocities/BP Prox CCA 108/19 cm/sec. Prox CCA 164/30 cm/sec. Mid CCA 116/29 cm/sec. Mid CCA 140/30 cm/sec. Dist CCA 138/33 cm/sec. Dist CCA 113/21 cm/sec. Prox ICA 147/30 cm/sec. Prox ICA 190/63 cm/sec. Mid ICA 113/38 cm/sec. Mid ICA 153/50 cm/sec. Dist ICA 132/48 cm/sec. Dist ICA 124/41 cm/sec. Rt. ICA/CCA = 1.3. Lt. ICA/CCA = 1.36. Prox ECA 154/24 cm/sec. Prox ECA 97/15 cm/sec. Rt. Vert. 51/9 cm/sec. Lt. Vert. 77/18 cm/sec. Right Extracranial There is homogeneous, smooth atherosclerotic plaque noted in the right common carotid artery. There is heterogeneous, smooth atherosclerotic plaque noted in the right internal carotid artery. There is heterogeneous, irregular atherosclerotic plaque noted in the right external carotid artery. Antegrade flow is noted in the right vertebral artery. Left Extracranial There is heterogeneous, smooth atherosclerotic plaque noted in the left common carotid artery. There is heterogeneous, irregular atherosclerotic plaque noted in the left internal carotid artery. The atherosclerotic plaque causes acoustic shadowing. There is intimal thickening but no significant atherosclerotic plaque noted in the left external carotid artery. Antegrade flow is noted in the left vertebral artery. Procedure Carotid Duplex [id number]. This is a Carotid Duplex examination using B-mode, color flow and specral Doppler. Exam performed in department. VL/Carotid Duplex Ultrasound Interpretation Summary Widely patent postoperative change of the right carotid bulb and proximal inter nal carotid artery. Velocities are slightly elevated throughout although without clinical plaque. B ased upon velocity 50 to 69% stenosis of the right internal carotid artery Less than 50% stenosis right external carotid artery Dense calcific check with shadowing at the proximal left internal carotid arter y with 50 to 69% stenosis Less than 50% stenosis left external carotid artery Patent antegrade vertebral arteries bilaterally From the previous examination of April 21, 2022 velocities within bilateral int ernal carotid arteries are slightly elevated. Ordering Physician: Harpreet Mitchell Referring Physician: Denton Gardner Performed By: Oksana Wick, BRANDT, RVT
== END | disposition home or self-care (01) ==
LOC: CVS 14:39
PROVIDERS: PCP Family Medicine; Referring Provider Surgery; Visit Provider Surgery
DX: I65.29 Occlusion and stenosis of unspecified carotid artery (principal)
CPT/HCPCS: 93880

== ENCOUNTER → 2023-12-13 | Outpatient (CLI) | payer BC, SELFPAY ==
[2023-12-13 16:35] LABS: PSA,Total- Diagnostic 0.32 ng/mL (0.0-4.0)
== END | disposition home or self-care (01) ==
PROVIDERS: PCP Family Medicine; Referring Provider Urology; Visit Provider Urology
DX: R97.20 Elevated prostate specific antigen [PSA] (principal)
CPT/HCPCS: 36415; 84153

== ENCOUNTER → 2024-04-25 | Outpatient (CLI) | payer BC, SELFPAY ==
--- NOTE | 2024-04-25 08:40 | CDU_ITS ---
Reason For Study Reason For Study: Carotid Stenosis Rt. Velocities/BP Lt. Velocities/BP Prox CCA 147.2/21.2 cm/sec. Prox CCA 123.5/19.4 cm/sec. Mid CCA 97.9/19.4 cm/sec. Mid CCA 143.6/23.0 cm/sec. Dist CCA 76.0/15.7 cm/sec. Dist CCA 103.4/17.5 cm/sec. Prox ICA 123.5/21.2 cm/sec. Prox ICA 117.7/29.9 cm/sec. Mid ICA 85.1/24.8 cm/sec. Mid ICA 121.6/32.1 cm/sec. Dist ICA 88.8/26.7 cm/sec. Dist ICA 70.7/24.1 cm/sec. Rt. ICA/CCA = 1.26. Lt. ICA/CCA = 0.9. Prox ECA 112.5/17.5 cm/sec. Prox ECA 97.7/13.0 cm/sec. Rt. Vert. 38.6/6.9 cm/sec. Lt. Vert. 52.0/11.0 cm/sec. Right Extracranial There is heterogeneous, irregular atherosclerotic plaque noted in the right common carotid artery. There is heterogeneous, irregular atherosclerotic plaque noted in the right internal carotid artery. HX CEA. There is heterogeneous, irregular atherosclerotic plaque noted in the right external carotid artery. Antegrade flow is noted in the right vertebral artery. Left Extracranial There is heterogeneous, smooth atherosclerotic plaque noted in the left common carotid artery. There is heterogeneous, irregular atherosclerotic plaque noted in the left internal carotid artery. Acoustic shadowing does not allow adequate sampling of velocities in the bulb/prox portion of left internal carotid artery. There is heterogeneous, irregular atherosclerotic plaque noted in the left external carotid artery. The atherosclerotic plaque causes acoustic shadowing. Antegrade flow is noted in the left vertebral artery. Procedure Carotid Duplex [id number]. This is a Carotid Duplex examination using B-mode, color flow and specral Doppler. The exam was diagnostic. Exam performed in department. VL/Carotid Duplex Ultrasound Interpretation Summary Mild (<50%) stenosis right extracranial internal carotid. Mild (<50%) stenosis left extracranial internal carotid. Limited due to calcifi c shadowing. Patent and antegrade vertebrals bilaterally. Ordering Physician: Kenny Siddiqui Referring Physician: Denton Gardner Performed By: Duran Wilson RVT
== END | disposition home or self-care (01) ==
LOC: CVS 08:38
PROVIDERS: PCP Family Medicine; Referring Provider Surgery Trauma Surgery; Visit Provider Surgery Trauma Surgery
DX: I65.29 Occlusion and stenosis of unspecified carotid artery (principal)
CPT/HCPCS: 93880

== ENCOUNTER → 2024-05-08 | Outpatient (CLI) | payer BC, SELFPAY ==
[2024-05-08 11:39] LABS: Platelet Count 307 K/mm3 (150-450)
[2024-05-08 11:52] LABS: Prothrombin Time (Protime)PT. 13.3 SECONDS (11.7-14.9)
[2024-05-08 11:53] LABS: Partial Thromboplast Time 31.6 Seconds (24.1-36.2)
== END | disposition home or self-care (01) ==
LOC: PAVLAB 11:25
PROVIDERS: PCP Family Medicine; Referring Provider Internal Medicine Critical Care Medicine; Visit Provider Internal Medicine Critical Care Medicine
DX: R91.1 Solitary pulmonary nodule (principal); F17.211 Nicotine dependence, cigarettes, in remission
CPT/HCPCS: 36415; 85049; 85610; 85730

== ENCOUNTER → 2024-05-14 | Outpatient (CLI) | payer BC, SELFPAY | END | disposition home or self-care (01) | LOC: PSN 06:50 | PROVIDERS: PCP Family Medicine; Referring Provider Internal Medicine Critical Care Medicine; Visit Provider Internal Medicine Critical Care Medicine | DX: R91.1 Solitary pulmonary nodule (principal); F17.211 Nicotine dependence, cigarettes, in remission | CPT/HCPCS: 94060; 94726; 94729 ==

== ENCOUNTER 2024-06-23 10:07 | Inpatient (IN) | payer BC, SELFPAY ==
--- NOTE | 2024-06-10 06:57 | EKG12_ITS ---
Test Reason : PREOP Blood Pressure : */* mmHG Vent. Rate : 71 BPM Atrial Rate : 71 BPM P-R Int : 138 ms QRS Dur : 92 ms QT Int : 378 ms P-R-T Axes : 54 75 75 degrees QTcB Int : 410 ms Normal sinus rhythm Minimal voltage criteria for LVH, may be normal variant Borderline ECG When compared with ECG of 08-Apr-2021 09:13, No significant change was found Confirmed by WILL NELSON, TRACEY ([id number]), online content editor SUKI COELLO ([id number]) on 06/11/2024 1:14:38 PM Referred By: BESSIE Confirmed By: TRACEY SOLIS MD
[2024-06-10 07:42] LABS: Hematocrit 32.6 % (40-54); Hemoglobin 11.2 g/dL (13.0-16.5); Mean Corp Hgb Conc 34.4 g/dL (32-36); Mean Corpuscular Hgb 32.9 pg (27.0-32.0); Mean Corpuscular Volume 95.9 fL (80-94); Mean Platelet Vol. 8.3 fl (6.2-12.0); Platelet Count 247 K/mm3 (150-450); RBC Distribution Width SD 45.1 fl (35.1-43.9); White Blood Count 6.2 K/mm3 (4.4-11.0)
[2024-06-10 08:18] LABS: Anion Gap 10 (5-15); BUN 14 mg/dL (4-19); BUN/Creat Ratio 20.4 RATIO (10-20); Calcium,Total 9.2 mg/dL (7.6-11.0); Carbon Dioxide 23.5 mmol/L (21.0-32.0); Chloride 95 mmol/L (98-108); Creatinine, Serum 0.68 mg/dL (0.70-1.20); EST Glomerular Filtration Rate 108 (>60); Glucose 89 mg/dL (70-99); Potassium 4.3 mmol/L (3.3-5.1); Sodium Level 129 mmol/L (133-145)
--- NOTE | 2024-06-10 15:53 | PAT.ANE_ITS ---
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 When Was Last Pacemaker Check QUESTION #4 FULL TEXT: You/Your Family Experience fever (hyperthermia) with Anesthesia Last Oral Intake Last Oral intake: Last Oral Intake NPO since Meds taken in AM with sips of water? 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 Female No 06/06/24 08:20 HX of Motion Sickness No 06/06/24 08:20 HX of N/V After Surgery No 06/06/24 08:20 Non-Smoker No 06/06/24 08:20 Duration of Surgery greater Yes 06/06/24 08:20 than 60 minutes Number of Risk Factors 1 06/06/24 08:20 PONV Score Low Risk 06/06/24 08:20 Height & Weight Height & Weight: Anesthesia: Height & Weight Height 5 ft 10 in 05/08/24 08:37 Respiratory Assessment Respiratory Assessment - mandarin chinese teacher: Respiratory Tract Infection Hx - mandarin chinese teacher Hx Respiratory Tract Infection No 06/06/24 08:20 STOP Sleep Apnea STOP Sleep Apnea - mandarin chinese teacher: STOP Sleep Apnea - mandarin chinese teacher Hx Hypertension Yes: CONTROLLED WITH MEDS 06/06/24 08:20 Hx Sleep Apnea No 06/06/24 08:20 CPAP No 08/10/21 15:56 BIPAP Do you snore loudly (louder No 06/06/24 08:20 than talking or can be heard Do you often feel tired/ No 06/06/24 08:20 fatigued/ sleepy during daytime? Has anyone observed you stop No 06/06/24 08:20 breathing during sleep? STOP Results Negative 06/06/24 08:20 QUESTION #5 FULL TEXT : Do you snore loudly (louder than talking or can be heard through closed doors)? 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 Tobacco Use Smoking Status Former smoker 06/06/24 08:20 Hx Tobacco Use Yes 06/06/24 08:20 Years Smoking Packs Smoked per Day Smoking Cessation Date was Yes - quit smoking within 15 06/06/24 08:20 within the last 15 years years Hx Smoking Cessation Date Hx Smoking Cessation Yes 06/06/24 08:20 Counseling Hematologic Medial History Hematologic Hx - mandarin chinese teacher: Hematologic Medical Hx - bladder blower Hx of Blood Transfusion No 06/06/24 08:20 Hx of Transfusion in last 3 No 06/06/24 08:20 Months Date of Last Transfusion (if within last 3 months) Ever experience any problems No 06/06/24 08:20 with transfusion(s)? Specify any problems Hx of Preganancy in last 3 N/A 06/06/24 08:20 Months Nurse Filling Out Transfusion DSCHRIBER 06/06/24 08:20 & Questions: Date: 06/06/24 06/06/24 08:20 Time: 08:23 06/06/24 08:20 Patient unable to answer at this time (ie. confused, unrespo /Reproduction History /Reproductive History - mandarin chinese teacher: /Reproductive Hx- mandarin chinese teacher Hx Now No 06/06/24 08:20 Gestational Age (in weeks): EDC: Hx Hx Para Hx Section SAB No 06/06/24 08:20 [facility] Medical History (Updated 06/06/24 @ 08:33 by Pita Thurman) High cholesterol TIA (transient ischemic attack) COPD (chronic obstructive pulmonary disease) Shortness of breath on exertion History of echocardiogram Carotid stenosis Wears glasses Wears dentures Alcohol use Arthritis Low iron Back pain Smoker History of edema Carotid stenosis, bilateral Carotid stenosis, bilateral Tobacco abuse counseling Tobacco abuse Hypertension Osteoarthritis, knee Swelling of knee joint, right Wound dehiscence, surgical Nonhealing surgical wound Home Medications ?Medication ?Instructions ?Recorded ?Last Taken ?Type aspirin 81 mg tablet 81 mg PO DAILY SUPPLEMENT 08/09/21 History erzmhhxnqak-zobdlfdhz-daj C-Mn 500 1 cap PO DAILY SUPP LEMENT 12/14/20 08/09/21 History mg-400 mg capsule lutein 20 mg capsule 20 mg PO DAILY SUPPLEMENT 08/09/21 History multivitamin 1 cap PO DAILY SUPPLEMENT 08/09/21 History ferrous sulfate 27 mg iron tablet 65 mg PO DAILY SUPPL EMENT 03/14/21 08/09/21 History calcium 100 mg capsule 600 mg PO DAILY SUPPLEMENT 0 08/03/21 08/09/21 History potassium 75 mg tablet 99 mg PO DAILY SUPPLEMENT Unknown History amlodipine 5 mg tablet 5 mg PO QDAY BP 05/01/24 Unk nown History lisinopril 20 mg tablet 20 mg PO QDAY BP 05/08/24 Un known History rosuvastatin 10 mg tablet 20 mg PO QHS CHOLESTEROL Unknown History varenicline tartrate 1 mg tablet 1 mg PO DAILY NICOTIN E 05/08/24 Unknown History fluticasone fur. 200 mcg-umeclid 1 inh inhalation GARRICK Y COPD 06/06/24 Unknown History 62.5 mcg-vilant 25 mcg inhalat.powder (Trelegy Ellipta) Allergy/AdvReac Type Severity Reaction Status Date / Time No Known Allergies Allergy Verified 06/06/24 08:12 Family History Father Myocardial infarction Heart disease Mother Diabetes Hypertension CVA (cerebral vascular accident) Brother Colon cancer Hypertension Surgical History (Updated 06/06/24 @ 08:33 by Pita Thurman) History of cystoscopy History of right-sided carotid endarterectomy History of hernia surgery History of right knee joint replacement History of colonoscopy Social History Smoking Status: Former smoker alcohol intake: former details: 4 beers per day substance use type: does not use Audit: Pertinent Findings Pertinent Findings EKG Perinent findings: 04/08/2021. Normal sinus rhythm. LVH. Echo (EF%) pertinent findings: March 26, 2024. Ejection fraction 50 to 55%. Normal right ventricular global systolic function. No aortic stenosis noted. Additional pertinent findings: Latest sodium done on June 10, 2024 was 129. Recommendation Anesthesia Recommendation Anesthesia recommendation: F/U recommended (Patient sodium is under 130. Patient needs to increase salt in his diet and recheck sodium prior to surgery.)
[2024-06-17 17:57] LABS: Anion Gap 10 (5-15); BUN 20 mg/dL (4-19); BUN/Creat Ratio 26.2 RATIO (10-20); Calcium,Total 9.4 mg/dL (7.6-11.0); Carbon Dioxide 24.3 mmol/L (21.0-32.0); Chloride 96 mmol/L (98-108); Creatinine, Serum 0.76 mg/dL (0.70-1.20); EST Glomerular Filtration Rate 104 (>60); Glucose 85 mg/dL (70-99); Potassium 4.3 mmol/L (3.3-5.1); Sodium Level 130 mmol/L (133-145)
--- NOTE | 2024-06-18 08:55 | PAT.ANESEVAL ---
Pre-Assessment Diagnosis/Proposed Procedure Planned Operative Procedure(s): LEFT CAROTID ENDARTERECTOMY Anesthesia History Anesthesia History - field account director: Anesthesia History - field account director Hx Hospitalization Yes: 03/25/2024 FOR SERIES OF 06/06/24 08:20 TIA'S Any Problems With Anesthesia No 06/06/24 08:20 Cholinesterase deficiency No 06/06/24 08:20 You/Your Family Experience No 06/06/24 08:20 fever (hyperthermia) with Relationship Recent Exposure to Contagious No 08/10/21 11:06 Disease Does patient have nerve No 06/06/24 08:20 stimulator Patient instructed to have device shut off --Does patient have Pacemaker or ICD? When Was Last Pacemaker Check QUESTION #4 FULL TEXT: You/Your Family Experience fever (hyperthermia) with Anesthesia Last Oral Intake Last Oral intake: Last Oral Intake NPO since Meds taken in AM with sips of water? Meds patient instructed to take am of surgery PONV PONV - field account director: PONV - field account director Female No 06/06/24 08:20 HX of Motion Sickness No 06/06/24 08:20 HX of N/V After Surgery No 06/06/24 08:20 Non-Smoker No 06/06/24 08:20 Duration of Surgery greater Yes 06/06/24 08:20 than 60 minutes Number of Risk Factors 1 06/06/24 08:20 PONV Score Low Risk 06/06/24 08:20 Height & Weight Height & Weight: Anesthesia: Height & Weight Height 5 ft 10 in 05/08/24 08:37 Respiratory Assessment Respiratory Assessment - field account director: Respiratory Tract Infection Hx - field account director Hx Respiratory Tract Infection No 06/06/24 08:20 STOP Sleep Apnea STOP Sleep Apnea - field account director: STOP Sleep Apnea - field account director Hx Hypertension Yes: CONTROLLED WITH MEDS 06/06/24 08:20 Hx Sleep Apnea No 06/06/24 08:20 CPAP No 08/10/21 15:56 BIPAP Do you snore loudly (louder No 06/06/24 08:20 than talking or can be heard Do you often feel tired/ No 06/06/24 08:20 fatigued/ sleepy during daytime? Has anyone observed you stop No 06/06/24 08:20 breathing during sleep? STOP Results Negative 06/06/24 08:20 QUESTION #5 FULL TEXT : Do you snore loudly (louder than talking or can be heard through closed doors)? 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 Specify any problems Hx of Preganancy in last 3 N/A 06/06/24 08:20 Months Nurse Filling Out Transfusion DSCHRIBER 06/06/24 08:20 & Questions: Date: 06/06/24 06/06/24 08:20 Time: 08:23 06/06/24 08:20 Patient unable to answer at this time (ie. confused, unrespo /Reproduction History /Reproductive History - field account director: /Reproductive Hx- field account director Hx Now No 06/06/24 08:20 Gestational Age (in weeks): EDC: Hx Hx Para Hx Section SAB No 06/06/24 08:20 [facility] Medical History (Updated 06/13/24 @ 12:57 by GIOVANNA Torres) High cholesterol TIA (transient ischemic attack) COPD (chronic obstructive pulmonary disease) Shortness of breath on exertion History of echocardiogram Carotid stenosis Wears glasses Wears dentures Alcohol use Arthritis Low iron Back pain Smoker History of edema Carotid stenosis, bilateral Carotid stenosis, bilateral Tobacco abuse counseling Tobacco abuse Hypertension Osteoarthritis, knee Swelling of knee joint, right Wound dehiscence, surgical Nonhealing surgical wound Home Medications ?Medication ?Instructions ?Recorded ?Last Taken ?Type aspirin 81 mg tablet 81 mg PO DAILY SUPPLEMENT 12/14/20 08/09/21 History [id number] C-Mn 500 1 cap PO DAILY SUPPLEMENT 12/14/20 08/09/21 History mg-400 mg capsule lutein 20 mg capsule 20 mg PO DAILY SUPPLEMENT 12/14/20 08/09/21 History multivitamin 1 cap PO DAILY SUPPLEMENT 12/14/20 08/09/21 History ferrous sulfate 27 mg iron tablet 65 mg PO DAILY SUPPLEMENT 03/14/21 08/09/21 History calcium 100 mg capsule 600 mg PO DAILY SUPPLEMENT 08/03/21 08/09/21 History potassium 75 mg tablet 99 mg PO DAILY SUPPLEMENT 05/03/23 Unknown History amlodipine 5 mg tablet 5 mg PO QDAY BP 05/01/24 Unknown History lisinopril 20 mg tablet 20 mg PO QDAY BP 05/08/24 Unknown History rosuvastatin 10 mg tablet 20 mg PO QHS CHOLESTEROL 05/08/24 Unknown History varenicline tartrate 1 mg tablet 1 mg PO DAILY NICOTINE 05/08/24 Unknown History fluticasone fur. 200 mcg-umeclid 1 inh inhalation DAILY COPD 06/06/24 Unknown History 62.5 mcg-vilant 25 mcg inhalat.powder (Trelegy Ellipta) Allergy/AdvReac Type Severity Reaction Status Date / Time No Known Allergies Allergy Verified 06/06/24 08:12 Family History Father Myocardial infarction Heart disease Mother Diabetes Hypertension CVA (cerebral vascular accident) Brother Colon cancer Hypertension Surgical History (Updated 06/06/24 @ 08:33 by Pita Thurman) History of cystoscopy History of right-sided carotid endarterectomy History of hernia surgery History of right knee joint replacement History of colonoscopy Social History Smoking Status: Former smoker alcohol intake: former details: 4 beers per day substance use type: does not use Audit: Pertinent Findings HISTORY of Pertinent Findings History of Pertinent Findings: EKG Pertinent Findings EKG Perinent findings 04/08/2021. Normal sinus 06/10/24 16:08 rhythm. LVH. Echo Pertinent Findings Echo (EF%) pertinent findings March 26, 2024. Ejection 06/10/24 16:04 fraction 50 to 55%. Normal right ventricular global systolic function. No aortic stenosis noted. Additional Pertinent Findings Additional pertinent findings Latest sodium done on 06/10/24 16:08 2024 was 129. Pertinent Findings Additional pertinent findings: Latest sodium done on 5/6/25 was 130. It is advisable that this improves prior to surgery, as a re-check on the day of surgery may result in cancellation. Would consult PCP for further management. Recommendation Anesthesia Recommendation Anesthesia recommendation: F/U recommended (Consult PCP for further management of sodium. Will need recheck on day of surgery. )
--- NOTE | 2024-06-18 11:57 | PAT.ANESEVAL ---
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 When Was Last Pacemaker Check QUESTION #4 FULL TEXT: You/Your Family Experience fever (hyperthermia) with Anesthesia Last Oral Intake Last Oral intake: Last Oral Intake NPO since Meds taken in AM with sips of water? Meds patient instructed to take am of surgery PONV PONV - breaker machine operator: PONV - breaker machine operator Female No 06/06/24 08:20 HX of Motion Sickness No 06/06/24 08:20 HX of N/V After Surgery No 06/06/24 08:20 Non-Smoker No 06/06/24 08:20 Duration of Surgery greater Yes 06/06/24 08:20 than 60 minutes Number of Risk Factors 1 06/06/24 08:20 PONV Score Low Risk 06/06/24 08:20 Height & Weight Height & Weight: Anesthesia: Height & Weight Height 5 ft 10 in 06/04/24 05:46 Respiratory Assessment Respiratory Assessment - breaker machine operator: Respiratory Tract Infection Hx - breaker machine operator Hx Respiratory Tract Infection No 06/06/24 08:20 STOP Sleep Apnea STOP Sleep Apnea - breaker machine operator: STOP Sleep Apnea - breaker machine operator Hx Hypertension Yes: CONTROLLED WITH MEDS 06/06/24 08:20 Hx Sleep Apnea No 06/06/24 08:20 CPAP No 08/10/21 15:56 BIPAP Do you snore loudly (louder No 06/06/24 08:20 than talking or can be heard Do you often feel tired/ No 06/06/24 08:20 fatigued/ sleepy during daytime? Has anyone observed you stop No 06/06/24 08:20 breathing during sleep? STOP Results Negative 06/06/24 08:20 QUESTION #5 FULL TEXT : Do you snore loudly (louder than talking or can be heard through closed doors)? 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 Specify any problems Hx of Preganancy in last 3 N/A 06/06/24 08:20 Months Nurse Filling Out Transfusion DSCHRIBER 06/06/24 08:20 & Questions: Date: 06/06/24 06/06/24 08:20 Time: 08:23 06/06/24 08:20 Patient unable to answer at this time (ie. confused, unrespo /Reproduction History /Reproductive History - breaker machine operator: /Reproductive Hx- breaker machine operator Hx Now No 06/06/24 08:20 Gestational Age (in weeks): EDC: Hx Hx Para Hx Section SAB No 06/06/24 08:20 [facility] Medical History (Updated 06/13/24 @ 12:57 by GIOVANNA Torres) High cholesterol TIA (transient ischemic attack) COPD (chronic obstructive pulmonary disease) Shortness of breath on exertion History of echocardiogram Carotid stenosis Wears glasses Wears dentures Alcohol use Arthritis Low iron Back pain Smoker History of edema Carotid stenosis, bilateral Carotid stenosis, bilateral Tobacco abuse counseling Tobacco abuse Hypertension Osteoarthritis, knee Swelling of knee joint, right Wound dehiscence, surgical Nonhealing surgical wound Home Medications ?Medication ?Instructions ?Recorded ?Last Taken ?Type aspirin 81 mg tablet 81 mg PO DAILY SUPPLEMENT 12/14/20 08/09/21 History [id number] C-Mn 500 1 cap PO DAILY SUPPLEMENT 12/14/20 08/09/21 History mg-400 mg capsule lutein 20 mg capsule 20 mg PO DAILY SUPPLEMENT 12/14/20 08/09/21 History multivitamin 1 cap PO DAILY SUPPLEMENT 12/14/20 08/09/21 History ferrous sulfate 27 mg iron tablet 65 mg PO DAILY SUPPLEMENT 03/14/21 08/09/21 History calcium 100 mg capsule 600 mg PO DAILY SUPPLEMENT 08/03/21 08/09/21 History potassium 75 mg tablet 99 mg PO DAILY SUPPLEMENT 05/03/23 Unknown History amlodipine 5 mg tablet 5 mg PO QDAY BP 05/01/24 Unknown History lisinopril 20 mg tablet 20 mg PO QDAY BP 05/08/24 Unknown History rosuvastatin 10 mg tablet 20 mg PO QHS CHOLESTEROL 05/08/24 Unknown History varenicline tartrate 1 mg tablet 1 mg PO DAILY NICOTINE 05/08/24 Unknown History fluticasone fur. 200 mcg-umeclid 1 inh inhalation DAILY COPD 06/06/24 Unknown History 62.5 mcg-vilant 25 mcg inhalat.powder (Trelegy Ellipta) Allergy/AdvReac Type Severity Reaction Status Date / Time No Known Allergies Allergy Verified 06/06/24 08:12 Family History Father Myocardial infarction Heart disease Mother Diabetes Hypertension CVA (cerebral vascular accident) Brother Colon cancer Hypertension Surgical History (Updated 06/06/24 @ 08:33 by Pita Thurman) History of cystoscopy History of right-sided carotid endarterectomy History of hernia surgery History of right knee joint replacement History of colonoscopy Social History Smoking Status: Former smoker alcohol intake: former details: 4 beers per day substance use type: does not use Audit: Pertinent Findings HISTORY of Pertinent Findings History of Pertinent Findings: EKG Pertinent Findings EKG Perinent findings 04/08/2021. Normal sinus 06/10/24 16:08 rhythm. LVH. Echo Pertinent Findings Echo (EF%) pertinent findings March 26, 2024. Ejection 06/10/24 16:04 fraction 50 to 55%. Normal right ventricular global systolic function. No aortic stenosis noted. Additional Pertinent Findings Additional pertinent findings Latest sodium done on 06/17/24 06/18/24 08:56 was 130. It is advisable that this improves prior to surgery, as a re-check on the day of surgery may result in cancellation. Would consult PCP for further management. Additional pertinent findings Latest sodium done on 06/10/24 16:08 2024 was 129. Recommendation Anesthesia Recommendation Anesthesia recommendation: OPTIMIZED for anesthesia
[2024-06-23] VITALS (25 sets, daily range): BP systolic 110–162; BP diastolic 43–80; PULSE 23–82; RESP 10–20; TEMP 36–36.9; O2SAT 96–100; BMI 21.9; BMI 23.6
[2024-06-23 06:23] LABS: Hematocrit 34.4 % (40-54); Hemoglobin 11.8 g/dL (13.0-16.5); Mean Corp Hgb Conc 34.3 g/dL (32-36); Mean Corpuscular Hgb 32.6 pg (27.0-32.0); Mean Platelet Vol. 7.9 fl (6.2-12.0); Platelet Count 282 K/mm3 (150-450); RBC Distribution Width SD 44.9 fl (35.1-43.9); Red Blood Count 3.62 M/mm3 (4.6-6.2)
[2024-06-23] MEDS: Lactated Ringers 1,000 ML 15 ML IV ×2 (06:27→11:10)
--- NOTE | 2024-06-23 06:48 | PCM.PRE.AN2 ---
ASA Classification* ASA Classification ASA Classification: 3 Assessment & Plan Anesthesia* Anesthesia Assessment Anesthesia Assessment: Discussed sedation and/or anesthesia options, risks, benefits, and alternatives with patient/parents/legal guardian/POA. Questions invited. The patient/parents/legal guardian/POA seems to understand and agrees to proceed with anesthesia plan. Reviewed the physical assessment, medical history, allergy history and patient home medications list prior to surgery/procedure/anesthetic and documented any changes. Performed airway and anesthesia risk assessments. Anesthesia Type Anesthesia Type: General (Patient is informed of additional arterial line to be started prior to surgery.) History Source History Obtained from:: Patient and Chart Anesthesia Focused Assessment* Temperature: 98.5 F Pulse Rate: 82 Blood Pressure: 162/80 Respiratory Rate: 16 Pulse Ox: 98 Oxygen Delivery Method: Room Air Airway Assessment Mouth opens: >3 cm Mallampati Score: III Teeth Condition: Dentures (Patient is full upper and lower dentures. They are out.) Neck Range of motion (ROM): Full ROM Focused Labs Anesthesia Preop lab: CBC WBC 7.0 K/mm3 (4.4-11.0) 06/23/24 05:46 06/23/24 RBC 3.62 M/mm3 (4.6-6.2) L 06/23/24 05:46 06/23/24 Hgb 11.8 g/dL (13.0-16.5) L 06/23/24 05:46 06/23/24 Hct 34.4 % (40-54) L 06/23/24 05:46 06/23/24 Plt Count 282 K/mm3 (150-450) 06/23/24 05:46 06/23/24 CHEMISTRY Potassium 4.3 mmol/L (3.3-5.1) 06/17/24 16:26 06/17/24 Sodium 130 mmol/L (133-145) L 06/17/24 16:26 06/17/24 BUN 20 mg/dL (4-19) H 06/17/24 16:26 06/17/24 Creatinine 0.76 mg/dL (0.70-1.20) 06/17/24 16:26 06/17/24 Glucose 85 mg/dL (70-99) 06/17/24 16:06/17/24 TSH 0.92 uIU/mL (0.358-3.74) 04/08/21 09:19 04/08/21 COAG PT 13.3 SECONDS (11.7-14.9) 05/08/24 11:28 05/08/24 Pre-Assessment Diagnosis/Proposed Procedure Planned Operative Procedure(s): LEFT CAROTID ENDARTERECTOMY Anesthesia History 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 When Was Last Pacemaker Check QUESTION #4 FULL TEXT: You/Your Family Experience fever (hyperthermia) with Anesthesia Last Oral Intake Last Oral intake: Last Oral Intake NPO since 03:00 06/23/24 06:07 Meds taken in AM with sips of Yes 06/23/24 06:07 water? Meds patient instructed to take am of surgery Any additional information?: Yes NPO since: 03:00 (Patient had black coffee at 3 AM.) Meds taken in AM with sips of water?: Yes PONV PONV - environmental attorney: PONV - environmental attorney Female No 06/06/24 08:20 HX of Motion Sickness No 06/06/24 08:20 HX of N/V After Surgery No 06/06/24 08:20 Non-Smoker No 06/06/24 08:20 Duration of Surgery greater Yes 06/06/24 08:20 than 60 minutes Number of Risk Factors 1 06/06/24 08:20 PONV Score Low Risk 06/06/24 08:20 Height & Weight Height & Weight: Anesthesia: Height & Weight Height 5 ft 10 in 06/23/24 06:07 Weight: 69.5 kg 06/23/24 06:07 Body Mass Index (BMI) 21.9 06/23/24 06:07 Respiratory Assessment Respiratory Assessment - environmental attorney: Respiratory Tract Infection Hx - environmental attorney Hx Respiratory Tract Infection No 06/06/24 08:20 STOP Sleep Apnea STOP Sleep Apnea - environmental attorney: STOP Sleep Apnea - environmental attorney Hx Hypertension Yes: CONTROLLED WITH MEDS 06/06/24 08:20 Hx Sleep Apnea No 06/06/24 08:20 CPAP No 08/10/21 15:56 BIPAP Do you snore loudly (louder No 06/06/24 08:20 than talking or can be heard Do you often feel tired/ No 06/06/24 08:20 fatigued/ sleepy during daytime? Has anyone observed you stop No 06/06/24 08:20 breathing during sleep? STOP Results Negative 06/06/24 08:20 QUESTION #5 FULL TEXT : Do you snore loudly (louder than talking or can be heard through closed doors)? 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 Specify any problems Hx of Preganancy in last 3 N/A 06/06/24 08:20 Months Nurse Filling Out Transfusion DSCHRIBER 06/06/24 08:20 & Questions: Date: 06/06/24 06/06/24 08:20 Time: 08:23 06/06/24 08:20 Patient unable to answer at this time (ie. confused, unrespo /Reproduction History /Reproductive History - environmental attorney: /Reproductive Hx- environmental attorney Hx Now No 06/06/24 08:20 Gestational Age (in weeks): EDC: Hx Hx Para Hx Section SAB No 06/06/24 08:20 Active Medications Active Medications: Current Medications Generic Name Dose Route Start Last Admin Trade Name Erwinq PRN Reason Stop Dose Admin Cefazolin Sodium 2 gm/ Sodium 110 mls @ 150 mls/hr 06/23/24 07:30 Chloride IV 06/23/24 08:13 INTRAOP ONE Lactated Ringer's 1,000 mls @ 15 mls/hr 06/23/24 06:00 06/23/24 06:27 IV 15 mls/hr .Q48H GABRIEL Administration Sodium Chloride 1,000 mls @ 1 mls/hr 06/23/24 06:41 IV .Q48H PRN Saline Flush PFSH Medical History High cholesterol TIA (transient ischemic attack) COPD (chronic obstructive pulmonary disease) Shortness of breath on exertion History of echocardiogram Carotid stenosis Wears glasses Wears dentures Alcohol use Arthritis Low iron Back pain Smoker History of edema Carotid stenosis, bilateral Carotid stenosis, bilateral Tobacco abuse counseling Tobacco abuse Hypertension Osteoarthritis, knee Swelling of knee joint, right Wound dehiscence, surgical Nonhealing surgical wound Home Medications ?Medication ?Instructions ?Recorded ?Last Taken ?Type aspirin 81 mg tablet 81 mg PO DAILY SUPPLEMENT 12/14/20 06/23/24 03:00 History [id number] C-Mn 500 1 cap PO DAILY SUPPLEMENT 12/14/20 06/22/24 History mg-400 mg capsule lutein 20 mg capsule 20 mg PO DAILY SUPPLEMENT 12/14/20 06/22/24 History multivitamin 1 cap PO DAILY SUPPLEMENT 12/14/20 06/22/24 History ferrous sulfate 27 mg iron tablet 65 mg PO DAILY SUPPLEMENT 03/14/21 06/22/24 History calcium 100 mg capsule 600 mg PO DAILY SUPPLEMENT 08/03/21 06/22/24 History potassium 75 mg tablet 99 mg PO DAILY SUPPLEMENT 05/03/23 06/22/24 History amlodipine 5 mg tablet 5 mg PO QDAY BP 05/01/24 06/23/24 03:00 History lisinopril 20 mg tablet 20 mg PO QDAY BP 05/08/24 06/23/24 03:00 History rosuvastatin 10 mg tablet 20 mg PO QHS CHOLESTEROL 05/08/24 06/22/24 History varenicline tartrate 1 mg tablet 1 mg PO DAILY NICOTINE 05/08/24 06/22/24 History fluticasone fur. 200 mcg-umeclid 1 inh inhalation DAILY COPD 06/06/24 06/22/24 History 62.5 mcg-vilant 25 mcg inhalat.powder (Trelegy Ellipta) Allergy/AdvReac Type Severity Reaction Status Date / Time No Known Allergies Allergy Verified 06/23/24 06:05 Family History Father Myocardial infarction Heart disease Mother Diabetes Hypertension CVA (cerebral vascular accident) Brother Colon cancer Hypertension Surgical History History of cystoscopy History of right-sided carotid endarterectomy History of hernia surgery History of right knee joint replacement History of colonoscopy Social History Smoking Status: Former smoker alcohol intake: former details: 4 beers per day substance use type: does not use Review of Systems (Anesthesia) ROS Narrative System reviewed and no additional complaints, except as documented.
--- NOTE | 2024-06-23 07:13 | PCM.HP.BLA ---
History and Physical Allergies No Known Allergies Allergy (Verified 05/29/24 15:28) Medications ?Medication ?Instructions ?Recorded ?Confirmed ?Type aspirin 81 mg tablet 81 mg PO DAILY SUPPLEMENT 12/14/20 05/29/24 History Held on 08/10/21. Instructions: Resume on 08/24/21. [id number] C-Mn 500 1 cap PO DAILY SUPPLEMENT 12/14/20 05/29/24 History mg-400 mg capsule lutein 20 mg capsule 20 mg PO DAILY SUPPLEMENT 12/14/20 05/29/24 History multivitamin 1 cap PO DAILY SUPPLEMENT 12/14/20 05/29/24 History ferrous sulfate 27 mg iron tablet 65 mg PO DAILY SUPPLEMENT 03/14/21 05/29/24 History calcium 100 mg capsule mg PO 08/03/21 05/29/24 History potassium 75 mg tablet 99 mg PO 05/03/23 05/29/24 History amlodipine 5 mg tablet 5 mg PO QDAY 05/01/24 05/29/24 History lisinopril 20 mg tablet 20 mg PO QDAY 05/08/24 05/29/24 History rosuvastatin 10 mg tablet 20 mg PO DAILY 05/08/24 05/29/24 History varenicline tartrate 1 mg tablet mg PO 05/08/24 05/29/24 History Have you fallen in the past year?: No PFSH Medical History Carotid stenosis Pressure ulcer Wears glasses Wears dentures Alcohol use Arthritis Low iron Back pain Smoker History of edema Carotid stenosis, bilateral Carotid stenosis, bilateral Tobacco abuse counseling Tobacco abuse Hypertension Osteoarthritis, knee Swelling of knee joint, right Wound dehiscence, surgical Nonhealing surgical wound Surgical History History of right-sided carotid endarterectomy History of hernia surgery History of right knee joint replacement History of colonoscopy Family History Father Myocardial infarction Heart diseaseMother Diabetes Hypertension CVA (cerebral vascular accident)Brother Colon cancer Hypertension Social History Smoking Status: Former smoker alcohol intake: former details: 4 beers per day substance use type: does not use HPI HPI HPI: EMILIE MCDONALD, is a 58 M who presents to the office today for follow up of left carotid stenosis with potential TIA in Mar. He had been followed with duplex that revealed moderate stenosis though there was calcific shadowing noted. He had a CTA at that demonstrated more severe disease, with 75% stenosis by my measurement. ROS General General: No weight change, appetite, fatigue, colon cancer, breast cancer or weakness HEENT HEENT: No difficulty swallowing, eye injury, eye surgery, swollen glands or hoarseness Endo Endocrine: No thyroid disease, diabetes mellitus, thyroid cancer, Hair loss, heat intolerance or cold intolerance Skin Skin: No rash or changing moles Musc Musculoskeletal: No back problems, arthritis, rheumatoid arthritis, gout or joint pain Cardio Cardiovascular: Yes high blood pressure; No murmur, pacemaker, heart disease, atrial fibrillation, heart attack, heart stent, palpitations, shortness of breath with exertion or chest pain Psych Psychiatric: No depression, anxiety or hearing voices Resp Respiratory: No shortness of breath, No sleep apnea, No cough, No COPD, No asthma, No emphysema and No wheezing Gastro Gastrointestinal: No abdominal pain, No nausea or vomiting, No diarrhea, No constipation, No blood in stool, No acid reflux, No hemorrhoids, No ulcers, No gallbladder problem and No black,tarry stools Daniel Hematologic: Yes blood thinners, No blood disorders, No bleeding, No anemia and No blood clots Additional Details: [id number] Neuro Neurologic: No system reviewed and no additional complaints, except as documented, No as per HPI, No abnormal gait, No abnormal hearing, No abnormal movements, No abnormal speech, No behavioral changes, No burning sensations, No confusion, No convulsions, Yes disequilibrium, Yes dizziness, No localized weakness, No frequent falls, No headache(s), No lack of coordination, No loss of vision, No memory loss, No numbness, Yes other visual disturbances, No radicular pain, No restless legs, No sensory deficit, No syncope, No tingling, No tremor(s), No weakness and No other Exam Const General: cooperative, healthy appearing, comfortable, no acute distress and well developed Nutritional Appearance: well nourished Orientation: alert, awake and oriented x3 HENMT Head: normocephalic and atraumatic Ears: hearing grossly normal bilaterally Nose: external nose normal Eyes General: appearance normal, both eyes and all related structures EOM: EOM intact bilaterally Neck Neck: normal visual inspection, full ROM, no lymphadenopathy and trachea midline Thyroid: thyroid normal Lymphatic: no lymphadenopathy noted Resp Effort & Inspection: normal respiratory effort, able to speak in complete sentences, symmetric chest movement, no audible wheezes, not labored, no stridor and no use of accessory muscles Auscultation: clear to auscultation bilaterally Cardio Rate: regular rate Rhythm: regular rhythm Heart Sounds: no murmurs Bruits: carotid bruit on the left Pulses: brachial pulses present and radial pulses present Skin General: no rashes or lesions noted and no erythema Wounds: no wounds Neuro Cranial Nerves: CN's II-XI intact bilaterally and EOM intact bilaterally Speech: speech normal Gait: normal gait Motor: strength 5/5 throughout Sensory Exam: no sensory deficits noted Psych Appearance: grossly normal and well kempt Mental Status: mental status grossly normal Mood: congruent mood Speech and Movement: speech and movement normal Thought Content: normal Judgment: judgment good Coding Level of Care Code Off vis,est,level 3 Diagnoses Bilateral carotid artery stenosis I65.23 Laterality: bilateral Assessment and Plan Assessment and Plan (1) Carotid stenosis: Status: Chronic Qualifiers: Laterality: bilateral Qualified Code(s): I65.23 - Occlusion and stenosis of bilateral carotid arteries Comment: CTA- images reviewed, 75% stenosis, dense/circumferential calcification Plan: -left CEA
--- NOTE | 2024-06-23 07:30 | PLAQ_PTH ---
PATIENT: EMILIE MCDONALD LOC: ICU U#:[id number] AGE/SX: 58/M ROOM: [place] [address] RE06/23/[address]: Dr. Kenny Siddiqui MD : 1965 BED: 1 DIS: 06/24/2024 SPEC #: [id number] RECD: 06/23/24 12:55 STATUS: ROJAS REQ #: [id number] LUPE: 06/23/24 07:[address]: Kenny Siddiqui DEPT: SURGICAL PATHOLOGY RECD BY: Alonzo Waldron ENTERED: 06/23/24 13:31 SP TYPE: PLAQUE OTHR DR: MD Joleen Johnson PA Tissues: A - PLAQUE Procedures: Decalcification bone/plaque Surgery Specimen Level III HEADER OPERATION: Carotid endarterectomy PRE-OP DIAGNOSIS: Carotid stenosis TISSUE SUBMITTED: A- Left carotid plaque MICROSCOPIC DIAGNOSIS A. Left carotid, plaque, endarterectomy: * Calcifying atheromatous plaque GROSS DESCRIPTION A. Received in formalin in a container labeled with the patient's name, date of , and left carotid plaque are multiple miller-yellow, membranous and calcified fragments of tissue measuring 2.8 x 2.8 x 1.8 cm in aggregate. Sectioning reveals gritty and firm surfaces. Public Transportation Inspector sections are submitted in A1 following decalcification. [facility] 06-23-2024 CPT:61621,37549
[2024-06-23] MEDS: Cefazolin 2 GM in 0.9% Normal Saline (100mL Bag) 100 ML IV (07:55)
[2024-06-23] MEDS: Bupivacaine Mpf 0.5% 30 ML VIAL (10:04)
--- NOTE | 2024-06-23 10:15 | PCM.OPRPT ---
Operative Report (Standard) Operative Information Date of Procedure: 06/23/24 Pre-Operative Diagnosis: left carotid stenosis Post-Operative Diagnosis: same Surgery/Procedure Performed: left carotid endarterectomy featheredger and reducer machine: Yes Director Software Development: Lynette Hardy Tasks completed by optometrist assistant: Opening, Closing, Opening & closing, Hemostasis: Tie and Retracting Type of Anesthesia: General RN Documented Start/Stop Times: Operation Date: 06/23/24 07:30 Case Time Into Pre-Op 06/23/24 05:47 Anesthesia Start 06/23/24 07:40 Into Room 06/23/24 07:40 Out of Pre-Op 06/23/24 07:40 Procedure Start 06/23/24 08:12 Procedure End 06/23/24 10:18 Anesthesia End 06/23/24 10:24 Out of Room 06/23/24 10:24 Into Recovery 06/23/24 10:32 Procedure Start Time: 08:15 Procedure Stop Time: 10:15 Select all DRAINS/GRAFTS/IMPLANTS that apply: Graft Graft details: bovine pericardial patch Estimated Blood Loss: 80 Specimen collected: Yes Description of specimen(s) removed: plaque Description of surgery: HPI: Patient is a 58-year-old male with severe left carotid artery stenosis who presents for elective endarterectomy. Description of procedure: Upon obtained informed consent and verification correct patient procedure site the patient was taken the operating was placed under general anesthesia. He was then positioned prepped and draped in usual sterile fashion and timeout was performed. Oblique incision was made along the anterior border the sternocleidomastoid and Bovie electrocautery was dissect down to the platysma which was divided and self-retaining retractors put in position. Further dissection was then carried down to the sternocleidomastoid which was freed along its anterior border and retracted posterior laterally exposing the carotid sheath. Sharp dissection was then used to dissect free the anterior aspect of the jugular vein with the facial vein identified, ligated with silk ties, and divided. Self-retaining retractors were removed deeper into the wound and the carotid vessels visualized. Sharp dissection was used to dissect free the proximal common carotid artery with care taken to identify and protect the vagus nerve. A right angle was used to place a vessel loop proximally and then we turned attention to the internal carotid artery. This was dissected free with sharp dissection distally beyond the palpable and visible plaque with care taken to identify and protect the hypoglossal nerve. A right angle was used to place a vessel loop distally and the patient was then heparinized and allowed to circulate for 3 minutes with subsequent heparin dosing based on ACT results. Finally sharp dissection was used to dissect free the external carotid artery with a right angle used to place a vessel loop. Vessels were then clamped first the internal followed by the common the external and a longitudinal arteriotomy created with 11 blade extended with Long scissors onto the internal carotid artery beyond the plaque. A 10 Ukrainian [place] shunt was then placed first distally in the internal carotid artery and allowed to backbleed before being placed into the common carotid artery proximally. The shunt was then interrogated and found to be patent with low resistance signal. We then performed endarterectomy with a freer elevator with satisfactory endpoint distally on the internal carotid and eversion endarterectomy of the external carotid artery. Heparinized saline was then used to flush the lumen and cleared of any debris. The distal endpoint was intact with 7-0 Prolene interrupted sutures and a bovine pericardial patch brought on the field. The patch was secured in position using a 6-0 Prolene in a running fashion. Prior to completing the suture line the shunt was withdrawn and the vessel was backbled and the lumen flushed with heparinized saline. After completing the suture line the internal carotid artery clamp was released along the backbleed into the bifurcation and then reoccluded at the origin. Clamps were then removed from the external and common carotid arteries allowing 10 heartbeats of antegrade flow to flush into the external carotid artery before reestablishing flow into the internal carotid artery. After clamps were removed satisfactory hemostasis was noted and the vessels were interrogated with Doppler. The internal carotid artery had patent low resistance signal in the external carotid arteries patent with normal signal. Heparin was then reversed with protamine and the incision inspected for hemostasis. A 19 Ukrainian channel BARBARA was then placed via separate stab incision and incision closed with 2-0 Vicryl, 3-0 Vicryl, 4-0 Monocryl and Dermabond for the skin. At the conclusion of the case the patient was awakened anesthesia moving all extremities to command cranial nerves intact. He was then taken the recovery room with anticipated mission to the intensive care unit for hemodynamic and neurologic monitoring. Surgical Findings: see above Complications Complications: No
--- NOTE | 2024-06-23 10:31 | PCM.POST.ANE ---
Anesthesia: Postop Eval I Current Vital Signs Temperature: 96.8 F Pulse Rate: 68 Blood Pressure: 126/43 Respiratory Rate: 20 Pulse Ox: 100 Oxygen Delivery Method: Room Air Assessment Airway patent: Yes Spontaneous unlabored respirations: Yes Mental status: Awake and Calm nausea: No Vomiting: No Anesthesia Complication: No Fluid Hydration Crystalloid volume administer (ml): 1,700 Total IV fluid infused: 1,700 Progress Note Anesthesia document: Postop Eval 1 completed: Yes
[2024-06-23] MEDS: Ipratropium/Albuterol Sulfate 3 ML AMPUL.NEB INHALATION ×2 (12:43→19:40)
[2024-06-23] MEDS: Budesonide Respules 0.5 MG/2 ML AMPUL.NEB. INHALATION ×2 (12:44→19:40)
[2024-06-23 14:08] LABS: ACT Activated Clotting Time 216 sec (74-137)
[2024-06-23 14:08] LABS: ACT Activated Clotting Time 147 sec (74-137)
[2024-06-23 14:08] LABS: ACT Activated Clotting Time 228 sec (74-137)
[2024-06-23] MEDS: Acetaminophen 500 MG Tablet 1000 MG PO ×2 (14:14→21:32)
[2024-06-23] MEDS: Cefazolin 1 GM/50 ML BAG IV ×2 (15:25→23:28)
--- NOTE | 2024-06-23 18:11 | POSTOPAN2_ITS ---
Anesthesia Postop Eval I Sum Postop Eval Completion status Anesthesia document: Postop Eval 1 completed: Yes Anesthesia Postop Eval I Summary Anesthesia Postop Eval I Summary: Anesthesia Postop Eval I: Assessment Summary Airway patent Yes 06/23/24 10:33 HELP [email or web address] Spontaneous unlabored Yes 06/23/24 10:33 HELP [email or web address] respirations Mental status Awake,Calm 06/23/24 10:33 HELP [email or web address] nausea No 06/23/24 10:33 HELP [email or web address] [email or web address] Vomiting No 06/23/24 10:33 HELP [email or web address] Anesthesia Postop Eval I: Fluid Summary Crystalloid volume administer 1,700 06/23/24 10:33 HELP [email or web address] [email or web address] (ml) Colloids volume administered ( ml) Blood Product volume administered (ml) Total IV fluid infused 1,700 06/23/24 10:33 HELP [email or web address] Anesthesia Postop Eval I: Summary Notes Anesthesia Complication No 06/23/24 10:33 HELP [email or web address] Anesthesia Complication Comment: Post-operative progress note Anesthesia: Postop Eval II Evaluation Mental status: Awake and Calm Pain Level: 1 nausea: No Vomiting: No Complications Anesthesia Complication: No
--- NOTE | 2024-06-23 18:11 | PCM.POSTANE2 ---
Anesthesia Postop Eval I Sum Postop Eval Completion status Anesthesia document: Postop Eval 1 completed: Yes Anesthesia Postop Eval I Summary Anesthesia Postop Eval I Summary: Anesthesia Postop Eval I: Assessment Summary Airway patent Yes 06/23/24 10:33 COMMERCIAL [email or web address] Spontaneous unlabored Yes 06/23/24 10:33 COMMERCIAL COLLECTIONS [email or web address] respirations Mental status Awake,Calm 06/23/24 10:33 COMMERCIAL COLLECTIONS [email or web address] nausea No 06/23/24 10:33 COMMERCIAL COLLECTIONS [email or web address].[email or web address] Vomiting No 06/23/24 10:33 COMMERCIAL COLLECTIONS [email or web address] Anesthesia Postop Eval I: Fluid Summary Crystalloid volume administer 1,700 06/23/24 10:33 COMMERCIAL [email or web address] (ml) Colloids volume administered ( ml) Blood Product volume administered (ml) Total IV fluid infused 1,700 06/23/24 10:33 COMMERCIAL COLLECTIONS [email or web address] Anesthesia Postop Eval I: Summary Notes Anesthesia Complication No 06/23/24 10:33 COMMERCIAL [email or web address] Anesthesia Complication Comment: Post-operative progress note Anesthesia: Postop Eval II Evaluation Mental status: Awake and Calm Pain Level: 1 nausea: No Vomiting: No Complications Anesthesia Complication: No
[2024-06-23] MEDS: hydrALAZINE 20 MG/ML Vial 10 MG IV (19:59)
[2024-06-23] MEDS: 0.9% Saline Lock 10 ML Syringe IV (20:00)
[2024-06-23] MEDS: Atorvastatin Calcium 40 MG Tablet PO (21:31)
[2024-06-24] VITALS (11 sets, daily range): BP systolic 125–159; BP diastolic 55–80; PULSE 62–91; RESP 13–20; TEMP 36.4–36.8; O2SAT 98–100; BMI 23.6
[2024-06-24] MEDS: 0.9% Saline Lock 10 ML Syringe IV (04:16)
[2024-06-24 04:33] LABS: Absolute Lymphocyte Count 0.67 X10^3/uL (0.83-4.51); Basophil# 0.01 X10^3/uL; Basophil% 0.1 % (0-1); Hematocrit 28.5 % (40-54); Hemoglobin 9.8 g/dL (13.0-16.5); Lymphocyte # 0.67 X10^3/ul (0.83-4.51); Lymphocyte % 6.9 % (19-41); Mean Corp Hgb Conc 34.4 g/dL (32-36); Mean Corpuscular Hgb 32.1 pg (27.0-32.0); Mean Corpuscular Volume 93.4 fL (80-94); Mean Platelet Vol. 7.9 fl (6.2-12.0); Monocyte# 0.93 X10^3/uL; Monocyte% 9.6 % (0-10); NRBC Flagged by Analyzer 0 % (0-5); Neutrophil # 8.01 X10^3/uL (2.7-7.7); Neutrophil % 83.1 % (47-70); Platelet Count 235 K/mm3 (150-450); RBC Distribution Width SD 44.7 fl (35.1-43.9); Red Blood Count 3.05 M/mm3 (4.6-6.2); White Blood Count 9.7 K/mm3 (4.4-11.0)
[2024-06-24] MEDS: BENZOCAINE/MENTHOL 1 LOZENGE MUCOUS MEM (04:33)
--- NOTE | 2024-06-24 05:19 | NURSING ---
pt ART line readings w/ SBP's in 180-190's. Pt in room moving wrist, once still, waveform is positional. Manual BP taken x2 by this RN, reading 128/62 and 126/62. Charted accordingly.
[2024-06-24] MEDS: Acetaminophen 500 MG Tablet 1000 MG PO (06:30)
[2024-06-24] MEDS: Ipratropium/Albuterol Sulfate 3 ML AMPUL.NEB INHALATION (06:42)
[2024-06-24] MEDS: Budesonide Respules 0.5 MG/2 ML AMPUL.NEB. INHALATION (06:42)
[2024-06-24] MEDS: Ferrous Sulfate 325 MG Tablet PO (07:41)
[2024-06-24] MEDS: Aspirin 81 MG TAB.CHEW PO (07:41)
[2024-06-24] MEDS: Multivitamins,Therapeutic Tablet 1 TABLET PO (07:41)
[2024-06-24] MEDS: Varenicline 1 MG Tablet PO (07:42)
[2024-06-24] MEDS: amLODIPine 5 MG Tablet PO (07:42)
[2024-06-24] MEDS: Enoxaparin 40 MG/0.4 ML Syringe SC (07:42)
[2024-06-24] MEDS: Calcium (Elemental) 500 MG Tablet PO (07:42)
--- NOTE | 2024-06-24 08:22 | DS.PCM_ITS ---
Providers Date of Admission: 06/23/24 Primary Care Physician: Dr. Denton Gardner MD Reason For Visit: Carotid Endarterectomy Medications at Discharge Home Medications aspirin 81 mg tablet 81 mg PO DAILY SUPPLEMENT 12/14/20 [id number] C-Mn 500 mg-400 mg capsule 1 cap PO DAILY SUPPLEMENT 12/14/20 lutein 20 mg capsule 20 mg PO DAILY SUPPLEMENT 12/14/20 multivitamin 1 cap PO DAILY SUPPLEMENT 12/14/20 ferrous sulfate 27 mg iron tablet 65 mg PO DAILY SUPPLEMENT 03/14/21 calcium 100 mg capsule 600 mg PO DAILY SUPPLEMENT 08/03/21 potassium 75 mg tablet 99 mg PO DAILY SUPPLEMENT 05/03/23 amlodipine 5 mg tablet 5 mg PO QDAY BP 05/01/24 lisinopril 20 mg tablet 20 mg PO QDAY BP 05/08/24 Held on 06/24/24. Instructions: Resume on 06/25/24. rosuvastatin 10 mg tablet 20 mg PO QHS CHOLESTEROL 05/08/24 varenicline tartrate 1 mg tablet 1 mg PO DAILY NICOTINE 05/08/24 fluticasone fur. 200 mcg-umeclid 62.5 mcg-vilant 25 mcg inhalat.powder (Trelegy Ellipta) 1 inh inhalation DAILY COPD 06/06/24 acetaminophen 500 mg tablet 1,000 mg (2 x 500 mg) PO Q8 #0 tabs 06/24/24 oxycodone 5 mg tablet 5 mg PO Q8H PRN PRN Pain Score 4-10 3 days #9 tabs 06/24/24 Hospital Course Operations - (L CEA) Summary of Care Provided Hospital Course: Mr. Ritesh Dodd is a 58 y/o male who underwent planned L CEA on 06/23/24 which was without complication and which he tolerated well. Postoperatively, he was routinely admitted to the ICU for ongoing hemodynamic and neurologic monitoring. He has remained both hemodynamically stable and neurologically intact and stable throughout his admission. BARBARA drain was removed POD#1 morning without issue; the incision site is satisfactory in appearance. He denies any unilateral headache, hoarseness, tongue deviation, unilateral weakness/sensory deficits, difficulty speaking. He had mild, expected pain at the postoperative site which has been well controlled primarily with tylenol. He has voided without difficulty, tolerated a normal diet, and ambulated to his baseline. He is medical stable for discharge home. Physical Exam Const oriented x3 and no apparent distress HEENT normocephalic, head/scalp atraumatic, hearing grossly normal bilaterally and external ears normal Eyes EOMs intact bilaterally General Eye: normal appearance of both eyes Neck Neck Narrative: L CEA incision site with skin glue intact, no dehiscence/hematoma/erythema. BARBARA drain with minimal serosanguineous output. Resp normal respiratory effort Cardio regular rate and regular rhythm Extremity normal to inspection and no clubbing, cyanosis or edema Skin no rashes or lesions noted Neuro oriented x3, CN's II-XII intact bilaterally, moves all extremities, no focal motor deficits and no sensory deficits noted Psych mental status grossly normal Appearance: grossly normal Attitude: calm and engaged Activity / Motor Behavior: appropriate eye contact Speech: normal speech Mood & Affect: euthymic mood Weight / BMI Weight Weight: 164 lb 10.965 oz Body Mass Index (BMI) 23.6 ABG / Lab / Microbiology Data 06/24/24 04:23 06/17/24 16:26 Laboratory: Laboratory Results - last 24 hr 06/23/24 06:53: Activated Clotting Time 147 H 06/23/24 07:37: Activated Clotting Time 228 H 06/23/24 08:22: Activated Clotting Time 216 H 06/24/24 04:23: WBC 9.7, RBC 3.05 L, Hgb 9.8 L, Hct 28.5 L, MCV 93.4, MCH 32.1 H , MCHC 34.4, RDW Std Deviation 44.7 H, RDW Coeff of Glenn 13.0, Plt Count 235, MPV 7.9, Immature Gran % (Auto) 0.300, Neut % (Auto) 83.1 H, Lymph % (Auto) 6.9 L, [place] % (Auto) 9.6, Eos % (Auto) 0.0, Baso % (Auto) 0.1, Absolute Neuts (auto) 8.0 H, Absolute Lymphs (auto) 0.67 L, Nucleated RBC % 0 D/C Instructions Discharge Diet: No restrictions May shower in (days): 1 Weight Bearing Status: Weight bearing as tolerated Lifting Restricted to (Lbs): 20 Lifting Restrictions: do not lift greater than 20 pounds for 3 weeks Call your doctor if your incision/area has: Sudden Increased Bleeding, Increased Pain/ Swelling and Foul Smelling Discharge Call your doctor if you observe: Fever of 101 or Higher and Uncontrolled pain Remove Dressing in: 1 day DC O2, CPAP, BIPAP Needs Home O2 Discharge instructions: No Additional Instructions: INCISION CARE: You have a small bandage on your neck over the site from which the surgical drain was removed. You may remove this bandage tomorrow. As long as there is no residual drainage, you may leave this open to air. If you do notice some continued drainage, you may re-cover with a Band-Aid. Your neck incision site is covered with skin glue which will continue to protect it. The skin glue will peel/flake off on its own over the next few weeks. Please do not pick at it. You may shower tomorrow. It is okay for soap and water to rinse over the incision site, pat to dry. Do not submerge the incision site in water such as to take a bath or go swimming etc. for 3 weeks. MEDICATION INSTRUCTIONS Continue to take your amlodipine 5mg daily. Hold lisinopril 20mg daily for now. Please check your blood pressure every morning and every evening or any time you feel dizzy/lightheaded or have other symptoms. When your systolic blood pressure (top number) is 140 mmHg then restart your lisinopril 20mg daily. You have been prescribed oxycodone 5mg tablet to be taken by mouth every 8 hours as needed for pain. You may take this in addition to Tylenol 500 to 1000 mg by mouth every 8 hours as needed. You should not drive or operate machinery while taking this medication. Do not take this medication in combination with any other prescription pain medications. Call the office at [phone] with any questions about your medications ACTIVITY INSTRUCTIONS Do not lift greater than 20 pounds for 3 weeks. Otherwise, please continue with activity as tolerated. Do not drive until you can turn your head well enough to safely check your blind spots. FOLLOW-UP INSTRUCTIONS You are scheduled for follow-up in the office on 07/04/24 at 1:00 PM. If you need to change this appointment or have any other questions/concerns, please call the office at [phone]. Please Follow Up With: Joleen Fraire PA When: 07/04/24 Meaningful Use Info Meaningful Use Meaningful Use Diagnoses (Choose all that apply): None applicable Ischemic Stroke Statin Dosing Therapy Reference: STATIN DOSE THERAPY REFERENCE: * Patients > 75 years receive moderate or high dose statin therapy. * Patients 75 years or YOUNGER should receive HIGH intensity statin dose unless contraindicated. You will be required to document reason for non-treatment if statin daily dose does not meet guidelines. HIGH DOSE STATIN THERAPY DAILY Atorvastatin > than or = to 40 mg Rosuvastatin > than or = to 20 mg Amlodipine + Atorvastatin > than or = to 2.5/40 mg Ezetimibe + Simvastatin 10/80 mg Simvastatin 80mg Discharge Plan Admission Admit Date/Time: 06/23/24 10:07 Attending Provider: Kenny Siddiqui Primary Care Provider: Denton Gardner Consulting Providers: Joleen Fraire Instructions Additional Instructions / Restrictions: INCISION CARE: You have a small bandage on your neck over the site from which the surgical drain was removed. You may remove this bandage tomorrow. As long as there is no residual drainage, you may leave this open to air. If you do notice some continued drainage, you may re-cover with a Band-Aid. Your neck incision site is covered with skin glue which will continue to protect it. The skin glue will peel/flake off on its own over the next few weeks. Please do not pick at it. You may shower tomorrow. It is okay for soap and water to rinse over the incision site, pat to dry. Do not submerge the incision site in water such as to take a bath or go swimming etc. for 3 weeks. MEDICATION INSTRUCTIONS Continue to take your amlodipine 5mg daily. Hold lisinopril 20mg daily for now. Please check your blood pressure every morning and every evening or any time you feel dizzy/lightheaded or have other symptoms. When your systolic blood pressure (top number) is 140 mmHg then restart your lisinopril 20mg daily. You have been prescribed oxycodone 5mg tablet to be taken by mouth every 8 hours as needed for pain. You may take this in addition to Tylenol 500 to 1000 mg by mouth every 8 hours as needed. You should not drive or operate machinery while taking this medication. Do not take this medication in combination with any other prescription pain medications. Call the office at [phone] with any questions about your medications ACTIVITY INSTRUCTIONS Do not lift greater than 20 pounds for 3 weeks. Otherwise, please continue with activity as tolerated. Do not drive until you can turn your head well enough to safely check your blind spots. FOLLOW-UP INSTRUCTIONS You are scheduled for follow-up in the office on 07/04/24 at 1:00 PM. If you need to change this appointment or have any other questions/concerns, please call the office at [phone]. Discharge Orders/Prescriptions Prescriptions: New acetaminophen 500 mg Tablet 1,000 mg PO Q8 Qty: 0 0RF oxycodone 5 mg Tablet 5 mg PO Q8H PRN PRN (Reason: Pain Score 4-10) 3 Days Qty: 9 0RF Continued rosuvastatin 10 mg tablet 20 mg PO QHS amlodipine 5 mg tablet 5 mg PO QDAY varenicline tartrate 1 mg tablet 1 mg PO DAILY aspirin 81 mg Tablet 81 mg PO DAILY multivitamin Capsule 1 cap PO DAILY [id number] C-Mn 500-400 mg Capsule 1 cap PO DAILY lutein 20 mg Capsule 20 mg PO DAILY ferrous sulfate 27 mg iron tablet 65 mg PO DAILY calcium 100 mg Capsule 600 mg PO DAILY potassium 75 mg tablet 99 mg PO DAILY Trelegy Ellipta 200-62.5-25 mcg blister with device 1 inh inhalation DAILY Held lisinopril 20 mg tablet 20 mg PO QDAY Hold Instructions: Resume on 06/25/24. Referrals / Follow Up: Denton Gardner MD [Primary Care Provider] - Disposition Disposition (needs filled in before D/C Order can be placed): Home, Self Care
--- NOTE | 2024-06-24 09:25 | CASEMGMT ---
VINH CUI Assessment Face to Face with patient for initial transition planning/care coordination assessment. VINH CUI introduced self and role at [facility], pt voices understanding. Pt is A&Ox4 and is resting comfortably in bed and is calm. Care providers, pharmacy, and demographics verified. Admitting dx: Carotid Endarterectomy LACE Strata: 1 PCP: Denton Gardner Specialists: Ricky (Uro), Artur (Vascular), [facility], Shaw Wilburn (Neuro) Preferred Pharmacy: [facility] Insurance: [email or web address] Prescription Benefit: Yes LNOK: Randy and Tien (Brothers) Living Arrangements: Pt lives alone in a 2 story home with a FFSU and a ramp to enter. Pt states that his brother, Randy, lives next door. ADLs/IADLs: Ind. 6-Click score is 24. Transportation: Self, Randy today. Denies concerns DME: Access to a shower chair, raised toilet seat, cane, crutches, grab bars, FWW, W/C HHC/SNF: Denies hx or needs Pt?s goal: Home Plan: Home, no additional needs. Pt has a DC order placed. Pt states that he feels safe returning home alone today and states that he has plenty of support through his brothers as needed and denies further concerns at this time. Pt RN jacquelin. Colleen Alarcon RN, CM
--- NOTE | 2024-06-24 11:24 | PHA.DC_ITS ---
Pharmacy [facility] has performed discharge medication reconciliation and counseling for this patient. 1. ACETAMINOPHEN 1000MG PO Q8 2. OXYCODONE 5MG PO Q8H PRN PAIN X 3 DAYS The patient's discharge medication list was reviewed for discrepancies and discrepancies were resolved. The patient was counseled on the following discharge medications and changes in medications for homegoing were reviewed. The Reason for Use, instructions for use, and potential side effects were reviewed for all new medications. The patient's questions regarding all of their medications were answered. The patient was able to verbally demonstrate an understanding of their discharge medications. Medications at Discharge Home Medications aspirin 81 mg tablet 81 mg PO DAILY SUPPLEMENT 12/14/20 [id number] C-Mn 500 mg-400 mg capsule 1 cap PO DAILY SUPPLEMENT 12/14/20 lutein 20 mg capsule 20 mg PO DAILY SUPPLEMENT 12/14/20 multivitamin 1 cap PO DAILY SUPPLEMENT 12/14/20 ferrous sulfate 27 mg iron tablet 65 mg PO DAILY SUPPLEMENT 03/14/21 calcium 100 mg capsule 600 mg PO DAILY SUPPLEMENT 08/03/21 potassium 75 mg tablet 99 mg PO DAILY SUPPLEMENT 05/03/23 amlodipine 5 mg tablet 5 mg PO QDAY BP 05/01/24 lisinopril 20 mg tablet 20 mg PO QDAY BP 05/08/24 Held on 06/24/24. Instructions: Resume on 06/25/24. rosuvastatin 10 mg tablet 20 mg PO QHS CHOLESTEROL 05/08/24 varenicline tartrate 1 mg tablet 1 mg PO DAILY NICOTINE 05/08/24 fluticasone fur. 200 mcg-umeclid 62.5 mcg-vilant 25 mcg inhalat.powder (Trelegy Ellipta) 1 inh inhalation DAILY COPD 06/06/24 acetaminophen 500 mg tablet 1,000 mg (2 x 500 mg) PO Q8 #0 tabs 06/24/24 oxycodone 5 mg tablet 5 mg PO Q8H PRN PRN Pain Score 4-10 3 days #9 tabs 06/24/24
== END 2024-06-24 11:20 | disposition home or self-care (01) | DRG 39 ==
PROVIDERS: Physician Assistant; Student in an Organized Health Care Education/Training Program; Admitting Provider Surgery Trauma Surgery; PCP Family Medicine; Referring Provider Surgery Trauma Surgery; Visit Provider Surgery Trauma Surgery
PROC: 03CL0ZZ Extirpation of Matter from Left Internal Carotid Artery, Open Approach (ICD-10-PCS; CPT 35301; principal; 2024-06-23 07:10)
DX: I65.23 Occlusion and stenosis of bilateral carotid arteries (principal); E61.1 Iron deficiency; J44.9 Chronic obstructive pulmonary disease, unspecified; I10 Essential (primary) hypertension; E78.00 Pure hypercholesterolemia, unspecified; Z79.82 Long term (current) use of aspirin; Z86.73 Personal history of transient ischemic attack (TIA), and cerebral infarction without residual deficits; Z79.51 Long term (current) use of inhaled steroids; Z79.899 Other long term (current) drug therapy; Z87.891 Personal history of nicotine dependence
CPT/HCPCS: 36415; 80048; 85025; 85027; 85347; 86850; 86900; 86901; 88304; 88311; 93005; 94640; 94668; 97802; 99252; A4648; A4216; G0463; J2405

== ENCOUNTER → 2024-10-20 | Outpatient (CLI) | payer BC, SELFPAY ==
--- NOTE | 2024-10-20 12:57 | CT_ITS ---
PROCEDURE: CHEST WITHOUT CONTRAST 10/20/2024 REASON FOR EXAM: RUL 2 CM NODULE Follow-up examination. TECHNIQUE: Chest CT without contrast. Coronal and Sagittal reconstruction series were provided. One or more dose reduction techniques were used (e.g., Automated exposure control, adjustment of the mA and/or kV according to patient size, use of iterative reconstruction technique RADIATION DOSE SUMMARY: CTDlvol: 8.75 mGy DLP: 356.35 mGycm COMPARISON: Prior study dated April 17, 2024. FINDINGS: Hardware: None Mild enlargement of the thyroid gland. Lymph nodes: Stable small benign-appearing bilateral axillary lymph nodes. Stable small mediastinal lymph nodes. Heart and Vasculature: The heart is nonenlarged. Atherosclerotic calcifications of the thoracic aorta. Thoracic aorta and pulmonary arteries have normal contours; noncontrast technique limits evaluation. Coronary Artery Calcifications: Present Lungs and Airways: Since prior study, there has been a slight decrease in size presently measuring 1.7 cm of the irregular nodular density in the upper lateral aspect of the right upper lobe. Air bronchograms are seen within it. This most likely represents a focal area of scarring. Pleura: No pleural effusion. Upper Abdomen: Unremarkable. Bones: Degenerative changes of the thoracic spine. Stable loss of height of mid dorsal vertebrae. CT/Chest without Contrast IMPRESSION: Coronary artery calcification (CAC) is is present Slight decrease in size of the irregular nodular density in the peripheral late ral aspect of the right upper lobe suggestive of possible scarring. Repeat examination in 6 months recommended. Reading Location: [facility]
== END | disposition home or self-care (01) ==
LOC: CT 12:55
PROVIDERS: PCP Family Medicine; Referring Provider Nurse Practitioner Family; Visit Provider Nurse Practitioner Family
DX: R91.1 Solitary pulmonary nodule (principal)
CPT/HCPCS: 71250

== ENCOUNTER → 2024-12-25 | Outpatient (CLI) | payer BC, SELFPAY ==
[2024-12-25 11:12] LABS: PSA,Total - Annual Screen 0.29 ng/mL (0.02-4.00)
== END | disposition home or self-care (01) ==
LOC: LAB 08:39
PROVIDERS: PCP Family Medicine; Referring Provider Urology; Visit Provider Urology
DX: Z12.5 Encounter for screening for malignant neoplasm of prostate (principal)
CPT/HCPCS: 36415; 84153; G0103

== ENCOUNTER → 2025-01-05 | Outpatient (CLI) | payer BC, SELFPAY ==
--- NOTE | 2025-01-05 08:55 | CDU_ITS ---
Reason For Study Reason For Study: s/p Bilateral Endart Rt. Velocities/BP Lt. Velocities/BP Prox CCA 117/11 cm/sec. Prox CCA 133/19 cm/sec. Mid CCA 102/16 cm/sec. Mid CCA 153/26 cm/sec. Dist CCA 117/23 cm/sec. Dist CCA 176/27 cm/sec. Prox ICA 82/11 cm/sec. Prox ICA 63/18 cm/sec. Mid ICA 88/19 cm/sec. Mid ICA 99/30 cm/sec. Dist ICA 127/30 cm/sec. Dist ICA 118/38 cm/sec. Rt. ICA/CCA = 1.2. Lt. ICA/CCA = 0.8. Prox ECA 125/12 cm/sec. Prox ECA 81/11 cm/sec. Rt. Vert. 84/12 cm/sec. Lt. Vert. 76/17 cm/sec. Right Extracranial There is heterogeneous, irregular atherosclerotic plaque noted in the right common carotid artery. There is heterogeneous, smooth atherosclerotic plaque noted in the right internal carotid artery. There is heterogeneous, irregular atherosclerotic plaque noted in the right external carotid artery. Antegrade flow is noted in the right vertebral artery. Left Extracranial There is heterogeneous, irregular atherosclerotic plaque noted in the left common carotid artery. Lt distal CCA measures 1.54cm x 1.65cm. There is heterogeneous, smooth atherosclerotic plaque noted in the left internal carotid artery. There is no significant atherosclerotic plaque noted in the left external carotid artery. Antegrade flow is noted in the left vertebral artery. Procedure Carotid Duplex [id number]. This is a Carotid Duplex examination using B-mode, color flow and specral Doppler. Exam performed in department. VL/Carotid Duplex Ultrasound Interpretation Summary Moderate (50-69%) stenosis right extracranial internal carotid. Mild (<50%) stenosis left extracranial internal carotid. Patent and antegrade vertebrals bilaterally. Ordering Physician: Joleen Fraire Referring Physician: Denton Gardner Performed By: Oksana Wick, RDCS, RVT
== END | disposition home or self-care (01) ==
LOC: CVS 08:54
PROVIDERS: PCP Family Medicine; Referring Provider Physician Assistant; Visit Provider Physician Assistant
DX: I65.23 Occlusion and stenosis of bilateral carotid arteries (principal); Z98.890 Other specified postprocedural states
CPT/HCPCS: 93880